=== PATIENT | male | born 1950 | race Caucasian/White ===

== ENCOUNTER → 2019-07-09 | Outpatient (CLI) | payer MEDICARE ==
--- NOTE | 2019-07-09 09:12 | Diagnostic Imaging Report ---
PROCEDURE: US Abdomen, limited. TECHNIQUE: Multiple Real-time grayscale images were obtained over the abdomen in various projections. INDICATION: Elevated liver function studies. FINDINGS: The liver measures 18 cm which is within normal limits. In the anterior right hepatic lobe, there is a benign unilocular simple cyst measuring 3.4 cm. In the lateral aspect of the left hepatic lobe inferiorly, there is a well-defined homogenously echogenic nodule measuring 2.3 cm with features most often associated with a benign cavernous hemangioma. The liver parenchyma is otherwise normal and there is no intra or extrahepatic bile duct dilatation. There are small stones within the gallbladder lumen but no gallbladder wall thickening or pericholecystic fluid. The intra and extrahepatic bile ducts are nondilated. The right kidney contains a cyst measuring 2.5 cm which is unilocular and simple as well as exophytic. The right kidney is otherwise normal measuring 11.5 cm. There is no ascites. The Evans sign is negative. The pancreas is partially visualized and unremarkable where seen. IMPRESSION: 1. Simple appearing hepatorenal cysts. 2. Homogenously hyperechoic left lobe liver nodule, most consistent with a cavernous hemangioma. 3. Cholelithiasis without findings of acute cholecystitis or biliary dilatation. 4. No ascites. Dictated by: Dictated on workstation # [id number]
== END ==
LOC: RAD 07:50
PROVIDERS: ATTEND Family Medicine
DX: K76.89 Other specified diseases of liver (principal); K80.20 Calculus of gallbladder without cholecystitis without obstruction
CPT/HCPCS: 76705

== ENCOUNTER → 2020-03-06 | Outpatient (CLI) | payer MEDICARE ==
[~2020-03-06] MED LIST: BARIUM SUSPENSION 2.1% (VANILLA SILQ) 450 ML PO ONE; HOLD METFORMIN - RECEIVED CONTRAST 20 ML VIAL IV SCH; IOHEXOL 350 MG/ML 100 ML (OMNIPAQUE 350) VIAL IV ONE
== END ==
LOC: RAD 08:33
PROVIDERS: ATTEND Internal Medicine Hematology & Oncology
DX: D58.2 Other hemoglobinopathies (principal); R94.5 Abnormal results of liver function studies; R39.11 Hesitancy of micturition; R91.1 Solitary pulmonary nodule
CPT/HCPCS: 71260; 74178

== ENCOUNTER 2020-04-01 05:52 | Outpatient (RCR) | payer MEDICARE ==
[~2020-04-01] VITALS: Ht 167.7 cm; Wt 71.8 kg
[2020-04-01] MEDS ORDERED: LISI40TA PO (12:33)
[2020-04-01] MEDS ORDERED: AMLO10TA7 PO (12:33)
[2020-04-01] MEDS ORDERED: RT-ALBUINH INH (12:33)
[2020-04-01] MEDS ORDERED: FLUT1DIS26 IH (12:33)
[2020-04-01] MEDS ORDERED: FAMO20TA3 PO (12:33)
[2020-04-02] MEDS ORDERED: SULF1TAB35 PO (11:36)
[2020-04-02] MEDS ORDERED: PHEN-640 PO (11:36)
[2020-04-02] MEDS ORDERED: HYOS0.1281 PO (11:36)
== END 2020-04-01 12:37 | disposition home or self-care (01) ==
LOC: PREOP 05:52
PROVIDERS: ATTEND Urology
DX: Z01.818 Encounter for other preprocedural examination (principal); C67.9 Malignant neoplasm of bladder, unspecified

== ENCOUNTER 2020-04-02 07:55 | Day surgery (SDC) | payer MEDICARE ==
[2020-04-02] VITALS (11 sets, daily range): BP systolic 76–155; BP diastolic 56–104
[~2020-04-02] VITALS: Ht 167 cm; Wt 71.8 kg
--- NOTE | 2020-04-02 07:22 | Progress Note-Pre Operative ---
Pre-Operative Progress Note H&P Reviewed The H&P was reviewed, patient examined and no changes noted. Date Seen by Provider: Apr 02, 2020 Time Seen by Provider: 09:13 Date H&P Reviewed: Apr 02, 2020 Time H&P Reviewed: 09:13 Pre-Operative Diagnosis: LARGE BLADDER TUMOR TEMI LOREDO MD Apr 02, 2020 07:22
--- NOTE | 2020-04-02 07:23 | Progress Note-Post Operative ---
Post-Operative Progess Note Surgeon (s)/Ethanol Operator (s) Surgeon TEMI LOREDO MD Ethanol Operator: NONE Pre-Operative Diagnosis LARGE BLADDER TUMOR Post-Operative Diagnosis SAME Procedure & Operative Findings Date of Procedure 04/02/20 Procedure Performed/Findings TURBT Anesthesia Type GENERAL Estimated Blood Loss Estimated blood loss (mL): NEGLIGIBLE Specimens/Packing Specimens Removed BLADDER TUMOR AND BASES Packing: NONE TEMI LOREDO MD Apr 02, 2020 07:23
--- NOTE | 2020-04-02 07:25 | Discharge Inst-Urology ---
Discharge Inst-Urology Reconcile Patient Problems Problems Reviewed?: Yes Final Diagnosis Bladder tumor Patient Instructions/Follow Up Plan/Assessment/Instructions Please make appointment to been seen in office in 2 weeks. Rest till then Keep bowels soft and moving Increase oral fluids for 48 hours and then as needed. Diet as tolerated. If questions or concerns contact your physician Or seek help at emergency department. TEMI LOREDO MD Apr 02, 2020 07:25
[~2020-04-02 07:55] MED LIST changes: +AMLO10TA7 PO; -BARIUM SUSPENSION 2.1% (VANILLA SILQ) 450 ML PO ONE; +FAMO20TA3 PO; +FLUT1DIS26 IH; -HOLD METFORMIN - RECEIVED CONTRAST 20 ML VIAL IV SCH; -IOHEXOL 350 MG/ML 100 ML (OMNIPAQUE 350) VIAL IV ONE; +LISI40TA PO; +RT-ALBUINH INH
--- OUTSIDE RECORDS SUMMARY | 2020-04-02 08:01 | XMS REPORT ---
Author Author Fausto Bernal Organization [facility] Address [address] [place] [address] Care Team Providers Care Executive Vice President Name Role Phone Dolores OBDULIO Unavailable PROBLEMS Type Condition ICD9-CM Code [id number] Code Onset Dates Condition S tatus SNOMED Code Problem Seasonal allergic rhinitis, unspecified trigger J3 0.2 Active 754613611 Problem Chronic obstructive pulmonary disease, unspecified COPD ty pe J44.9 Active 73676771 Problem Other hyperlipidemia E78.49 Active 04275998 Problem HTN (hypertension), benign I10 Act richie 68726616 Problem Pure hypercholesterolemia E78.00 Acti ve 955781221 Problem Essential hypertension I10 Active 74707084 ALLERGIES No Known Allergies ENCOUNTERS Encounter Location Date Diagnosis [address] [id number] [address] May, [address] [id number], [place] [address] Feb, [address] [id number] [address] January, [address] [id number] [address] January, Rash R21 [address] [id number], [place] [address] January, Pure hypercholesterolemia E7 8.00 ; Localized swelling of back R22.2 ; Chronic obstructive pulmonary disease, unspecified COPD type J44.9 and Seasonal allergic rhinitis, unspecified trigger J30.[address] [id number], [place] [address] January, [address] [id number] [place] [address] Nov, [facility] [place] [address] [id number] [place] [address] Nov, [facility] [place] [address] [id number] [place] [address] Sep, [facility] [place] [address] [id number] [place] [address] Aug, [facility] [place] [address] [id number] [place] [address] Jul, [facility] [place] [address] [id number] [place] [address] Jun, Elevated liver enzymes R74.8 [facility] [place] [address] [facility] [id number] [facility], [place] [address] Jun, Elevated alkaline phosphatase level R74.8 ; Essential hypertension I10 ; Pure hypercholesterolemia E78.00 and Encounter for immunization Z23 [facility] [address] [facility] [id number] [place], [place] [address] May, Other hyperlipidemia E78.49 and HTN (hypertension), benign I10 [facility] [place] [address] [id number] [place] [address] May, HTN (hypertension), benign I 10 [facility] [place] [address] [id number] [place] [address] Mar, [facility] [address] [facility] [id number] [place], [place] [address] Mar, [facility] [address] [facility] [id number] [place], [place] [address] Dec, [facility] [address] [facility] [id number] [place], [place] [address] Dec, HTN (hypertension), benign I10 and Pure hypercholesterolemia E78.00 [facility] [address] [facility] [id number] [place], [place] [address] Dec, Hypertension, unspecified type I10 and Other hyperlipidemia E78.49 [facility] [place] [address] [facility] [id number] [place], [place] [address] Nov, IMMUNIZATIONS No Known Immunizations SOCIAL HISTORY Never Assessed REASON FOR VISIT 6 month f/u PLAN OF CARE Activity Details Follow Up 6 Months Reason: VITAL SIGNS Height 66 in 2018-12-12 Weight 185 lbs 2018-12-12 BMI 29.86 kg/m2 2018-12-12 Blood pressure systolic 131 mmHg 2018-12-12 Blood pressure diastolic 70 mmHg 2018-12-12 MEDICATIONS Medication Instructions Dosage Frequency Start Date End Date Duration S tatus Lisinopril 40 MG Orally Once a day 1 tablet 24h Active Famotidine 20 MG Orally 2 times a day 1 tablet at bedtime 12h 30 day(s) Active Hydrochlorothiazide 25 MG Orally Once a day 1 tablet in the morning 24 h 90 days Active Atorvastatin Calcium 40 MG TAKE 1 TABLET BY MOUTH ONCE DAILY LATE IN THE DAY 90 days Active Advair Diskus 250-50 MCG/DOSE Inhalation Twice a day 1 puff 12h Active Colchicine 0.6 MG Orally Once a day 2 tablet 24h 30 day(s) Active Amlodipine Besylate 10 MG Orally Once a day 1 tablet 24h Active RESULTS No Results PROCEDURES Procedure Date Ordered Result Body Site [facility] VISIT ESTABLISHED PATIENT December 12, 2018 INSTRUCTIONS MEDICATIONS ADMINISTERED No Known Medications MEDICAL (GENERAL) HISTORY Type Description Date Medical History hypertension Medical History colonoscopy - 2018 Medical History Gout
--- OUTSIDE RECORDS SUMMARY | 2020-04-02 08:01 | XMS REPORT ---
Author Author Fausto Bernal Organization [facility] Address [address] [place] [address] Care Team Providers Care Electronic Organ Mechanic Name Role Phone DoloresRITIKAOBDULIO Unavailable PROBLEMS Type Condition ICD9-CM Code [id number] Code Onset Dates Condition S tatus SNOMED Code Problem Pure hypercholesterolemia E78.00 Acti ve 005494365 Problem Essential hypertension I10 Active 88473587 Problem Other hyperlipidemia E78.49 Active 58641928 Problem HTN (hypertension), benign I10 Act richie 81972234 ALLERGIES No Information ENCOUNTERS Encounter Location Date Diagnosis [address] [id number] [address] January, [address] [id number], [place] [address] Nov, [address] [id number] [address] Nov, [address] [id number], [place] [address] Sep, [address] 340 [id number], [place] [address] Aug, [address] [id number], [place] [address] Jul, [address] 340[address] [id number], [place] [address] Jun, Elevated liver enzymes R74.8 [facility] [address] [facility] [id number] [place] [address] Jun, Elevated alkaline phosphatase level R74.8 ; Essential hypertension I10 ; Pure hypercholesterolemia E78.00 and Encounter for immunization Z23 [facility] [place] [address] [facility] [id number] [place] [address] May, Other hyperlipidemia E78.49 and HTN (hypertension), benign I10 [address] [id number] [place] [address] May, HTN (hypertension), benign I [address] [id number] [place] [address] Mar, [facility] [place] [address] [id number] Mar, [facility] [place] [id number] [address] Dec, [facility] [place] [id number] [address] Dec, HTN (hypertension), benign I10 and Pure hypercholesterolemia E78.00 [facility] [place] [address]005[address], [place] [address] Dec, Hypertension, unspecified type I10 and Other hyperlipidemia E78.49 [facility] [place] [address]65[address] [id number] Nov, IMMUNIZATIONS No Known Immunizations SOCIAL HISTORY Never Assessed REASON FOR VISIT Lab (walk-in) PLAN OF CARE VITAL SIGNS MEDICATIONS Unknown Medications RESULTS No Results PROCEDURES Procedure Date Ordered Result Body Site LAB NOT BILLED BY [facility] December 11, 2018 ROUTINE VENIPUNCTURE 2018-12-11 N/A INSTRUCTIONS MEDICATIONS ADMINISTERED No Known Medications MEDICAL (GENERAL) HISTORY Type Description Date Medical History hypertension Medical History colonoscopy - 2018 Medical History Gout
--- OUTSIDE RECORDS SUMMARY | 2020-04-02 08:01 | XMS REPORT | Continuity of Care Document ---
Author Organization Unknown Address Unknown Phone Unavailable Allergies Active Description Code Type Severity Reaction Onset Reported/Identified Relationship to Patient Clinical Status Yes No Allergy Information Available [id number] 80015 Drug Allergy Unknown N/A 020 Medications There is no data. Problems Date Dx Coded Attending Type Code Diagnosis Diagnosed By 08/07/2019 SULEMA VERGARA, OBDULIO Brown Ot K76.89 OTHER SPECIFIED DISEASES OF LIVER 08/07/2019 OBDULIO LEONE MD, Ot K80.20 CALCULUS OF GALLBLADDER W/O CHOLECYSTITI 03/10/2020 TONNY HERNANDEZ MD, Ot D58. 2 OTHER HEMOGLOBINOPATHIES 03/10/2020 TONNY HERNANDEZ MD Ot R39. 11 HESITANCY OF MICTURITION 03/10/2020 TONNY HERNANDEZ MD Ot R91. 1 SOLITARY PULMONARY NODULE 03/10/2020 TONNY HERNANDEZ MD Ot R94. 5 ABNORMAL RESULTS OF LIVER FUNCTION STUDI 03/12/2020 TONNY HERNANDEZ MD Ot D58. 2 OTHER HEMOGLOBINOPATHIES 03/12/2020 TONNY HERNANDEZ MD Ot R39. 11 HESITANCY OF MICTURITION 03/12/2020 TONNY HERNANDEZ MD Ot R91. 1 SOLITARY PULMONARY NODULE 03/12/2020 TONNY HERNANDEZ MD Ot R94. 5 ABNORMAL RESULTS OF LIVER FUNCTION STUDI 03/28/2020 TONNY HERNANDEZ MD Ot D58. 2 OTHER HEMOGLOBINOPATHIES 03/28/2020 TONNY HERNANDEZ MD Ot R39. 11 HESITANCY OF MICTURITION 03/28/2020 TONNY HERNANDEZ MD Ot R91. 1 SOLITARY PULMONARY NODULE 03/28/2020 TONNY HERNANDEZ MD Ot R94. 5 ABNORMAL RESULTS OF LIVER FUNCTION STUDI Procedures There is no data. Results Test Result Range CMP - 12/11/18 11:34 GLUCOSE 92 mg/dL 65-99 UREA NITROGEN (BUN) 22 mg/dL 7-25 CREATININE 0.93 mg/dL 0.70-1.25 eGFR NON-AFR. [place] 83 mL/min/1.73m2 > OR = 60 eGFR 97 mL/min/1.73m2 > OR = 60 BUN/CREATININE RATIO NOT APPLICABLE (calc) 6-22 SODIUM 137 mmol/L 135-146 POTASSIUM 4.4 mmol/L 3.5-5.3 CHLORIDE 104 mmol/L 98-110 CARBON DIOXIDE 25 mmol/L 20-32 CALCIUM 9.2 mg/dL 8.6-10.3 PROTEIN, TOTAL 5.6 g/dL 6.1-8.1 ALBUMIN 3.1 g/dL 3.6-5.1 GLOBULIN 2.5 g/dL (calc) 1.9-3.7 ALBUMIN/GLOBULIN RATIO 1.2 (calc) 1.0-2. 5 BILIRUBIN, TOTAL 0.5 mg/dL 0.2-1.2 ALKALINE PHOSPHATASE 235 U/L 40-115 AST 27 U/L 10-35 ALT 19 U/L 9-46 LIPID PANEL - 06/11/19 08:12 CHOLESTEROL, TOTAL 365 mg/dL <200 HDL CHOLESTEROL 36 mg/dL >40 TRIGLYCERIDES 373 mg/dL <150 LDL-CHOLESTEROL 266 mg/dL (calc) NRG CHOL/HDLC RATIO 10.1 (calc) <5.0 NON HDL CHOLESTEROL 329 mg/dL (calc) <13 0 CMP - 06/11/19 08:12 GLUCOSE 92 mg/dL 65-99 UREA NITROGEN (BUN) 32 mg/dL 7-25 CREATININE 1.18 mg/dL 0.70-1.25 eGFR NON-AFR. [place] 63 mL/min/1.73m2 > OR = 60 eGFR 73 mL/min/1.73m2 > OR = 60 BUN/CREATININE RATIO 27 (calc) 6-22 SODIUM 141 mmol/L 135-146 POTASSIUM 4.8 mmol/L 3.5-5.3 CHLORIDE 104 mmol/L 98-110 CARBON DIOXIDE 24 mmol/L 20-32 CALCIUM 9.3 mg/dL 8.6-10.3 PROTEIN, TOTAL 5.5 g/dL 6.1-8.1 ALBUMIN 3.0 g/dL 3.6-5.1 GLOBULIN 2.5 g/dL (calc) 1.9-3.7 ALBUMIN/GLOBULIN RATIO 1.2 (calc) 1.0-2. 5 BILIRUBIN, TOTAL 0.5 mg/dL 0.2-1.2 ALKALINE PHOSPHATASE 378 U/L 40-115 AST 34 U/L 10-35 ALT 28 U/L 9-46 GGT - 07/03/19 12:22 GGT 519 U/L 3-70 LIPID PANEL - 02/07/20 11:52 CHOLESTEROL, TOTAL 258 mg/dL <200 HDL CHOLESTEROL 50 mg/dL > OR = 40 TRIGLYCERIDES 156 mg/dL <150 LDL-CHOLESTEROL 178 mg/dL (calc) NRG CHOL/HDLC RATIO 5.2 (calc) <5.0 NON HDL CHOLESTEROL 208 mg/dL (calc) <13 0 CMP - 02/07/20 11:52 GLUCOSE 92 mg/dL 65-99 UREA NITROGEN (BUN) 23 mg/dL 7-25 CREATININE 0.95 mg/dL 0.70-1.18 eGFR NON-AFR. [place] 81 mL/min/1.73m2 > OR = 60 eGFR 94 mL/min/1.73m2 > OR = 60 BUN/CREATININE RATIO NOT APPLICABLE (calc) 6-22 SODIUM 137 mmol/L 135-146 POTASSIUM 4.9 mmol/L 3.5-5.3 CHLORIDE 108 mmol/L 98-110 CARBON DIOXIDE 24 mmol/L 20-32 CALCIUM 8.9 mg/dL 8.6-10.3 PROTEIN, TOTAL 4.9 g/dL 6.1-8.1 ALBUMIN 2.6 g/dL 3.6-5.1 GLOBULIN 2.3 g/dL (calc) 1.9-3.7 ALBUMIN/GLOBULIN RATIO 1.1 (calc) 1.0-2. 5 BILIRUBIN, TOTAL 0.4 mg/dL 0.2-1.2 ALKALINE PHOSPHATASE 708 U/L 35-144 AST 52 U/L 10-35 ALT 44 U/L 9-46 CBC - 02/07/20 11:52 WHITE BLOOD CELL COUNT 8.5 Thousand/uL 3 .8-10.8 RED BLOOD CELL COUNT 6.01 Million/uL 4.2 0-5.80 HEMOGLOBIN 18.1 g/dL 13.2-17.1 HEMATOCRIT 53.9 % 38.5-50.0 MCV 89.7 fL 80.0-100.0 MCH 30.1 pg 27.0-33.0 MCHC 33.6 g/dL 32.0-36.0 RDW 15.3 % 11.0-15.0 PLATELET COUNT 429 Thousand/uL 140-400 MPV 11.6 fL 7.5-12.5 ABSOLUTE NEUTROPHILS 4896 cells/uL 1500- 7800 ABSOLUTE LYMPHOCYTES 2295 cells/uL 850-3 900 ABSOLUTE MONOCYTES 1003 cells/uL 200-950 ABSOLUTE EOSINOPHILS 145 cells/uL 15-500 ABSOLUTE BASOPHILS 162 cells/uL 0-200 NEUTROPHILS 57.6 % NRG LYMPHOCYTES 27.0 % NRG MONOCYTES 11.8 % NRG EOSINOPHILS 1.7 % NRG BASOPHILS 1.9 % NRG Encounters ACCT No. Visit Date/Time Discharge Status Pt. Type Provider Facility Loc./Unit Complaint [id number] 07/03/2019 11:40:00 07/03/2019 23:59: 59 CLS Outpatient OBDULIO LEONE [facility] [id number] 02/07/2020 10:45:00 Document Registration [id number] 07/03/2019 11:40:00 Document Registration [id number] 06/11/2019 08:00:00 Document Registration [id number] 12/11/2018 11:20:00 Document Registration [id number] 03/18/2020 12:41:00 23:59:59 CLS Outpatient TONNY HERNANDEZ MD [facility] ONC [id number] 03/06/2020 08:33:00 020 23:59:59 CLS Outpatient TONNY HERNANDEZ MD [facility] RAD ELEVATED HEMOGLOBIN,SJ G NODULE,URINARY HESITANCY [id number] 07/09/2019 07:50:00 23:59:59 CLS Outpatient OBDULIO LEONE MD [facility] RAD ELEVATED LIVER ENZYMES
[2020-04-02] MEDS ORDERED: cefTRIAXone FOR IV USE 1,000 MG in WATER (STERILE) FOR INJECTION 10 ML IV ONE (08:15)
[2020-04-02] MEDS: LACTATED RINGERS 1,000 ML IV PRN ×2 (08:41→11:36)
[2020-04-02] MEDS ORDERED: proPOfol 200 MG/20 ML (DIPRIVAN) VIAL IV ONE ×2 (10:07→11:08)
[2020-04-02] MEDS ORDERED: SEVOFLURANE (ULTANE) 15 ML INHAL SOLN ONE ×3 (10:07→11:23)
[2020-04-02] MEDS ORDERED: fentaNYL INJECTION 100 MCG/2 ML AMP ONE (10:08)
[2020-04-02] MEDS ORDERED: MIDAZOLAM 2 MG/2 ML (VERSED) VIAL ONE (10:08)
[2020-04-02] MEDS ORDERED: ONDANSETRON 4 MG/2 ML (SDV) Z0FRAN ONE (10:11)
[2020-04-02] MEDS ORDERED: LIDOCAINE PF 2% 5 ML (XYLOCAINE) VIAL ONE (11:23)
[2020-04-02] MEDS ORDERED: ONDANSETRON 4 MG/2 ML (SDV) Z0FRAN IVP PRN (11:30)
[2020-04-02] MEDS ORDERED: fentaNYL INJECTION 100 MCG/2 ML AMP IVP ONE (11:30)
[2020-04-02] MEDS ORDERED: morphine INJ 10 MG/ML 1ML (SYR OR VIAL) IVP ONE (11:30)
[2020-04-02] MEDS ORDERED: SULF1TAB35 PO (11:36)
[2020-04-02] MEDS ORDERED: HYOS0.1281 PO (11:36)
[2020-04-02] MEDS ORDERED: PHEN-640 PO (11:36)
[2020-04-02] MEDS ORDERED: PHENAZOPYRIDINE 100 MG (PYRIDIUM) TABLET ONE (12:51)
[2020-04-02] MEDS ORDERED: PHENAZOPYRIDINE 100 MG (PYRIDIUM) TABLET PO ONE (13:00)
[2020-04-02] MEDS ORDERED: HYOSCYAMINE 0.125 MG (LEVSIN) TAB PO ONE (13:00)
--- NOTE | 2020-04-02 18:15 | OPERATIVE REPORT ---
DATE OF SERVICE: 04/02/2020 PREOPERATIVE DIAGNOSIS: Large bladder tumor. POSTOPERATIVE DIAGNOSIS: Large bladder tumor. OPERATION PERFORMED: Transurethral resection of large bladder tumor. SURGEON: Temi Loredo MD ANESTHESIA: General. COMPLICATIONS: None. DESCRIPTION OF PROCEDURE: Under satisfactory general anesthesia, the patient in lithotomy position, genitalia were prepped and draped in the usual sterile fashion. The urethra was dilated with Jimena sound to accommodate a 27-German Harris resectoscope. Again, visualized the solitary large bladder tumor superficially looking and above and lateral to the right ureteral orifice. I went ahead and resected the tumor completely and then obtained deeper cuts from the bladder wall at the base of the tumor for staging. Bleeders were cauterized. Resection was complete and hemostasis was complete. Ureteric orifice was intact and was a clear efflux coming out easily from it. There was no further bladder tumor. The bladder was evacuated and resectoscope was removed. The patient tolerated the procedure and anesthesia well and was sent to recovery room in stable condition. Job ID: [id number] DocumentID: [id number] Dictated Date: 04/02/2020 11:25:52 Bench Examiner Date: 04/02/2020 18:14:44 Dictated By: TEMI LOREDO MD
== END 2020-04-02 13:20 | disposition home or self-care (01) ==
LOC: SDC 07:55
PROVIDERS: ATTEND Urology
DX: C67.9 Malignant neoplasm of bladder, unspecified (principal); I10 Essential (primary) hypertension; J44.9 Chronic obstructive pulmonary disease, unspecified; E78.5 Hyperlipidemia, unspecified; R91.1 Solitary pulmonary nodule; N52.9 Male erectile dysfunction, unspecified; N40.1 Benign prostatic hyperplasia with lower urinary tract symptoms; R31.9 Hematuria, unspecified; Z87.891 Personal history of nicotine dependence; Z79.899 Other long term (current) drug therapy; Z20.828 Contact with and (suspected) exposure to other viral communicable diseases
CPT/HCPCS: 52240; 87081; U0002; 87635

== ENCOUNTER 2020-04-18 13:21 | Outpatient (RCR) | payer MEDICARE ==
[2020-02-29 11:49] LABS: BASOPHILS # (AUTO) 0.1 10^3/uL (0.0-0.1); BASOPHILS % (AUTO) 2 % (0-10); EOSINOPHILS # (AUTO) 0.1 10^3/uL (0.0-0.3); EOSINOPHILS % (AUTO) 1 % (0-10); HEMATOCRIT 53 % (40-54); HEMOGLOBIN 17.8 G/DL (13.3-17.7); LYMPHOCYTES # (AUTO) 1.5 X 10^3 (1.0-4.0); LYMPHOCYTES % (AUTO) 21 % (12-44); MEAN CORPUSCULAR HEMOGLOBIN 30 PG (25-34); MEAN CORPUSCULAR HGB CONC 33 G/DL (32-36); MEAN CORPUSCULAR VOLUME 90 FL (80-99); MONOCYTES # (AUTO) 0.8 X 10^3 (0.0-1.0); MONOCYTES % (AUTO) 11 % (0-12); NEUTROPHILS # (AUTO) 4.7 X 10^3 (1.8-7.8); NEUTROPHILS % (AUTO) 65 % (42-75); PLATELET COUNT 377 10^3/uL (130-400); WHITE BLOOD COUNT 7.2 10^3/uL (4.3-11.0)
[2020-02-29 12:04] LABS: SMEAR SCAN COMMENT YES
[2020-02-29 12:14] LABS: CARBON DIOXIDE 22 MMOL/L (21-32); CHLORIDE 110 MMOL/L (98-107); SODIUM 141 MMOL/L (135-145)
[2020-02-29 12:15] LABS: ALANINE AMINOTRANSFERASE 41 U/L (0-55); ALBUMIN 2.5 GM/DL (3.2-4.5); ALKALINE PHOSPHATASE 590 U/L (40-136); BILIRUBIN,TOTAL 0.4 MG/DL (0.1-1.0); BUN/CREATININE RATIO 23; CALCIUM 8.6 MG/DL (8.5-10.1); GFR ESTIMATED > 60; GLUCOSE 98 MG/DL (70-105); TOTAL PROTEIN 5.6 GM/DL (6.4-8.2)
[2020-03-18 12:54] LABS: BASOPHILS # (AUTO) 0.1 10^3/uL (0.0-0.1); BASOPHILS % (AUTO) 2 % (0-10); EOSINOPHILS # (AUTO) 0.1 10^3/uL (0.0-0.3); EOSINOPHILS % (AUTO) 1 % (0-10); HEMATOCRIT 52 % (40-54); HEMOGLOBIN 17.3 G/DL (13.3-17.7); LYMPHOCYTES % (AUTO) 25 % (12-44); MEAN CORPUSCULAR HEMOGLOBIN 30 PG (25-34); MEAN CORPUSCULAR HGB CONC 34 G/DL (32-36); MEAN CORPUSCULAR VOLUME 89 FL (80-99); MEAN PLATELET VOLUME 10.6 FL (7.4-10.4); MONOCYTES % (AUTO) 13 % (0-12); NEUTROPHILS # (AUTO) 4.6 X 10^3 (1.8-7.8); NEUTROPHILS % (AUTO) 59 % (42-75); PLATELET COUNT 394 10^3/uL (130-400); WHITE BLOOD COUNT 7.8 10^3/uL (4.3-11.0)
[2020-03-18 13:11] LABS: ALANINE AMINOTRANSFERASE 50 U/L (0-55); ALBUMIN 2.3 GM/DL (3.2-4.5); ALKALINE PHOSPHATASE 624 U/L (40-136); BILIRUBIN,TOTAL 0.4 MG/DL (0.1-1.0); BUN/CREATININE RATIO 18; CALCIUM 8.6 MG/DL (8.5-10.1); CARBON DIOXIDE 22 MMOL/L (21-32); CHLORIDE 106 MMOL/L (98-107); CREATININE SERUM 0.92 MG/DL (0.60-1.30); GFR ESTIMATED > 60; GLUCOSE 97 MG/DL (70-105); POTASSIUM 4.2 MMOL/L (3.6-5.0); SODIUM 137 MMOL/L (135-145); TOTAL PROTEIN 5.4 GM/DL (6.4-8.2)
[~2020-04-18 13:21] MED LIST changes: +HYOS0.1281 PO; +PHEN-640 PO; +SULF1TAB35 PO
== END 2020-05-29 | disposition home or self-care (01) ==
LOC: ONC 13:21
PROVIDERS: ATTEND Internal Medicine Hematology & Oncology
DX: D58.2 Other hemoglobinopathies (principal); R94.5 Abnormal results of liver function studies; R91.1 Solitary pulmonary nodule; E78.5 Hyperlipidemia, unspecified; J44.9 Chronic obstructive pulmonary disease, unspecified; M25.551 Pain in right hip; R39.11 Hesitancy of micturition; Z79.899 Other long term (current) drug therapy; Z87.891 Personal history of nicotine dependence
CPT/HCPCS: 80053; 81270; 82105; 84153; 84403; 85025; G0463; 99213; 99214

== ENCOUNTER 2020-07-16 11:31 | Emergency (ER) | payer MEDICARE ==
[~2020-07-16] VITALS: Ht 167.7 cm; Wt 78.0 kg
[~2020-07-16 11:31] MED LIST changes: +AMLO-251 PO; -AMLO10TA7 PO
--- NOTE | 2020-07-16 12:26 | ED General ---
General Chief Complaint: General Problems/Pain Stated Complaint: VOMIT, DIARRHEA, GENERAL BODY ACHES, COVID POS Nursing Triage Note: PT AMBULATE TO ROOM 10 WITH C/O ABDOMINAL AND LOWER EXTREMITY SWELLING. PT REPORTS HAVING A CANCER TUMOR REMOVED FROM BLADDER IN APRIL. PT STATES THAT HE THOUGHT THAT "SINCE I WAS HERE I BETTER GET CHECKED OUT." Nursing Sepsis Screen: No Definite Risk History of Present Illness Date Seen by Provider: Jul 16, 2020 Time Seen by Provider: 11:58 Initial Comments 69-year-old male presents because he was bringing his in to be checked out. Patient reports he had a cancer tumor removed from his bladder in April, that he got chemotherapy in May. Since then he has had swelling of his abdomen and lower extremities. Patient reports that since he was here he wanted to have his kidneys checked out. He was started on a water pill recently but cannot tell me which one or what the dosages. Patient is known COVID positive is a have any complaints related to the COVID diagnosis. Patient denies any nausea vomiting diarrhea cough or other systemic complaints. Allergies and Home Medications Allergies Coded Allergies: No Known Drug Allergies (Unverified , 04/01/20) Home Medications Albuterol Sulfate 1 Puff Puff, 2 PUFF INH Q4H PRN for WHEEZING, (Reported) 1 PUFF = 90 MCG Amlodipine Besylate 10 Mg Tablet, 10 MG PO DAILY, (Reported) Famotidine 20 Mg Tablet, 20 MG PO DAILY, (Reported) Fluticasone/Salmeterol 1 Each Blst.w.dev, 1 EACH IH BID, (Reported) Hyoscyamine Sulfate 0.125 Mg Tablet, 1-2 TAB PO Q4H Prescribed by: MARIA C ARRIAGA on 04/02/20 1136 Lisinopril 40 Mg Tablet, 40 MG PO DAILY, (Reported) Phenazopyridine HCl 200 Mg Tablet, 1 TAB PO TID Prescribed by: MARIA C ARRIAGA on 04/02/20 1136 Sulfamethoxazole/Trimethoprim 1 Each Tablet, 1 EACH PO BID Prescribed by: MARIA C ARRIAGA on 04/02/20 1136 Patient Home Medication List Home Medication List Reviewed: Yes Review of Systems Review of Systems Constitutional: No chills, No fever, No malaise EENTM: no symptoms reported Respiratory: No cough, No short of breath Cardiovascular: No chest pain; edema; No palpitations Gastrointestinal: see HPI Genitourinary: see HPI Musculoskeletal: no symptoms reported Skin: no symptoms reported Psychiatric/Neurological: No Symptoms Reported Hematologic/Lymphatic: No Symptoms Reported Past Czgywkr-Mgxcjm-Khisco Hx Past Med/Social Hx: Reviewed Nursing Past Med/Soc Hx Patient Social History Alcohol Use: Rarely Uses Recreational Drug Use: No Smoking Status: Former Smoker Former Smoker, Quit: Apr 01, 2011 2nd Hand Smoke Exposure: No Recent Foreign Travel: No Contact w/Someone Who Travel: No Recent Infectious Disease Expo: No Recent Hopitalizations: No Physical Abuse: No Sexual Abuse: No Mistreated: No Fear: No Seasonal Allergies Seasonal Allergies: No Past Medical History Surgeries: No Respiratory: Yes COPD, Emphysema Currently Using CPAP: No Currently Using BIPAP: No Cardiac: Yes Hypertension Neurological: No Genitourinary: Yes (bladder tumor) Gastrointestinal: Yes Gastroesophageal Reflux Musculoskeletal: Yes Arthritis, Gout Endocrine: No HEENT: No Cancer: No Psychosocial: No Integumentary: No Blood Disorders: No Physical Exam Vital Signs Vital Signs - First Documented 07/16/20 11:53 Temp 36.7 Pulse 89 Resp 18 B/P (MAP) 139/102 (114) O2 Delivery Room Air Capillary Refill : Less Than 3 Seconds Height, Weight, BMI Height: '" Weight: lbs. oz. kg; 27.00 BMI Method: General Appearance: No Apparent Distress, WD/WN HEENT: PERRL/EOMI Neck: Non Tender, Supple Respiratory: Lungs Clear, Normal Breath Sounds Cardiovascular: Regular Rate, Rhythm, Other (2+ edema bilateral lower extremities) Gastrointestinal: Other (protuberant, soft, nontender) Back: Normal Inspection, No CVA Tenderness Extremity: Normal Capillary Refill, Swelling (2+ pedal edema) Neurologic/Psychiatric: Alert, Oriented x3, No Motor/Sensory Deficits, Normal Mood/Affect, immigration services officer II-XII Norm as Tested Progress/Results/Core Measures Suspected Sepsis Recent Fever Within 48 Hours: No Infection Criteria Present: None New/Unexplained Altered Menta: No Sepsis Screen: No Definite Risk SIRS Temperature: Pulse: 89 Respiratory Rate: 18 Laboratory Tests 07/16/20 13:02: White Blood Count 6.8 Blood Pressure 139 /102 Mean: 114 Laboratory Tests 07/16/20 13:02: Creatinine 0.98, Platelet Count 337, Total Bilirubin 0.4 Results/Orders Lab Results Laboratory Tests Test 07/16/20 13:02 Range/Units White Blood Count 6.8 4.3-11.0 10^3/uL Red Blood Count 5.44 4.30-5.52 10^6/uL Hemoglobin 16.5 13.3-17.7 g/dL Hematocrit 50 40-54 % Mean Corpuscular Volume 91 80-99 fL Mean Corpuscular Hemoglobin 30 25-34 pg Mean Corpuscular Hemoglobin Concent 33 32-36 g/dL Red Cell Distribution Width 16.9 H 10.0-14.5 % Platelet Count 337 130-400 10^3/uL Mean Platelet Volume 11.7 9.0-12.2 fL Immature Granulocyte % (Auto) 0 % Neutrophils (%) (Auto) 60 42-75 % Lymphocytes (%) (Auto) 20 12-44 % Monocytes (%) (Auto) 18 H 0-12 % Eosinophils (%) (Auto) 0 0-10 % Basophils (%) (Auto) 2 0-10 % Neutrophils # (Auto) 4.1 1.8-7.8 10^3/uL Lymphocytes # (Auto) 1.3 1.0-4.0 10^3/uL Monocytes # (Auto) 1.2 H 0.0-1.0 10^3/uL Eosinophils # (Auto) 0.0 0.0-0.3 10^3/uL Basophils # (Auto) 0.1 0.0-0.1 10^3/uL Immature Granulocyte # (Auto) 0.0 0.0-0.1 10^3/uL Sodium Level 138 135-145 MMOL/L Potassium Level 4.0 3.6-5.0 MMOL/L Chloride Level 107 98-107 MMOL/L Carbon Dioxide Level 23 21-32 MMOL/L Anion Gap 8 5-14 MMOL/L Blood Urea Nitrogen 27 H 7-18 MG/DL Creatinine 0.98 0.60-1.30 MG/DL Estimat Glomerular Filtration Rate > 60 BUN/Creatinine Ratio 28 Glucose Level 83 70-105 MG/DL Calcium Level 7.8 L 8.5-10.1 MG/DL Corrected Calcium 9.6 8.5-10.1 MG/DL Total Bilirubin 0.4 0.1-1.0 MG/DL Aspartate Amino Transf (AST/SGOT) 56 H 5-34 U/L Alanine Aminotransferase (ALT/SGPT) 31 0-55 U/L Alkaline Phosphatase 673 H 40-136 U/L Total Protein 4.5 L 6.4-8.2 GM/DL Albumin 1.8 L 3.2-4.5 GM/DL My Orders Orders - EPI SERRANO DO Cbc With Automated Diff (07/16/20 12:15) Comprehensive Metabolic Panel (07/16/20 12:15) Acute Abd Series (07/16/20 12:15) Vital Signs/I&O 07/16/20 11:53 Temp 36.7 Pulse 89 Resp 18 B/P (MAP) 139/102 (114) O2 Delivery Room Air Capillary Refill : Less Than 3 Seconds Blood Pressure Mean: 114 Progress Note : Time: 13:30 Progress Note Patient's vital signs exam are stable. No acute findings that are concerning finding on his kidney function test as he was worried about. Patient with chronic abdominal swelling that I would have him follow with his primary care pr ovider for further evaluation. Patient is currently on a water pill which I recommended he increase it to a day for the next 3-4 days to help with his pedal edema. Patient is stable will be discharged home Departure Impression Primary Impression: 2019 novel coronavirus disease (COVID-19) Additional Impression: Edema leg Disposition: 01 HOME, SELF-CARE Condition: Stable Departure-Patient Inst. Referrals: JN OLEA MD (PCP/Family) Primary Care Physician Patient Instructions: Dependent Edema (DC), Coronavirus Disease 2019 (COVID-19) Overview Add. Discharge Instructions: Please increase your water pill to a day for 3-4 days Follow-up with your primary care provider Tuesday or Tuesday of next week All discharge instructions reviewed with patient and/or family. Voiced understanding. EPI SERRANO DO Jul 16, 2020 12:26
--- NOTE | 2020-07-16 12:58 | Diagnostic Imaging Report ---
INDICATION: Abdominal pain and swelling FINDINGS: No focal consolidation, effusion or pneumothorax. No free air beneath the diaphragms. The bowel gas pattern unremarkable. No air-fluid level or pneumatosis. IMPRESSION: No acute appearing abnormality. Dictated by: Dictated on workstation # [id number]
[2020-07-16 13:09] LABS: BASOPHILS # (AUTO) 0.1 10^3/uL (0.0-0.1); BASOPHILS % (AUTO) 2 % (0-10); EOSINOPHILS % (AUTO) 0 % (0-10); HEMATOCRIT 50 % (40-54); HEMOGLOBIN 16.5 g/dL (13.3-17.7); LYMPHOCYTES # (AUTO) 1.3 10^3/uL (1.0-4.0); LYMPHOCYTES % (AUTO) 20 % (12-44); MEAN CORPUSCULAR HEMOGLOBIN 30 pg (25-34); MEAN CORPUSCULAR HGB CONC 33 g/dL (32-36); MEAN CORPUSCULAR VOLUME 91 fL (80-99); MEAN PLATELET VOLUME 11.7 fL (9.0-12.2); MONOCYTES # (AUTO) 1.2 10^3/uL (0.0-1.0); MONOCYTES % (AUTO) 18 % (0-12); NEUTROPHILS # (AUTO) 4.1 10^3/uL (1.8-7.8); NEUTROPHILS % (AUTO) 60 % (42-75); PLATELET COUNT 337 10^3/uL (130-400); WHITE BLOOD COUNT 6.8 10^3/uL (4.3-11.0)
[2020-07-16 13:18] LABS: ALBUMIN 1.8 GM/DL (3.2-4.5); CHLORIDE 107 MMOL/L (98-107); SODIUM 138 MMOL/L (135-145)
[2020-07-16 13:19] LABS: CALCIUM 7.8 MG/DL (8.5-10.1)
[2020-07-16 13:20] LABS: GLUCOSE 83 MG/DL (70-105); TOTAL PROTEIN 4.5 GM/DL (6.4-8.2)
[2020-07-16 13:21] LABS: CARBON DIOXIDE 23 MMOL/L (21-32)
[2020-07-16 13:22] LABS: BILIRUBIN,TOTAL 0.4 MG/DL (0.1-1.0)
[2020-07-16 13:24] LABS: ALKALINE PHOSPHATASE 673 U/L (40-136); CREATININE SERUM 0.98 MG/DL (0.60-1.30); GFR ESTIMATED > 60
[2020-07-16 13:25] LABS: BUN/CREATININE RATIO 28
[2020-07-16 13:27] LABS: ALANINE AMINOTRANSFERASE 31 U/L (0-55)
[2020-07-16 13:34] LABS: SMEAR SCAN COMMENT YES
[2020-07-16 13:53] VITALS: BP 151/81
== END 2020-07-16 13:53 | disposition home or self-care (01) ==
LOC: EDUNIT# 11:31 → ER 11:35
DX: U07.1 COVID-19 (principal); R60.0 Localized edema; I10 Essential (primary) hypertension; K21.9 Gastro-esophageal reflux disease without esophagitis; Z87.891 Personal history of nicotine dependence
CPT/HCPCS: 36415; 74022; 80053; 85025

== ENCOUNTER 2020-07-26 12:12 | Inpatient (IN) | payer MEDICARE ==
[~2020-07-26] VITALS: Ht 167 cm; Wt 78.0 kg
[2020-07-26 12:54] LABS: BASOPHILS % (AUTO) 1 % (0-10); EOSINOPHILS % (AUTO) 0 % (0-10); HEMATOCRIT 50 % (40-54); HEMOGLOBIN 16.7 g/dL (13.3-17.7); LYMPHOCYTES # (AUTO) 1.2 10^3/uL (1.0-4.0); LYMPHOCYTES % (AUTO) 19 % (12-44); MEAN CORPUSCULAR HEMOGLOBIN 30 pg (25-34); MEAN CORPUSCULAR HGB CONC 33 g/dL (32-36); MEAN CORPUSCULAR VOLUME 89 fL (80-99); MEAN PLATELET VOLUME 12.1 fL (9.0-12.2); MONOCYTES # (AUTO) 0.6 10^3/uL (0.0-1.0); MONOCYTES % (AUTO) 10 % (0-12); NEUTROPHILS # (AUTO) 4.4 10^3/uL (1.8-7.8); NEUTROPHILS % (AUTO) 70 % (42-75); PLATELET COUNT 245 10^3/uL (130-400); WHITE BLOOD COUNT 6.3 10^3/uL (4.3-11.0)
--- NOTE | 2020-07-26 13:30 | Diagnostic Imaging Report ---
INDICATION: Sepsis. Frontal view chest is compared to exam from the 4th. The lungs are clear. The heart and vascularity are normal. There are no pleural effusions. IMPRESSION: Negative chest. Dictated by: Dictated on workstation # [id number]
[2020-07-26 13:32] LABS: ALBUMIN 1.5 GM/DL (3.2-4.5); CHLORIDE 103 MMOL/L (98-107); POTASSIUM 3.8 MMOL/L (3.6-5.0); SODIUM 136 MMOL/L (135-145)
[2020-07-26 13:34] LABS: GLUCOSE 78 MG/DL (70-105); PROTHROMBIN TIME PATIENT 13.2 SEC (12.2-14.7); TOTAL PROTEIN 4.1 GM/DL (6.4-8.2)
[2020-07-26 13:36] LABS: BILIRUBIN,TOTAL 0.7 MG/DL (0.1-1.0); CARBON DIOXIDE 23 MMOL/L (21-32)
[2020-07-26 13:38] LABS: ALKALINE PHOSPHATASE 970 U/L (40-136); GFR ESTIMATED > 60
[2020-07-26 13:39] LABS: BUN/CREATININE RATIO 30
[2020-07-26 13:41] LABS: CLARITY,URINE CLEAR; COLOR,URINE DARK YELLOW; GLUCOSE, URINE (UA) NEGATIVE (NEGATIVE); KETONES,URINE NEGATIVE (NEGATIVE); LEUKOCYTE ESTERASE ,URINE NEGATIVE (NEGATIVE); NITRITE,URINE NEGATIVE (NEGATIVE); PROTEIN,URINE 2+ (NEGATIVE)
[2020-07-26 13:41] LABS: ALANINE AMINOTRANSFERASE 41 U/L (0-55)
[2020-07-26 14:03] LABS: BACTERIA,URINE TRACE /HPF
[2020-07-26 14:18] LABS: BILIRUBIN,URINE 2+ (NEGATIVE)
[2020-07-26] MEDS ORDERED: LACTATED RINGERS 1,000 ML IV ONE ×2 (14:37→18:05)
--- NOTE | 2020-07-26 14:54 | ED General ---
General Chief Complaint: Respiratory Problems Stated Complaint: COVID POSITIVE Nursing Triage Note: PT PRESENTS TO E [facility] FROM HOME WITH COMNPLAINTS OF INCREASED SOA WITH EXERTION. PT REPORTS HE TESTED POSTIVE ON 07/13/2020 FROM COVID. PT REPORTS HIS IS INPT CURRENTLY FOR COVID. PT ALSO REPORTS MAGGIEJAYME Nursing Sepsis Screen: No Definite Risk Source of Information: Patient, Old Records Exam Limitations: No Limitations History of Present Illness Date Seen by Provider: Jul 26, 2020 Time Seen by Provider: 12:21 Initial Comments This 69-year-old gentleman presents to the emergency room with shortness of breath, weakness, fatigue, poor oral intake, and hypoxia. He was diagnosed with Covid 19 almost 2 weeks ago. His is presently admitted for COVID-19. He notes oxygen saturations in the upper 80s at home. He has been using a family members oxygen concentrator. EMS noted oxygen saturation of 87% on room air while he was transferring to their cot. He also has history of bladder cancer which has been treated with surgery and chemotherapy. Allergies and Home Medications Allergies Coded Allergies: No Known Drug Allergies (Unverified , 04/01/20) Home Medications Albuterol Sulfate 1 Puff Puff, 2 PUFF INH Q4H PRN for WHEEZING, (Reported) 1 PUFF = 90 MCG Amlodipine Besylate 10 Mg Tablet, 10 MG PO DAILY, (Reported) Famotidine 20 Mg Tablet, 20 MG PO DAILY, (Reported) Fluticasone/Salmeterol 1 Each Blst.w.dev, 1 EACH IH BID, (Reported) Hyoscyamine Sulfate 0.125 Mg Tablet, 1-2 TAB PO Q4H Prescribed by: MARIA C ARRIAGA on 04/02/20 1136 Lisinopril 40 Mg Tablet, 40 MG PO DAILY, (Reported) Phenazopyridine HCl 200 Mg Tablet, 1 TAB PO TID Prescribed by: MARIA C ARRIAGA on 04/02/20 1136 Sulfamethoxazole/Trimethoprim 1 Each Tablet, 1 EACH PO BID Prescribed by: MARIA C ARRIAGA on 04/02/20 1136 Patient Home Medication List Home Medication List Reviewed: Yes Review of Systems Review of Systems Constitutional: no symptoms reported EENTM: no symptoms reported Respiratory: see HPI Cardiovascular: no symptoms reported Gastrointestinal: see HPI, diarrhea Genitourinary: no symptoms reported Musculoskeletal: no symptoms reported Skin: no symptoms reported Psychiatric/Neurological: No Symptoms Reported Hematologic/Lymphatic: No Symptoms Reported Past Zaprmvk-Tdxyae-Fxqsgq Hx Past Med/Social Hx: Reviewed Nursing Past Med/Soc Hx Patient Social History Alcohol Use: Rarely Uses Recreational Drug Use: No Smoking Status: Former Smoker Former Smoker, Quit: Apr 01, 2011 2nd Hand Smoke Exposure: No Recent Foreign Travel: No Contact w/Someone Who Travel: No Recent Infectious Disease Expo: No Recent Hopitalizations: No Seasonal Allergies Seasonal Allergies: No Past Medical History Surgeries: Yes Bladder Surgery Respiratory: Yes COPD, Emphysema Currently Using CPAP: No Currently Using BIPAP: No Cardiac: Yes Hypertension Neurological: No Genitourinary: Yes (bladder tumor) Gastrointestinal: Yes Gastroesophageal Reflux Musculoskeletal: Yes Arthritis, Gout Endocrine: No HEENT: No Cancer: Yes Bladder Did You Recieve Any Treatments: Yes What Type of Treatment Did You: Chemotherapy, Surgical Intervention Psychosocial: No Integumentary: No Blood Disorders: No Physical Exam Vital Signs Vital Signs - First Documented Capillary Refill : Less Than 3 Seconds Height, Weight, BMI Height: '" Weight: lbs. oz. kg; 26.00 BMI Method: General Appearance: No Apparent Distress, WD/WN HEENT: PERRL/EOMI, Normal ENT Inspection, Other (Mucous membranes dry) Neck: Normal Inspection Respiratory: Lungs Clear, Normal Breath Sounds, No Accessory Muscle Use, No Respiratory Distress Cardiovascular: Regular Rate, Rhythm, No Edema, No Murmur Gastrointestinal: Normal Bowel Sounds, Non Tender, Soft Extremity: Normal Inspection, Pedal Edema Neurologic/Psychiatric: Alert, Oriented x3, No Motor/Sensory Deficits, Normal Mood/Affect, lay ups assembler II-XII Norm as Tested Skin: Normal Color, Warm/Dry Focused Exam Lactate Level 07/26/20 13:14: Lactic Acid Level 1.09 Lactic Acid Level Progress/Results/Core Measures Suspected Sepsis Recent Fever Within 48 Hours: No Infection Criteria Present: Documented Infection New/Unexplained Altered Menta: No Sepsis Screen: No Definite Risk SIRS Temperature: Pulse: 90 Respiratory Rate: 22 Laboratory Tests 07/26/20 12:30: White Blood Count 6.3 Blood Pressure 101 /77 Mean: 85 07/26/20 13:14: Lactic Acid Level 1.09 Laboratory Tests 07/26/20 12:30: Platelet Count 245 07/26/20 13:14: Creatinine 0.90, INR Comment 1.0, Total Bilirubin 0.7 Results/Orders Lab Results Laboratory Tests Test 07/26/20 12:30 07/26/20 13:14 07/26/20 13:34 Range/Units White Blood Count 6.3 4.3-11.0 10^3/uL Red Blood Count 5.59 H 4.30-5.52 10^6/uL Hemoglobin 16.7 13.3-17.7 g/dL Hematocrit 50 40-54 % Mean Corpuscular Volume 89 80-99 fL Mean Corpuscular Hemoglobin 30 25-34 pg Mean Corpuscular Hemoglobin Concent 33 32-36 g/dL Red Cell Distribution Width 17.4 H 10.0-14.5 % Platelet Count 245 130-400 10^3/uL Mean Platelet Volume 12.1 9.0-12.2 fL Immature Granulocyte % (Auto) 1 % Neutrophils (%) (Auto) 70 42-75 % Lymphocytes (%) (Auto) 19 12-44 % Monocytes (%) (Auto) 10 0-12 % Eosinophils (%) (Auto) 0 0-10 % Basophils (%) (Auto) 1 0-10 % Neutrophils # (Auto) 4.4 1.8-7.8 10^3/uL Lymphocytes # (Auto) 1.2 1.0-4.0 10^3/uL Monocytes # (Auto) 0.6 0.0-1.0 10^3/uL Eosinophils # (Auto) 0.0 0.0-0.3 10^3/uL Basophils # (Auto) 0.0 0.0-0.1 10^3/uL Immature Granulocyte # (Auto) 0.0 0.0-0.1 10^3/uL Prothrombin Time 13.2 12.2-14.7 SEC INR Comment 1.0 0.8-1.4 Activated Partial Thromboplast Time 30 24-35 SEC D-Dimer 4.80 H 0.00-0.49 UG/ML Sodium Level 136 135-145 MMOL/L Potassium Level 3.8 3.6-5.0 MMOL/L Chloride Level 103 98-107 MMOL/L Carbon Dioxide Level 23 21-32 MMOL/L Anion Gap 10 5-14 MMOL/L Blood Urea Nitrogen 27 H 7-18 MG/DL Creatinine 0.90 0.60-1.30 MG/DL Estimat Glomerular Filtration Rate > 60 BUN/Creatinine Ratio 30 Glucose Level 78 70-105 MG/DL Lactic Acid Level 1.09 0.50-2.00 MMOL/L Calcium Level 8.0 L 8.5-10.1 MG/DL Corrected Calcium 10.0 8.5-10.1 MG/DL Total Bilirubin 0.7 0.1-1.0 MG/DL Aspartate Amino Transf (AST/SGOT) 89 H 5-34 U/L Alanine Aminotransferase (ALT/SGPT) 41 0-55 U/L Alkaline Phosphatase 970 H 40-136 U/L Lactate Dehydrogenase 279 H 125-220 U/L C-Reactive Protein High Sensitivity 1.30 H 0.00-0.50 MG/DL Total Protein 4.1 L 6.4-8.2 GM/DL Albumin 1.5 L 3.2-4.5 GM/DL Procalcitonin 0.19 H <0.10 NG/ML Urine Color DARK YELLOW Urine Clarity CLEAR Urine pH 6.0 5-9 Urine Specific [place] >=1.030 1.016-1.022 Urine Protein 2+ H NEGATIVE Urine Glucose (UA) NEGATIVE NEGATIVE Urine Ketones NEGATIVE NEGATIVE Urine Nitrite NEGATIVE NEGATIVE Urine Bilirubin 2+ H NEGATIVE Urine Urobilinogen 0.2 < = 1.0 MG/DL Urine Leukocyte Esterase NEGATIVE NEGATIVE Urine RBC (Auto) TRACE-I NEGATIVE Urine RBC NONE /HPF Urine WBC NONE /HPF Urine Crystals NONE /LPF Urine Bacteria TRACE /HPF Urine Casts NONE /LPF Urine Mucus NEGATIVE /LPF Urine Culture Indicated NO My Orders Orders - RACHEL PEÑA MD Procalcitonin (Pct) (07/26/20 12:21) Hs C Reactive Protein (07/26/20 12:21) LDH (07/26/20 12:21) Cbc With Automated Diff (07/26/20 12:21) Comprehensive Metabolic Panel (07/26/20 12:21) Blood Culture (07/26/20 12:21) Sputum Culture (07/26/20 12:21) Urine Culture (07/26/20 12:21) Protime With Inr (07/26/20 12:21) Partial Thromboplastin Time (07/26/20 12:21) Chest 1 View, Ap/Pa Only (07/26/20 12:21) Ed Iv/Invasive Line Start (07/26/20 12:21) Ed Iv/Invasive Line Start (07/26/20 12:21) Vital Signs Adult Sepsis Patie Q15M (07/26/20 12:21) O2 (07/26/20 12:21) Remove Rings In Anticipation O (07/26/20 12:21) Lactic Acid Analyzer (07/26/20 12:21) Urinalysis (07/26/20 12:35) Dexamethasone Injection (Decadron Inje (07/26/20 14:45) Lactated Ringers (Lr 1000 Ml Iv Solution (07/26/20 14:37) Fibrin Degradation Products (07/26/20 13:14) Ct Angio Chest W (07/26/20 15:44) Iohexol Injection (Omnipaque 350 Mg/Ml 1 (07/26/20 16:00) Received Contrast (Hold Metformin- Contr (07/26/20 16:00) Ns (Ivpb) (Sodium Chloride 0.9% Ivpb Bag (07/26/20 16:00) Medications Given in ED Current Medications Medications Dose Ordered Sig/Ruby Route Start Time Stop Time Status Last Admin Dose Admin Dexamethasone Sodium Phosphate 4 mg ONCE ONCE IV 07/26/20 14:45 07/26/20 14:46 DC 07/26/20 16:39 4 MG Lactated Ringer's 1,000 ml @ 0 mls/hr Q0M ONCE IV 07/26/20 14:37 07/26/20 14:38 DC 07/26/20 16:39 0 MLS/HR Vital Signs/I&O 07/26/20 07/26/20 12:15 12:15 Temp 36.3 Pulse 90 Resp 22 B/P (MAP) 101/77 (85) Pulse Ox 97 97 O2 Delivery Nasal Cannula Nasal Cannula O2 Flow Rate 3.00 3.00 Capillary Refill : Less Than 3 Seconds Blood Pressure Mean: 85 Progress Note : Progress Note Patient was seen and examined. Labs were reviewed. Oxygen saturation was as low as 91% on room air while at rest. It dropped to 89% when he got up to use the restroom. He was treated with oxygen therapy and dexamethasone. D-dimer was elevated. CT angiogram showed multiple incidental findings but no evidence of pulmonary emboli. Patient is having a hard time getting by at home even with borrowing a family members oxygen. He is weak and having difficulty maintaining food and hydration. He requests admission which is certainly reasonable given his comorbidities, age, and hypoxia. Diagnostic Imaging Diagonstic Imaging: CT Plain Films/CT/US/NM/MRI: chest Comments CT angiogram chest reviewed by me and report reviewed. See report below: NAME: GALO WOLF [facility] REC#: [id number] PT STATUS: ADM IN : 1950 PHYSICIAN: RACHEL PEÑA MD ADMIT DATE: 07/26/20 Signed Date of Exam:07/26/20 CT ANGIO CHEST W PROCEDURE: CT angiography of the chest with contrast. TECHNIQUE: Multiple contiguous axial images were obtained through the chest after uneventful bolus administration of intravenous contrast. 3D reconstructed CTA MIP acquisitions were also performed. Auto Exposure Controls were utilized during the CT exam to meet ALARA standards for radiation dose reduction. INDICATION: Shortness of breath and possible pulmonary embolism. COMPARISON: Correlation is made with prior CT from 03/06/2020. FINDINGS: Evaluation of the pulmonary arterial system is without evidence of thromboembolism. No definite filling defect is seen within central, lobar or segmental branches. The thoracic aorta is calcified but non-aneurysmal. No dissection is identified. There is trace pericardial fluid. There is trace bilateral pleural effusions. Parenchymal evaluation does show centrilobular emphysematous changes throughout both lungs. Right hemidiaphragm is elevated. There are some interstitial changes in both bases. There is also some infiltrate or atelectasis in the left base. Upper abdomen does show development of some perihepatic and perisplenic ascites. This was not present on prior CT. There appears to be some stranding in the mesentery and omentum. Hepatic low density is noted consistent with a cyst. A fat-containing lesion in the left latissimus dorsi muscle is again noted. IMPRESSION: 1. No evidence of pulmonary embolism or thoracic aortic dissection. 2. Pericardial and small bilateral pleural effusions. 3. Centrilobular emphysematous changes. There is some minimal infiltrate or atelectasis at both bases. 4. Development of upper abdominal ascites. There is also some stranding in the omentum and mesentery. Peritoneal carcinomatosis cannot be entirely excluded. Dedicated CT abdomen and pelvis study would be recommended for further evaluation. Dictated by: Dictated on workstation # [id number] Dict: 07/26/20 1639 Trans: 07/26/20 1649 [id number] Interpreted by: VENANCIO THOMAS MD Electronically signed by: VENANCIO THOMAS MD 07/26/20 1649 Diagonstic Imaging: Xray Plain Films/CT/US/NM/MRI: chest Comments NAME: GALO WOLF [facility] REC#: [id number] PT STATUS: REG ER : 1950 PHYSICIAN: RACHEL PEÑA MD ADMIT DATE: 07/26/20/ER Signed Date of Exam:07/26/20 CHEST 1 VIEW, AP/PA ONLY INDICATION: Sepsis. Frontal view chest is compared to exam from the 4th. The lungs are clear. The heart and vascularity are normal. There are no pleural effusions. IMPRESSION: Negative chest. Dictated by: Dictated on workstation # [id number] Dict: 07/26/20 1317 Trans: 07/26/20 1332 [facility] [id number] Interpreted by: JOHN HALE MD Electronically signed by: JOHN HALE MD 07/26/20 1332 Reviewed: Reviewed by Me Departure Communication (Admissions) Time/Spoke to Admitting Phy: 14:45 Dr. Romero Time/Spoke to Consulting Phy: 14:48 Dr. Azar Impression Primary Impression: 2019 novel coronavirus disease (COVID-19) Additional Impressions: Hypoxia Decreased oral intake Weakness Bladder cancer Qualified Codes: C67.9 - Malignant neoplasm of bladder, unspecified Diarrhea Qualified Codes: R19.7 - Diarrhea, unspecified Disposition: 09 ADMITTED INPATIENT Condition: Stable Admissions Decision to Admit Reason: Admit from ER (General) Decision to Admit/Date: Jul 26, 2020 Time/Decision to Admit Time: 14:40 Departure-Patient Inst. Referrals: JN OLEA MD (PCP/Family) Primary Care Physician RACHEL PEÑA MD Jul 26, 2020 14:54
[2020-07-26 15:09] LABS: FIBRIN DEGRADATION PRODUCTS 4.8 UG/ML (0.00-0.49)
[2020-07-26] MEDS ORDERED: HOLD METFORMIN - RECEIVED CONTRAST 20 ML VIAL IV SCH (16:00)
[2020-07-26] MEDS ORDERED: IOHEXOL 350 MG/ML 100 ML (OMNIPAQUE 350) VIAL IV ONE (16:00)
[2020-07-26] MEDS ORDERED: NS 100 ML (IVPB) BAG IV ONE (16:00)
--- NOTE | 2020-07-26 16:00 | NUR ---
WATER TO PT AT THIS TIME. PT DRINKS FROM STRAW WITHOUT DIFFICULTY. PT REPORTS NO NEW NEEDS AT THIS TIME. PT INFORMED OF PROGRESS TO ADMISSION.
--- NOTE | 2020-07-26 16:50 | Diagnostic Imaging Report ---
PROCEDURE: CT angiography of the chest with contrast. TECHNIQUE: Multiple contiguous axial images were obtained through the chest after uneventful bolus administration of intravenous contrast. 3D reconstructed CTA MIP acquisitions were also performed. Auto Exposure Controls were utilized during the CT exam to meet ALARA standards for radiation dose reduction. INDICATION: Shortness of breath and possible pulmonary embolism. COMPARISON: Correlation is made with prior CT from 03/06/2020. FINDINGS: Evaluation of the pulmonary arterial system is without evidence of thromboembolism. No definite filling defect is seen within central, lobar or segmental branches. The thoracic aorta is calcified but non-aneurysmal. No dissection is identified. There is trace pericardial fluid. There is trace bilateral pleural effusions. Parenchymal evaluation does show centrilobular emphysematous changes throughout both lungs. Right hemidiaphragm is elevated. There are some interstitial changes in both bases. There is also some infiltrate or atelectasis in the left base. Upper abdomen does show development of some perihepatic and perisplenic ascites. This was not present on prior CT. There appears to be some stranding in the mesentery and omentum. Hepatic low density is noted consistent with a cyst. A fat-containing lesion in the left latissimus dorsi muscle is again noted. IMPRESSION: 1. No evidence of pulmonary embolism or thoracic aortic dissection. 2. Pericardial and small bilateral pleural effusions. 3. Centrilobular emphysematous changes. There is some minimal infiltrate or atelectasis at both bases. 4. Development of upper abdominal ascites. There is also some stranding in the omentum and mesentery. Peritoneal carcinomatosis cannot be entirely excluded. Dedicated CT abdomen and pelvis study would be recommended for further evaluation. Dictated by: Dictated on workstation # [id number]
--- NOTE | 2020-07-26 17:00 | NUR ---
PT ABLE TO TRANSFER SELF FROM ED COT TO WC WITHUT DIFFICULTY.
--- NOTE | 2020-07-26 17:10 | NUR ---
GALO WOLF admitted to room 430-1, with an admitting diagnosis of Covid 19, hypoxia, hypovolemia, and weakness, on 07/26/20 from [facility] in [place] via wheelchair, accompanied by staff.GALO WOLF introduced to surroundings, call light, bed controls, phone, TV, temperature control, lights, meal times, smoking policy, visitor policy, side rail policy, bathrooms and showers. Patient Rights given to patient in the handbook. GALO WOLF verbalizes understanding that [facility] is not responsible for the loss or damage to any personal effects or valuables that are kept in the patients possession during their hospitalization.
[2020-07-26 17:25] VITALS: BP_SYST 101; BP_SYST 119; BP_DIAS 67; BP_DIAS 77
[2020-07-26] MEDS ORDERED: ENOXAPARIN 40 MG/0.4 ML (LOVENOX) SYR ONE (18:05)
[2020-07-26] MEDS: ENOXAPARIN 40 MG/0.4 ML (LOVENOX) SYR SQ SCH (18:12)
[2020-07-26] MEDS: LACTATED RINGERS 1,000 ML IV SCH (18:12)
[2020-07-26 20:43] VITALS: BP 105/64
[2020-07-26] MEDS ORDERED: ONDANSETRON 4 MG/2 ML (SDV) Z0FRAN IV PRN (20:45)
[2020-07-26] MEDS ORDERED: ACETAMINOPHEN 500 MG TAB (TYLENOL) PO PRN (20:45)
[2020-07-26 21:30] VITALS: BP 105/64
[2020-07-26] MEDS ORDERED: RT-ALBUTEROL INHALER HFA (VENTOLIN HFA) 18 GM IH PRN (21:45)
[2020-07-26 23:54] VITALS: BP 110/65
[2020-07-27] MEDS: LACTATED RINGERS 1,000 ML IV SCH ×3 (03:04→18:42)
[2020-07-27 03:44] VITALS: BP 117/67
[2020-07-27] MEDS ORDERED: FLU QUAD HIGH DOSE 240 MCG/0.7 ML 2020-21 (FLUZONE) IM ONE (07:15)
[2020-07-27] MEDS: ADVAIR HFA 115/21 MCG INHALER 8 GM IH SCH ×3 (07:20→20:11)
[2020-07-27] MEDS: RT-ALBUTEROL INHALER HFA (VENTOLIN HFA) 18 GM IH SCH ×4 (07:20→19:59)
[2020-07-27 08:00] VITALS: BP 115/76
[2020-07-27] MEDS ORDERED: RT-ALBUTEROL SULF 2.5 MG/3 ML PRE-MIX VIAL INH PRN (08:45)
[2020-07-27] MEDS ORDERED: HYOSCYAMINE 0.125 MG (LEVSIN) TAB PO PRN (08:45)
[2020-07-27] MEDS: amLODIPine 10 MG (NORVASC) TAB PO SCH (08:57)
[2020-07-27] MEDS: FAMOTIDINE 20 MG (PEPCID) TABLET PO SCH (08:57)
[2020-07-27] MEDS: lisINopril 40 MG (PRINIVIL) TABLET PO SCH ×2 (08:57→09:03)
--- NOTE | 2020-07-27 09:58 | History & Physical-Hospitalist ---
History of Present Illness HPI/Chief Complaint This is a 69-year-old white male who is known to be Covid positive. He was recently diagnosed on 07/13/2020 of this fall with symptoms beginning July 12. The patient had been recovering slowly with requirements of oxygen from an oxygen concentrator that he had borrowed from a friend. He has been unable to eat very well and is continued to have shortness of breath. In addition he notes that he is having increased abdominal girth and swelling of his legs. 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 The patient did have excision of a large bladder tumor in March of this year and has been undergoing mitomycin (sp?) treatments. The patient had noted some swelling for the last month or 2. CT in March showed no evidence of invasion beyond the bladder and the pathology report showed no evidence of invasion of the bladder tumor into the lamina propria. Source: patient, old records Exam Limitations: no limitations Date Seen 07/27/20 Time Seen by a Provider: 09:30 Attending Physician Yanira Romero MD PCP Kj Krueger MD Referring Physician Date of Admission Jul 26, 2020 at 14:51 Home Medications & Allergies Home Medications Reviewed patient Home Medication Reconciliation performed by pharmacy medication reconciliations systems protection technician and/or nursing. Patients Allergies have been reviewed. Allergies Allergies Coded Allergies No Known Drug Allergies (Unverified04/01/20) Past Jbufrsg-Kegnpn-Cxyuvb Hx Past Med/Social Hx: Reviewed Nursing Past Med/Soc Hx Patient Social History Marrital Status: Employed/Student: retired Alcohol Use: Rarely Uses Recreational Drug Use: No Smoking Status: Former Smoker Former Smoker, Quit: Apr 01, 2011 2nd Hand Smoke Exposure: No Recent Foreign Travel: No Contact w/other who traveled: No Recent Hopitalizations: No Recent Infectious Disease Expo: No Immunizations Up To Date Date of Pneumonia Vaccine: Jun 12, 2019 Seasonal Allergies Seasonal Allergies: No Past Medical History Surgeries: Bladder Surgery Currently Using CPAP: No Currently Using BIPAP: No Cardiac: Hypertension Gastrointestinal: Gastroesophageal Reflux Musculoskeletal: Arthritis, Gout Cancer: Bladder Did You Recieve Any Treatments: Yes What Type of Treatment Did You: Chemotherapy, Surgical Intervention History of Blood Disorders: No Review of Systems Constitutional: see HPI EENTM: no symptoms reported Respiratory: dyspnea on exertion Gastrointestinal: diarrhea, loss of appetite Genitourinary: decreased output, hesitancy, incontinence Skin: no symptoms reported Psychiatric/Neurological: No Symptoms Reported Physical Exam Physical Exam Vital Signs Vital Signs - First Documented 07/26/20 21:30 FiO2 32 Capillary Refill : Less Than 3 Seconds Height, Weight, BMI Height: '" Weight: lbs. oz. kg; 26.82 BMI Method: General Appearance: No Apparent Distress, WD/WN HEENT: TMs Normal, Normal ENT Inspection, Pharynx Normal Neck: Normal Inspection, Non Tender, Supple Respiratory: Lungs Clear, Normal Breath Sounds, No Accessory Muscle Use, No Respiratory Distress, Decreased Breath Sounds Cardiovascular: Regular Rate, Rhythm, No Gallop, No Murmur Gastrointestinal: Distended, Other (Fluid wave) Rectal: Deferred Extremity: Pedal Edema Neurologic/Psychiatric: Alert, Oriented x3, No Motor/Sensory Deficits, Normal Mood/Affect, pitch flaker II-XII Norm as Tested Skin: Normal Color, Warm/Dry Results Results/Procedures Labs Laboratory Tests 07/26/20 12:30 07/26/20 13:14 07/27/20 08:20 Patient resulted labs reviewed. Imaging: Reviewed Imaging Report Assessment/Plan Admission Diagnosis Shortness of breath Covid positive-07/14/2020- will d/c isolation- discussed with Rubén- TWAN Ascites possible carcinomatosis probable secondary to bladder cancer Elevated liver function tests Plan to consult Dr. Gloria, consider paracentesis for further evaluation, bone scan for elevated alk phos - consult DR. Thomason Admission Status: Inpatient Order (span 2 midnights) Reason for Inpatient Admission: Covid positive requiring further work-up for possible carcinomatosis Clinical Quality Measures DVT/VTE Risk/Contraindication: Risk Factor Score Per Nursin RFS Level Per Nursing on Admit: 4+=Very High YANIRA ROMERO MD Jul 27, 2020 09:58
[2020-07-27 10:03] LABS: ALBUMIN 1.4 GM/DL (3.2-4.5); CHLORIDE 106 MMOL/L (98-107); POTASSIUM 5.3 MMOL/L (3.6-5.0); SODIUM 134 MMOL/L (135-145)
[2020-07-27 10:04] LABS: BASOPHILS % (AUTO) 0 % (0-10); EOSINOPHILS % (AUTO) 1 % (0-10); HEMATOCRIT 48 % (40-54); HEMOGLOBIN 16.5 g/dL (13.3-17.7); LYMPHOCYTES % (AUTO) 14 % (12-44); MEAN CORPUSCULAR HEMOGLOBIN 30 pg (25-34); MEAN CORPUSCULAR HGB CONC 34 g/dL (32-36); MEAN CORPUSCULAR VOLUME 87 fL (80-99); MEAN PLATELET VOLUME 12.7 fL (9.0-12.2); MONOCYTES # (AUTO) 0.6 10^3/uL (0.0-1.0); MONOCYTES % (AUTO) 9 % (0-12); NEUTROPHILS # (AUTO) 5.3 10^3/uL (1.8-7.8); NEUTROPHILS % (AUTO) 76 % (42-75); PLATELET COUNT 239 10^3/uL (130-400); WHITE BLOOD COUNT 6.9 10^3/uL (4.3-11.0)
[2020-07-27 10:05] LABS: CALCIUM 7.6 MG/DL (8.5-10.1)
[2020-07-27 10:06] LABS: GLUCOSE 99 MG/DL (70-105); TOTAL PROTEIN 4.6 GM/DL (6.4-8.2)
[2020-07-27 10:07] LABS: BILIRUBIN,TOTAL 0.6 MG/DL (0.1-1.0); CARBON DIOXIDE 15 MMOL/L (21-32)
[2020-07-27 10:09] LABS: ALKALINE PHOSPHATASE 920 U/L (40-136); CREATININE SERUM 0.84 MG/DL (0.60-1.30); GFR ESTIMATED > 60
[2020-07-27 10:10] LABS: BUN/CREATININE RATIO 37
[2020-07-27 10:12] LABS: ALANINE AMINOTRANSFERASE 43 U/L (0-55)
--- NOTE | 2020-07-27 11:00 | NUR ---
Spoke with Dr. Romero she stated that the patient could be put on standard precautions because he had tested positive on 07/13 therefore he no longer needs precautionary measures. Patient moved to 424. Orders placed at this time.
--- NOTE | 2020-07-27 11:02 | Consultation - Surgery ---
KIRAN HOWE MED STUDENT 07/27/20 1102: History of Present Illness History of Present Illness Patient Consulted On(santino/time) 07/27/20 10:54 Date Seen by Provider: Jul 27, 2020 Time Seen by Provider: 10:45 History of Present Illness Fausto Dowling is a YO male with hx of bladder cancer being treated with BCG. Surgery consulted for paracentesis for 2 weeks of abdominal distension. Allergies and Home Medications Allergies Coded Allergies: No Known Drug Allergies (Unverified , 04/01/20) Home Medications Albuterol Sulfate 1 Puff Puff, 2 PUFF INH Q4H PRN for WHEEZING, (Reported) 1 PUFF = 90 MCG Amlodipine Besylate 10 Mg Tablet, 10 MG PO DAILY, (Reported) Famotidine 20 Mg Tablet, 20 MG PO DAILY, (Reported) Fluticasone/Salmeterol 1 Each Blst.w.dev, 1 EACH IH BID, (Reported) Hyoscyamine Sulfate 0.125 Mg Tablet, 1-2 TAB PO Q4H Prescribed by: MARIA C ARRIAGA on 04/02/20 1136 Lisinopril 40 Mg Tablet, 40 MG PO DAILY, (Reported) Phenazopyridine HCl 200 Mg Tablet, 1 TAB PO TID Prescribed by: MARIA C ARRIAGA on 04/02/20 1136 Sulfamethoxazole/Trimethoprim 1 Each Tablet, 1 EACH PO BID Prescribed by: MARIA C ARRIAGA on 04/02/20 1136 Past Spzqwvi-Lltklx-Ifwwmy Hx Patient Social History Alcohol Use: Rarely Uses Recreational Drug Use: No Smoking Status: Former Smoker Former Smoker, Quit: Apr 01, 2011 2nd Hand Smoke Exposure: No Recent Foreign Travel: No Contact w/Someone Who Travel: No Recent Infectious Disease Expo: No Recent Hopitalizations: No Immunizations Up To Date Date of Pneumonia Vaccine: Jun 12, 2019 Seasonal Allergies Seasonal Allergies: No Surgeries History of Surgeries: Yes Surgeries: Bladder Surgery Respiratory History of Respiratory Disorde: Yes Respiratory Disorders: COPD, Emphysema Cardiovascular History of Cardiac Disorders: Yes Cardiac Disorders: Hypertension Neurological History of Neurological Disord: No Genitourinary History of Genitourinary Disor: Yes (bladder tumor) Gastrointestinal History of Gastrointestinal Di: Yes Gastrointestinal Disorders: Gastroesophageal Reflux Musculoskeletal History of Musculoskeletal Dis: Yes Musculoskeletal Disorders: Arthritis, Gout Endocrine History of Endocrine Disorders: No HEENT History of HEENT Disorders: No Cancer History of Cancer: Yes Cancer: Bladder Psychosocial History of Psychiatric Problem: No Integumentary History of Skin or Integumenta: No Blood Transfusions History of Blood Disorders: No Review of Systems-General Constitutional: No chills, No fever EENTM: No blurred vision, No double vision Respiratory: No cough; short of breath Cardiovascular: No chest pain, No palpitations Gastrointestinal: No dysphagia, No hematemesis Genitourinary: No frequency, No hematuria Musculoskeletal: No back pain, No joint pain Skin: No change in color, No change in hair/nails Psychiatric/Neurological: Denies Headache, Denies Numbness All Other Systems Reviewed Negative Unless Noted: Yes Physical Exam-General Problems Physical Exam Vital Signs Vital Signs - First Documented 07/26/20 21:30 FiO2 32 Capillary Refill : Less Than 3 Seconds General Appearance: WD/WN, no apparent distress Eyes: Bilateral Eye Normal Inspection, Bilateral Eye EOMI HEENT: PERRL/EOMI, pharynx normal Neck: supple, normal inspection Respiratory: chest non-tender, no respiratory distress, no accessory muscle use Cardiovascular: regular rate, rhythm, no edema Gastrointestinal: soft, other (distended) Rectal: deferred Extremities: normal inspection, normal capillary refill Neurologic/Psychiatric: no motor/sensory deficits, alert, normal mood/affect, oriented x 3 Skin: normal color, warm/dry Data Review Labs Laboratory Tests 07/26/20 12:30: White Blood Count 6.3, Red Blood Count 5.59H, Hemoglobin 16.7, Hematocrit 50, Mean Corpuscular Volume 89, Mean Corpuscular Hemoglobin 30, Mean Corpuscular Hemoglobin Concent 33, Red Cell Distribution Width 17.4H, Platelet Count 245, Mean Platelet Volume 12.1, Immature Granulocyte % (Auto) 1, Neutrophils (%) (Auto) 70, Lymphocytes (%) (Auto) 19, Monocytes (%) (Auto) 10, Eosinophils (%) (Auto) 0, Basophils (%) (Auto) 1, Neutrophils # (Auto) 4.4, Lymphocytes # (Auto) 1.2, Monocytes # (Auto) 0.6, Eosinophils # (Auto) 0.0, Basophils # (Auto) 0.0, Immature Granulocyte # (Auto) 0.0 07/26/20 13:14: Prothrombin Time 13.2, INR Comment 1.0, Activated Partial Thromboplast Time 30, D-Dimer 4.80H, Sodium Level 136, Potassium Level 3.8, Chloride Level 103, Carbon Dioxide Level 23, Anion Gap 10, Blood Urea Nitrogen 27H, Creatinine 0.90, Estimat Glomerular Filtration Rate > 60, BUN/Creatinine Ratio 30, Glucose Level 78, Lactic Acid Level 1.09, Calcium Level 8.0L, Corrected Calcium 10.0, Total Bilirubin 0.7, Aspartate Amino Transf (AST/SGOT) 89H, Alanine Aminotransferase (ALT/SGPT) 41, Alkaline Phosphatase 970H, Lactate Dehydrogenase 279H, C-Reactive Protein High Sensitivity 1.30H, Total Protein 4.1L, Albumin 1.5L, Procalcitonin 0.19H 07/26/20 13:34: Urine Color DARK YELLOW, Urine Clarity CLEAR, Urine pH 6.0, Urine Specific [place] >=1.030, Urine Protein 2+H, Urine Glucose (UA) NEGATIVE, Urine Ketones NEGATIVE, Urine Nitrite NEGATIVE, Urine Bilirubin 2+H, Urine Urobilinogen 0.2, Urine Leukocyte Esterase NEGATIVE, Urine RBC (Auto) TRACE-I, Urine RBC NONE, Urine WBC NONE, Urine Crystals NONE, Urine Bacteria TRACE, Urine Casts NONE, Urine Mucus NEGATIVE, Urine Culture Indicated NO 07/27/20 08:20: White Blood Count 6.9, Red Blood Count 5.50, Hemoglobin 16.5, Hematocrit 48, Mean Corpuscular Volume 87, Mean Corpuscular Hemoglobin 30, Mean Corpuscular Hemoglobin Concent 34, Red Cell Distribution Width 17.2H, Platelet Count 239, Mean Platelet Volume 12.7H, Immature Granulocyte % (Auto) 1, Neutrophils (%) (A uto) 76H, Lymphocytes (%) (Auto) 14, Monocytes (%) (Auto) 9, Eosinophils (%) (Auto) 1, Basophils (%) (Auto) 0, Neutrophils # (Auto) 5.3, Lymphocytes # (Auto) 1.0, Monocytes # (Auto) 0.6, Eosinophils # (Auto) 0.0, Basophils # (Auto) 0.0, Immature Granulocyte # (Auto) 0.0, Sodium Level 134L, Potassium Level 5.3H, Chloride Level 106, Carbon Dioxide Level 15L, Anion Gap 13, Blood Urea Nitrogen 31H, Creatinine 0.84, Estimat Glomerular Filtration Rate > 60, BUN/Creatinine Ratio 37, Glucose Level 99, Calcium Level 7.6L, Corrected Calcium 9.7, Total Bilirubin 0.6, Aspartate Amino Transf (AST/SGOT) 90H, Alanine Aminotransferase (ALT/SGPT) 43, Alkaline Phosphatase 920H, Total Protein 4.6L, Albumin 1.4L Assessment/Plan Assessment/Plan Assessment/Plan bladder cancer ascites ultrasound with possible paracentesis Clinical Quality Measures DVT/VTE Risk/Contraindication: Risk Factor Score Per Nursin RFS Level Per Nursing on Admit: 4+=Very High FELIPA THOMPSON DO 07/27/201950: History of Present Illness History of Present Illness History of Present Illness Consult requested by Dr. Romero for paracentesis for abdominal ascites Patient is a 69-year-old male who over the last couple weeks has increased abdominal distention. Sometimes cause a little bit of slight difficulty breathing. Patient also with swelling into the bilateral lower extremities. Patient recently Covid positive but is out of isolation now. Patient had CT scan of the chest which demonstrated abdominal ascites and questionable carcinomatosis. Patient's never had EGD or colonoscopy he states. Denies any bowel issues except having some diarrhea more recently. Patient also with recent diagnosis of bladder cancer treated with BCG. Allergies and Home Medications Allergies Coded Allergies: No Known Drug Allergies (Unverified , 04/01/20) Home Medications Albuterol Sulfate 1 Puff Puff, 2 PUFF INH Q4H PRN for WHEEZING, (Reported) 1 PUFF = 90 MCG Amlodipine Besylate 10 Mg Tablet, 10 MG PO DAILY, (Reported) Famotidine 20 Mg Tablet, 20 MG PO DAILY, (Reported) Fluticasone/Salmeterol 1 Each Blst.w.dev, 1 EACH IH BID, (Reported) Hyoscyamine Sulfate 0.125 Mg Tablet, 1-2 TAB PO Q4H Prescribed by: MARIA C ARRIAGA on 04/02/20 1136 Lisinopril 40 Mg Tablet, 40 MG PO DAILY, (Reported) Phenazopyridine HCl 200 Mg Tablet, 1 TAB PO TID Prescribed by: MARIA C ARRIAGA on 04/02/20 1136 Sulfamethoxazole/Trimethoprim 1 Each Tablet, 1 EACH PO BID Prescribed by: MARIA C ARRIAGA on 04/02/20 1136 Patient Home Medication List Home Medication List Reviewed: Yes Past Jppsttr-Guzzuh-Dlamch Hx Reviewed Nursing Assessment Reviewed/Agree w Nursing PMH: Yes Family Medical History Significant Family History: No Pertinent Family Hx Review of Systems-General Constitutional: No chills, No fever EENTM: No blurred vision, No double vision Respiratory: No cough; short of breath Cardiovascular: No chest pain, No palpitations Gastrointestinal: diarrhea; No dysphagia, No hematemesis, No nausea, No vomiting Genitourinary: No frequency, No hematuria Musculoskeletal: No back pain, No joint pain Skin: No change in color, No change in hair/nails Psychiatric/Neurological: Denies Headache, Denies Numbness All Other Systems Reviewed Negative Unless Noted: Yes (Negative excepted noted.) Physical Exam-General Problems Physical Exam General Appearance: WD/WN, no apparent distress HEENT: PERRL/EOMI, normal ENT inspection Neck: supple, normal inspection Respiratory: chest non-tender, no respiratory distress, no accessory muscle use Cardiovascular: regular rate, rhythm, no JVD Gastrointestinal: soft, distended, other (distended with fluid wave no significant tenderness on palpation) Rectal: deferred Back: no CVA tenderness, no vertebral tenderness Extremities: No calf tenderness; swelling 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 Patient understands risk and benefits and wishes to proceed. Supervisory-Addendum Brief Verification & Attestation Participated in pt care: history, MDM, physical Personally performed: exam, history, MDM, supervision of care Care discussed with: Medical Student Procedures: n/a Results interpretation: Verified all documentation Verification and Attestation of Medical Student E/M Service A medical student performed and documented this service in my presence. I reviewed and verified all information documented by the medical student and made modifications to such information, when appropriate. I personally performed the physical exam and medical decision making. Felipa Thompson, Jul 27, 2020,19:56 KIRAN HOWE MED STUDENT Jul 27, 2020 11:02 FELIPA THOMPSON DO Jul 27, 2020 19:51
[2020-07-27] MEDS ORDERED: LIDOCAINE 1% INJ 20 ML 20 ML VIAL ONE (11:49)
[2020-07-27 12:00] VITALS: BP 121/90
[2020-07-27] MEDS: CHOLESTYRAMINE 4 GM (QUESTRAN LITE, PREVALITE) PKT PO PRN (13:35)
--- NOTE | 2020-07-27 13:50 | NUR ---
Paracentesis performed at bedside by Dr. Prieto at this time. Patient tolerated procedure well.
[2020-07-27 14:07] LABS: GLUCOSE,BODY FLUID 101 MG/DL; TOTAL PROTEIN,BODY FLUID < 0.8 G/DL
[2020-07-27] MEDS ORDERED: ALBUMIN 25% 25 GM/100 ML 100 ML IV ONE (15:30)
[2020-07-27 15:34] VITALS: BP 108/74
[2020-07-27] MEDS ORDERED: IOHEXOL 350 MG/ML 100 ML (OMNIPAQUE 350) VIAL IV ONE (16:45)
[2020-07-27] MEDS ORDERED: NS 100 ML (IVPB) BAG IV ONE (16:45)
[2020-07-27] MEDS ORDERED: HOLD METFORMIN - RECEIVED CONTRAST 20 ML VIAL IV SCH (16:45)
[2020-07-27 16:50] LABS: BODY FLUID SOURCE PERITON
[2020-07-27 16:51] LABS: BODY FLUID APPEARENCE CLEAR; BODY FLUID COLOR PALE YELLOW; BODY FLUID RBC COUNT 30 /uL; BODY FLUID WBC TOTAL COUNT 29 /uL
[2020-07-27 17:10] LABS: BF OTHER CELLS 30 %; LYMPHOCYTES,BODY FLUID 19 %
--- NOTE | 2020-07-27 18:25 | NUR ---
Paracentesis tubing removed at this time. Patient had a total of 6400mL of peritoneal fluid removed.
[2020-07-27] MEDS: ENOXAPARIN 40 MG/0.4 ML (LOVENOX) SYR SQ SCH (18:38)
--- NOTE | 2020-07-27 18:59 | Diagnostic Imaging Report ---
PROCEDURE: CT abdomen and pelvis with contrast. TECHNIQUE: Multiple contiguous axial images were obtained through the abdomen and pelvis after administration of intravenous contrast. Auto Exposure Controls were utilized during the CT exam to meet ALARA standards for radiation dose reduction. All CT scans use one or more of the following dose optimizing techniques: automated exposure control, MA and/or KvP adjustment based on patient size and exam type or iterative reconstruction. INDICATION: Ascites, possible carcinoma. History of bladder cancer. CORRELATION STUDY: 03/06/2020. FINDINGS: Advanced emphysematous changes about the lung bases. Small pleural effusions. There is some consolidation in the medial left lower lobe. There is presence of a small amount of free air particularly in the upper abdomen anteriorly. There is presence of an apparent percutaneous catheter in the right mid abdomen. Catheter courses just below the right hepatic lobe. There is presence of a currently small volume abdominal and pelvic ascites. There is a 3 cm cystic mass in right lobe of the liver, unchanged. There are asymmetric areas of vascular enhancement scattered within the liver. Largest at the inferior right hepatic lobe may reflect cavernous hemangioma. There is also noted asymmetric vascular enhancement of the right lobe of the liver which happens to be in close proximity to the catheter. No contrast extravasation. Gallbladder is present and contains some high density. May be some sludge or debris versus stones. The catheter tubing is also noted to be below the gallbladder. Spleen, pancreas and adrenal glands are unchanged. Multiple low-density masses of the kidneys favoring probable cysts. No hydronephrosis. Extensive colonic diverticulosis is noted. Inflammatory changes of the gastrointestinal tract would be difficult to exclude given the ascites. Urinary bladder contains high density contrast. Prostate gland unremarkable. Moderate aortoiliac wall calcification. IMPRESSION: 1. There is presence of free air in the upper abdomen. This appears changed from examination one day earlier. There is presence of a percutaneous catheter which may be attributed to this. Possibility of visceral perforation, however, is not excluded. 2. Small volume abdominal and pelvic ascites. 3. Extensive colonic diverticulosis. Definitive inflammation is not suggested, however, could easily go undetected given the generalized ascites. 4. Asymmetric areas of nodular vascular enhancement. These findings correspond to previous noted cavernous hemangioma. Other lesions are somewhat indeterminate. Early vascular metastasis is considered less likely but not excluded. Follow-up imaging recommended. 5. High density material in the gallbladder, likely sludge and debris. 6. Basilar pneumonia. Report was called and faxed to patient's nurse at 6:52 p.m., by yolanda. Dictated by: Dictated on workstation # [id number]
[2020-07-27 19:49] VITALS: BP 108/78
[2020-07-27] MEDS ORDERED: ADVAIR HFA 115/21 MCG INHALER 8 GM IH SCH (20:00)
[2020-07-27 23:54] VITALS: BP 91/54
[2020-07-28] VITALS (7 sets, daily range): BP systolic 98–130; BP diastolic 66–86
[2020-07-28 06:25] LABS: BASOPHILS % (AUTO) 0 % (0-10); EOSINOPHILS % (AUTO) 0 % (0-10); HEMATOCRIT 46 % (40-54); HEMOGLOBIN 15.2 g/dL (13.3-17.7); LYMPHOCYTES # (AUTO) 1.2 10^3/uL (1.0-4.0); LYMPHOCYTES % (AUTO) 15 % (12-44); MEAN CORPUSCULAR HEMOGLOBIN 30 pg (25-34); MEAN CORPUSCULAR HGB CONC 33 g/dL (32-36); MEAN CORPUSCULAR VOLUME 91 fL (80-99); MEAN PLATELET VOLUME 12.6 fL (9.0-12.2); MONOCYTES # (AUTO) 0.8 10^3/uL (0.0-1.0); MONOCYTES % (AUTO) 10 % (0-12); NEUTROPHILS % (AUTO) 74 % (42-75); PLATELET COUNT 261 10^3/uL (130-400); WHITE BLOOD COUNT 8.1 10^3/uL (4.3-11.0)
[2020-07-28 06:37] LABS: ALBUMIN 1.7 GM/DL (3.2-4.5); CHLORIDE 106 MMOL/L (98-107); POTASSIUM 4.2 MMOL/L (3.6-5.0); SODIUM 135 MMOL/L (135-145)
[2020-07-28 06:38] LABS: CALCIUM 7.5 MG/DL (8.5-10.1)
[2020-07-28 06:39] LABS: GLUCOSE 86 MG/DL (70-105); TOTAL PROTEIN 4.1 GM/DL (6.4-8.2)
[2020-07-28 06:40] LABS: CARBON DIOXIDE 18 MMOL/L (21-32)
[2020-07-28 06:41] LABS: BILIRUBIN,TOTAL 0.7 MG/DL (0.1-1.0)
[2020-07-28 06:43] LABS: ALKALINE PHOSPHATASE 783 U/L (40-136); CREATININE SERUM 1.09 MG/DL (0.60-1.30); GFR ESTIMATED > 60
[2020-07-28 06:44] LABS: BUN/CREATININE RATIO 39
[2020-07-28 06:46] LABS: ALANINE AMINOTRANSFERASE 39 U/L (0-55)
[2020-07-28] MEDS: LACTATED RINGERS 1,000 ML IV SCH (08:13)
--- NOTE | 2020-07-28 08:23 | OPERATIVE REPORT ---
DATE OF SERVICE: 07/27/2020 PREOPERATIVE DIAGNOSIS: Symptomatic abdominal ascites. POSTOPERATIVE DIAGNOSIS: Symptomatic abdominal ascites. PROCEDURE: Ultrasound-guided paracentesis. SURGEON: Felipa Prieto DO ANESTHESIA: A 1% lidocaine 4 mL. COMPLICATIONS: None. INDICATIONS: The patient is a 69-year-old male with abdominal ascites causing him some shortness of breath, also concerned for carcinomatosis of the abdomen. The patient understands risks and benefits of having paracentesis performed and he wishes to proceed. Consent was signed in the chart. DESCRIPTION OF PROCEDURE: The patient was in the supine position. Ultrasound was used to isolate the largest pocket. The area was prepped and draped in sterile fashion. Local anesthetic was infiltrated. An #11 blade scalpel was used to make a small skin incision and [id number] needle and catheter were advanced until straw-colored fluid was withdrawn. The catheter was then advanced and the needle was removed. A total of 6 liters of fluid was withdrawn and then the catheter was removed and sterile bandage was applied. The patient tolerated procedure well without any complications. He was taken to recovery room in stable condition. Job ID: [id number] DocumentID: [id number] Dictated Date: 07/27/2020 20:15:23 Pipeliner Date: 07/28/2020 01:58:43 Dictated By: FELIPA PRIETO DO [facility]ITALHumphrey
[2020-07-28] MEDS: FAMOTIDINE 20 MG (PEPCID) TABLET PO SCH (08:48)
[2020-07-28] MEDS: lisINopril 40 MG (PRINIVIL) TABLET PO SCH (09:14)
[2020-07-28] MEDS: amLODIPine 10 MG (NORVASC) TAB PO SCH (09:14)
--- NOTE | 2020-07-28 09:41 | Progress Note - Surgery ---
KIRAN HOWE MED STUDENT 07/28/20 0941: Subjective Date Seen by a Provider: Jul 28, 2020 Time Seen by a Provider: 07:30 Subjective/Events-last exam Paracentesis done yesterday, 6.4 L of fluid draineed and peritoneal catheter removed last night. Pt feels that his distension is much improved today, but says it is not yet back to his baseline. Also notes improvement with his breathing. Focused Exam Lactate Level 07/26/20 13:14: Lactic Acid Level 1.09 Objective Exam Vital Signs Date Time Temp Pulse Resp B/P (MAP) Pulse Ox O2 Delivery O2 Flow Rate FiO2 07/28/20 08:00 36.2 83 18 103/72 (82) 92 Nasal Cannula 3.00 07/28/20 04:05 36.4 78 20 100/67 (78) 93 Nasal Cannula 3.00 07/28/20 00:44 36.1 73 20 98/66 (77) 93 Nasal Cannula 3.00 07/27/20 20:11 94 Nasal Cannula 1.50 07/27/20 20:10 Nasal Cannula 1.50 07/27/20 19:59 91 Nasal Cannula 1.50 07/27/20 19:49 36.3 82 18 108/78 (88) 93 Nasal Cannula 2.00 07/27/20 15:34 36.4 76 20 108/74 (85) 95 Nasal Cannula 2.00 07/27/20 14:48 Nasal Cannula 2.00 07/27/20 12:00 36.1 80 20 121/90 (100) 99 Nasal Cannula 3.00 07/27/20 11:03 Nasal Cannula 3.00 I & O 07/28/20 07:00 Intake Total 870 ml Balance 870 ml Capillary Refill : Less Than 3 Seconds General Appearance: No Apparent Distress, WD/WN HEENT: PERRL/EOMI, Normal ENT Inspection Neck: Normal Inspection, Supple Respiratory: Normal Breath Sounds, No Accessory Muscle Use, No Respiratory Distress Cardiovascular: Regular Rate, Rhythm, No Murmur Gastrointestinal: soft, distended (improved from yesterday), other (catheter removed with bandage over site, no tenderness) Extremity: Normal Inspection, Pedal Edema Neurologic/Psychiatric: Alert, Oriented x3, No Motor/Sensory Deficits, Normal Mood/Affect Skin: Normal Color, Warm/Dry Results Lab Laboratory Tests 07/27/20 12:45: Body Fluid Source PERITON, Body Fluid Color PALE YELLOW, Body Fluid Appearance CLEAR, Body Fluid WBC 29, Body Fluid RBC 30, Body Fluid Polynuclear WBCs 12, Body Fluid Mononuclear WBCs 39, Body Fluid Lymphocytes 19, Body Fluid Other Cells 30, Body Fluid Glucose 101, Body Fluid Total Protein < 0.8 07/28/20 05:33: White Blood Count 8.1, Red Blood Count 5.06, Hemoglobin 15.2, Hematocrit 46, Mean Corpuscular Volume 91, Mean Corpuscular Hemoglobin 30, Mean Corpuscular Hemoglobin Concent 33, Red Cell Distribution Width 17.7H, Platelet Count 261, Mean Platelet Volume 12.6H, Immature Granulocyte % (Auto) 1, Neutrophils (%) (Auto) 74, Lymphocytes (%) (Auto) 15, Monocytes (%) (Auto) 10, Eosinophils (%) (Auto) 0, Basophils (%) (Auto) 0, Neutrophils # (Auto) 6.0, Lymphocytes # (Auto) 1.2, Monocytes # (Auto) 0.8, Eosinophils # (Auto) 0.0, Basophils # (Auto) 0.0, Immature Granulocyte # (Auto) 0.1, Sodium Level 135, Potassium Level 4.2, Chloride Level 106, Carbon Dioxide Level 18L, Anion Gap 11, Blood Urea Nitrogen 43H, Creatinine 1.09, Estimat Glomerular Filtration Rate > 60, BUN/Creatinine Ratio 39, Glucose Level 86, Calcium Level 7.5L, Corrected Calcium 9.3, Total Bilirubin 0.7, Aspartate Amino Transf (AST/SGOT) 73H, Alanine Aminotransferase (ALT/SGPT) 39, Alkaline Phosphatase 783H, Total Protein 4.1L, Albumin 1.7L Microbiology 07/26/20 Urine Culture - Final, Complete 3 or more isolates 07/26/20 Blood Culture - Preliminary, Resulted No growth Assessment/Plan Assessment/Plan Assessment/Plan Bladder cancer Abdominal ascites causing shortness of breath Questionable carcinomatosis abdominal distension improved will sign off on pt Clinical Quality Measures DVT/VTE Risk/Contraindication: Risk Factor Score Per Nursin RFS Level Per Nursing on Admit: 4+=Very High FELIPA PRIETO DO 07/29/20 7964: Subjective Subjective/Events-last exam Patient states he is feeling better. He got a lot of fluid off yesterday and that the distention is significantly improved. His breathing has improved as well. He has no other complaints at this time. He denies any nausea vomiting fever sweats chills shortness of breath or chest pain. Objective Exam General Appearance: No Apparent Distress, WD/WN HEENT: PERRL/EOMI, Normal ENT Inspection Neck: Normal Inspection, Supple Respiratory: Chest Non Tender, No Accessory Muscle Use, No Respiratory Distress Cardiovascular: Regular Rate, Rhythm, No Murmur Gastrointestinal: soft, distended (Minimal), other (catheter removed with bandage over site, no tenderness) Extremity: Normal Inspection Neurologic/Psychiatric: Alert, Oriented x3, No Motor/Sensory Deficits, Normal Mood/Affect Skin: Normal Color, Warm/Dry Lymphatic: No Adenopathy Assessment/Plan Assessment/Plan Assessment/Plan Bladder cancer Abdominal ascites causing shortness of breath status post paracentesis Questionable carcinomatosis abdominal distension improved Patient has had fluid sent off for cytology will sign off on pt please call if needed Supervisory-Addendum Brief Verification & Attestation Participated in pt care: history, MDM, physical Personally performed: exam, history, MDM, supervision of care Care discussed with: Medical Student Procedures: n/a Results interpretation: Verified all documentation Verification and Attestation of Medical Student E/M Service A medical student performed and documented this service in my presence. I reviewed and verified all information documented by the medical student and made modifications to such information, when appropriate. I personally performed the physical exam and medical decision making. Felipa Prieto, Jul 28, 2020,15:57 KIRAN HOWE MED STUDENT Jul 28, 2020 09:41 FELIPA PRIETO DO Jul 29, 2020 15:57
[2020-07-28] MEDS ORDERED: CALC-781 PO (09:55)
[2020-07-28] MEDS ORDERED: CHOL10007 PO (09:55)
[2020-07-28] MEDS ORDERED: ASCO500T71 PO (09:55)
[2020-07-28] MEDS ORDERED: ASPI-1238 PO (09:55)
[2020-07-28] MEDS ORDERED: ZINC50TA58 PO (09:55)
[2020-07-28] MEDS ORDERED: FURO20TA4 PO (09:55)
--- NOTE | 2020-07-28 10:03 | NUR ---
SPOKE WITH THE PT, WENT THRU THE EXT MED HISTORY AND CALLED [facility] TO COMPLETE THE MED REC PT WAS ABLE TO NAME ALL HIS MEDICATIONS WELL WHEN/HOW HE TAKES EACH 07-16-2020 ADVAIR 250/50 #10/11- FILLED THRU [facility] PT HAS FILLED ATORVASTATIN IN JANUARY 2020 #90/90DS HOWEVER PT SAID HE HIS QUIT TAKING MEDICATIONS WERE CONTINUED BEFORE A MED REC WAS DONE OVER THE WEEKEND- THE FOLLOWING DIRECTIONS WERE UPDATED AND THE PHARMACIST WAS NOTIFIED: AMLODIPINE 10MG: THE DIRECTIONS THAT WERE CONTINUED WAS 1 TAB DAILY HOWEVER PT SAYS HE TAKES IT HS FAMOTIDINE 20MG- THE DIRECTIONS ON THE MED REC THAT WERE CONTINUED WERE 1 TAB DAILY HOWEVER PT TAKES 1 TAB BID. OTC MEDS: PEPCID ANTACID CHEWS PT IS TAKING THE FOLLOWING OTC MEDICATIONS DUE TO COVID DIAGNOSIS, BUT DID NOT TAKE THEM PRIOR: VIT D VIT C ZINC ASPIRIN 81MG
--- NOTE | 2020-07-28 10:16 | Progress Note - Urology ---
Progress Note-Urology Progress Notes/Assess & Plan Progress/Assessment & Plan ABDOMINAL PARACENTESIS DONE BY DR THOMPSON WITH 6 LITERS OF FLUID DRAINED. CT REVIEWED Final Diagnosis H/O CA BLADDER TEMI LOREDO MD Jul 28, 2020 10:16
--- NOTE | 2020-07-28 10:29 | CONSULTATION REPORT ---
DATE OF SERVICE: 07/27/2020 ATTENDING PHYSICIAN: Dr. Romero. SUMMARY: After reviewing the patient's record at the office in the hospital, this is a 69-year-old white man, who was initially referred to me back in the summer by Dr. Thomason because of a large mass in the bladder by CT. Rest of the CAT scan was negative. She was working him up for other reasons. He underwent a transurethral resection of the bladder tumor on 04/02/2020, came back superficial, no invasion. He was given six weekly instillations of mitomycin. At that time, he was kind complaining of bloating and gaining weight and his PCP was working on that. He was due for a followup cystoscopy on 07/30, but he has been admitted by Dr. Romero with ascites and positive COVID test. His is also having COVID and she is in the hospital. The patient denies any voiding symptoms. He does admit to abdominal distention. His alkaline phosphatase is elevated, which has been from before and he was seeing his PCP and Dr. Thomason for that. I reviewed the history and physical of Dr. Romero. IMPRESSION: 1. History of CA of the bladder superficial. 2. History of lung nodule. 3. Ascites. 4. Elevation of the alkaline phosphatase and the liver enzymes. RECOMMENDATIONS: 1. Bone scan. 2. CT scan of the abdomen and pelvis dedicated and we will manage accordingly. The plan was fully explained to the patient as well as Dr. Romero who concurs. 3. Abdominal paracentesis by the general surgeon. Job ID: [id number] DocumentID: [id number] Dictated Date: 07/28/2020 09:34:38 [employer]ist Date: 07/28/2020 10:29:35 Dictated By: TEMI LOREDO MD [facility]
--- NOTE | 2020-07-28 11:02 | Progress Note - Hospitalist ---
LON OCONNOR MED STUDENT 07/28/20 1102: Subjective HPI/CC On Admission Date Seen by Provider: Jul 28, 2020 Time Seen by Provider: 08:15 This is a 69-year-old white male who is known to be Covid positive. He was recently diagnosed on 07/13/2020 of this fall with symptoms beginning July 12. The patient had been recovering slowly with requirements of oxygen from an oxygen concentrator that he had borrowed from a friend. He has been unable to eat very well and is continued to have shortness of breath. In addition he notes that he is having increased abdominal girth and swelling of his legs. CT chest does not reflect any evidence of pneumonia consistent with Covid however it does show ascites with hepatic steatosis and changes consistent with carcinomatosis of the abdomen. The patient did have excision of a large bladder tumor in March of this year and has been undergoing mitomycin (sp?) treatments. The patient had noted some swelling for the last month or 2. CT in March showed no evidence of invasion beyond the bladder and the pathology report showed no evidence of invasion of the bladder tumor into the lamina propria. Subjective/Events-last exam Mr. Dowling reports he's less short of breath today. He reports that the paracentesis has helped improve his breathing immensely. Currently he denies chest pain, SOB, fever, chills, nausea, or vomiting. He does report some mild d iarrhea and abdominal swelling. He reports tolerating po intake well. He also reports feeling fatigued and more weak than usual. He denies having any pain. Review of Systems General: No Chills, No Night Sweats; Fatigue, Malaise, Appetite (decreased) HEENT: No Head Aches, No Visual Changes Pulmonary: No Dyspnea, No Cough Cardiovascular: No: Chest Pain, Palpitations, Lt Headedness Gastrointestinal: Diarrhea; No: Nausea, Vomiting, Abdominal Pain Genitourinary: No Dysuria, No Frequency Musculoskeletal: No: neck pain, back pain Neurological: No: Weakness, Numbness, Confusion Focused Exam Lactate Level 07/26/20 13:14: Lactic Acid Level 1.09 Objective Exam Vital Signs Vital Signs Date Time Temp Pulse Resp B/P (MAP) Pulse Ox O2 Delivery O2 Flow Rate FiO2 07/28/20 08:00 36.2 83 18 103/72 (82) 92 Nasal Cannula 3.00 07/26/20 21:30 32 Capillary Refill : Less Than 3 Seconds General Appearance: No Apparent Distress, Chronically ill HEENT: PERRL/EOMI, Pharynx Normal Neck: Full Range of Motion, Non Tender Respiratory: Chest Non Tender, Lungs Clear, No Accessory Muscle Use, No Respiratory Distress; No Crackles; Decreased Breath Sounds; No Rhonci, No Wheezing Cardiovascular: Regular Rate, Rhythm, Normal Peripheral Pulses Gastrointestinal: Normal Bowel Sounds, Non Tender, Distended (Mildly distended); No Guarding, No Rebound, No Tenderness Rectal: Deferred Back: Normal Inspection, No Vertebral Tenderness Extremity: Normal Capillary Refill, Normal Inspection, No Calf Tenderness, Pedal Edema (trace edema BLE) Neurologic/Psychiatric: Alert, Oriented x3, No Motor/Sensory Deficits, Normal Mood/Affect Skin: Normal Color, Warm/Dry, Ecchymosis (dorsal surface left hand) Lymphatic: No Adenopathy Results/Procedures Lab Laboratory Tests 07/28/20 05:33 Patient resulted labs reviewed. Imaging: Reviewed Imaging Report Assessment/Plan Assessment and Plan Assess & Plan/Chief Complaint COVID 19 Hypoxia Ascites- possible peritoneal carcinomatosis secondary to probable bladder cancer Markedly elevated alkaline phosphatase Elevated LFT's Bilateral pleural effusions Decreased oral intake Weakness H/O bladder tumor excision- March 2020 S/P mitomycin treatment COPD 1. Continue oxygen therapy 2. Gen surg following-paracentesis already performed 3. Urology following 4. Continue decadron 5. Lovenox DVT prophylaxis 6. Followup with peritoneal fluid assays when available 7. Consider oncology consult 8. Consider bone scan 9. Given his history of a bladder tumor excision, and now his presentation of ascites, SOB, diarrhea, anorexia, bilateral leg swelling, nausea, and a markedly elevated alk phos, full workup should be done to rule out peritoneal carcinomatosis. Clinical Quality Measures DVT/VTE Risk/Contraindication: Risk Factor Score Per Nursin RFS Level Per Nursing on Admit: 4+=Very High KAYLEE PERKINS DO 07/29/20 0444: Subjective Subjective/Events-last exam Having some loose stools On [address] Prieto took off 6 L of fluid during paracentesis CT scan and angiogram show no evidence of pulmonary embolism Bladder tumor was excised in March Holding BP medication due to mild hypotension due to paracentesis Review of Systems General: Fatigue, Malaise Gastrointestinal: Abdominal Pain Objective Exam General Appearance: No Apparent Distress, WD/WN, Chronically ill Respiratory: Lungs Clear Cardiovascular: Regular Rate, Rhythm Gastrointestinal: Distended (Mildly distended), Other (fluid wave) Neurologic/Psychiatric: Alert, Oriented x3, No Motor/Sensory Deficits, Normal Mood/Affect Assessment/Plan Assessment and Plan Assess & Plan/Chief Complaint Complex case monitor closely Await pathology from ascites Supervisory-Addendum Brief Verification & Attestation Participated in pt care: history, MDM, physical Personally performed: exam, history, MDM, supervision of care Care discussed with: Medical Student Procedures: n/a Results interpretation: Verified all documentation Verification and Attestation of Medical Student E/M Service A medical student performed and documented this service in my presence. I reviewed and verified all information documented by the medical student and made modifications to such information, when appropriate. I personally performed the physical exam and medical decision making. Kaylee Perkins, Jul 29, 2020,04:44 LON OCONNOR MED STUDENT Jul 28, 2020 11:02 KAYLEE PERKINS DO Jul 29, 2020 04:44
--- NOTE | 2020-07-28 14:25 | Diagnostic Imaging Report ---
INDICATION: Elevated alkaline phosphatase levels. Patient does have history of bladder cancer. TECHNIQUE: Patient was administered 27.1 mCi technetium 99m MDP intravenously and whole body imaging was performed after a three-hour delay. COMPARISON: No prior bone scans are available for comparison. FINDINGS: There is uptake of activity by the axial and appendicular skeleton. There is uptake by the kidneys with excretion into the urinary bladder. Hazy activity over the abdomen is noted which may be from ascites. No focus of uptake within the osseous structures is seen to suggest osseous metastatic disease. IMPRESSION: No scintigraphic evidence of osseous metastatic disease. Dictated by: Dictated on workstation # [id number]
[2020-07-28] MEDS: RT-ALBUTEROL INHALER HFA (VENTOLIN HFA) 18 GM IH SCH ×3 (14:29→18:19)
[2020-07-28] MEDS: ADVAIR HFA 115/21 MCG INHALER 8 GM IH SCH ×2 (14:30→18:19)
[2020-07-28] MEDS: ENOXAPARIN 40 MG/0.4 ML (LOVENOX) SYR SQ SCH (17:12)
[2020-07-28] MEDS: CHOLESTYRAMINE 4 GM (QUESTRAN LITE, PREVALITE) PKT PO PRN (21:09)
[2020-07-29] MEDS: LACTATED RINGERS 1,000 ML IV SCH ×3 (00:39→18:53)
[2020-07-29 04:04] VITALS: BP 130/83
[2020-07-29 06:02] LABS: BASOPHILS % (AUTO) 0 % (0-10); EOSINOPHILS % (AUTO) 0 % (0-10); HEMATOCRIT 48 % (40-54); HEMOGLOBIN 15.9 g/dL (13.3-17.7); LYMPHOCYTES # (AUTO) 1.3 10^3/uL (1.0-4.0); LYMPHOCYTES % (AUTO) 13 % (12-44); MEAN CORPUSCULAR HEMOGLOBIN 30 pg (25-34); MEAN CORPUSCULAR HGB CONC 33 g/dL (32-36); MEAN CORPUSCULAR VOLUME 90 fL (80-99); MEAN PLATELET VOLUME 11.7 fL (9.0-12.2); MONOCYTES % (AUTO) 10 % (0-12); NEUTROPHILS # (AUTO) 7.4 10^3/uL (1.8-7.8); NEUTROPHILS % (AUTO) 77 % (42-75); PLATELET COUNT 295 10^3/uL (130-400); WHITE BLOOD COUNT 9.7 10^3/uL (4.3-11.0)
[2020-07-29 06:18] LABS: ALBUMIN 1.8 GM/DL (3.2-4.5)
[2020-07-29 06:19] LABS: POTASSIUM 4.1 MMOL/L (3.6-5.0)
[2020-07-29 06:20] LABS: CALCIUM 7.2 MG/DL (8.5-10.1)
[2020-07-29 06:21] LABS: TOTAL PROTEIN 4.3 GM/DL (6.4-8.2)
[2020-07-29 06:23] LABS: BILIRUBIN,TOTAL 0.7 MG/DL (0.1-1.0)
[2020-07-29 06:25] LABS: CREATININE SERUM 1.49 MG/DL (0.60-1.30)
[2020-07-29] MEDS: RT-ALBUTEROL INHALER HFA (VENTOLIN HFA) 18 GM IH SCH ×4 (07:08→22:59)
[2020-07-29] MEDS: ADVAIR HFA 115/21 MCG INHALER 8 GM IH SCH ×2 (07:11→22:59)
--- NOTE | 2020-07-29 07:11 | Progress Note - Urology ---
Progress Note-Urology Progress Notes/Assess & Plan Progress/Assessment & Plan BONE SCAN NEGATIVE Final Diagnosis H/O CA BLADDER TEMI LOREDO MD Jul 29, 2020 07:11
[2020-07-29 08:00] VITALS: BP 105/71
[2020-07-29] MEDS: lisINopril 40 MG (PRINIVIL) TABLET PO SCH (08:55)
[2020-07-29] MEDS: amLODIPine 10 MG (NORVASC) TAB PO SCH (08:55)
[2020-07-29] MEDS: FAMOTIDINE 20 MG (PEPCID) TABLET PO SCH (08:55)
[2020-07-29] MEDS: LOPERAMIDE 2 MG (IMODIUM) TABLET PO PRN ×2 (10:32→10:37)
--- NOTE | 2020-07-29 10:36 | Progress Note - Hospitalist ---
LON OCONNOR MED STUDENT 07/29/20 1036: Subjective HPI/CC On Admission Date Seen by Provider: Jul 29, 2020 Time Seen by Provider: 08:30 This is a 69-year-old white male who is known to be Covid positive. He was recently diagnosed on 07/13/2020 of this fall with symptoms beginning July 12. The patient had been recovering slowly with requirements of oxygen from an oxygen concentrator that he had borrowed from a friend. He has been unable to eat very well and is continued to have shortness of breath. In addition he notes that he is having increased abdominal girth and swelling of his legs. CT chest does not reflect any evidence of pneumonia consistent with Covid however it does show ascites with hepatic steatosis and changes consistent with carcinomatosis of the abdomen. The patient did have excision of a large bladder tumor in March of this year and has been undergoing mitomycin (sp?) treatments. The patient had noted some swelling for the last month or 2. CT in March showed no evidence of invasion beyond the bladder and the pathology report showed no evidence of invasion of the bladder tumor into the lamina propria. Subjective/Events-last exam Patient reports he's still having a lot of diarrhea this morning. Pt. reports he's had 8 bouts of watery diarrhea this morning already. He reports having a decreased appetite as well. He denies SOB, cough, fevers, chills, headache, and pain. He also reports that he has some leakage from his paracentesis tap site, reports the nurse has been redressing the puncture site. Review of Systems General: No Chills, No Night Sweats HEENT: No Head Aches, No Visual Changes Pulmonary: No Dyspnea, No Cough Cardiovascular: No: Chest Pain, Palpitations Gastrointestinal: Diarrhea; No: Nausea, Vomiting, Abdominal Pain, Hematochezia Genitourinary: No Dysuria, No Frequency Musculoskeletal: No: neck pain, back pain Neurological: No: Weakness, Numbness Focused Exam Lactate Level 07/26/20 13:14: Lactic Acid Level 1.09 Objective Exam Vital Signs Vital Signs Date Time Temp Pulse Resp B/P (MAP) Pulse Ox O2 Delivery O2 Flow Rate FiO2 07/29/20 10:37 94 Nasal Cannula 1.00 07/29/20 08:00 35.4 81 18 105/71 (82) 11/14/20 21:30 32 Capillary Refill : Less Than 3 Seconds General Appearance: No Apparent Distress, WD/WN HEENT: PERRL/EOMI, Pharynx Normal Neck: Normal Inspection, Non Tender Respiratory: Chest Non Tender, Lungs Clear, No Accessory Muscle Use, No Respiratory Distress, Decreased Breath Sounds Cardiovascular: Regular Rate, Rhythm, Normal Peripheral Pulses Gastrointestinal: Normal Bowel Sounds, Non Tender; No Guarding, No Rebound, No Tenderness Rectal: Deferred Back: Normal Inspection, No Vertebral Tenderness Extremity: Normal Capillary Refill, Non Tender, No Calf Tenderness Neurologic/Psychiatric: Alert, Oriented x3, No Motor/Sensory Deficits, Normal Mood/Affect Skin: Normal Color, Warm/Dry, Ecchymosis (dorsal surface left hand) Lymphatic: No Adenopathy Results/Procedures Lab Laboratory Tests 07/29/20 05:30 07/29/20 05:55 Patient resulted labs reviewed. Imaging: Reviewed Imaging Report Assessment/Plan Assessment and Plan Assess & Plan/Chief Complaint COVID 19 Hypoxia Ascites- possible peritoneal carcinomatosis secondary to probable bladder cancer Markedly elevated alkaline phosphatase Elevated LFT's Bilateral pleural effusions Decreased oral intake Weakness H/O bladder tumor excision- March 2020 S/P mitomycin treatment COPD 1. Continue oxygen therapy- wean as tolerated 2. Gen surg following-paracentesis already performed 3. Urology following 4. Continue decadron 5. Lovenox DVT prophylaxis 6. Followup with peritoneal fluid assays when available 7. Bone scan negative 8. Imodium added for diarrhea today 9. Given his history of a bladder tumor excision, and now his presentation of ascites, SOB, diarrhea, anorexia, bilateral leg swelling, nausea, and a markedly elevated alk phos, full workup should be done to rule out peritoneal c arcinomatosis. Clinical Quality Measures DVT/VTE Risk/Contraindication: Risk Factor Score Per Nursin RFS Level Per Nursing on Admit: 4+=Very High KAYLEE PERKINS DO 07/30/20 0547: Subjective Subjective/Events-last exam Creatinine is 1.49 likely from volume depletion of six liters of ascites removed yesterday Bone scan looked okay Alk-Phos is 815 today Awaiting pathology from paracentesis Conferred with Dr. Prieto Review of Systems General: Fatigue Gastrointestinal: Abdominal Pain, Diarrhea Objective Exam General Appearance: No Apparent Distress, WD/WN, Anxious, Chronically ill Respiratory: Chest Non Tender, Lungs Clear, Normal Breath Sounds, No Accessory Muscle Use, No Respiratory Distress Cardiovascular: Regular Rate, Rhythm, No Edema, No Gallop, No JVD, No Murmur, Normal Peripheral Pulses Neurologic/Psychiatric: Alert, Oriented x3, No Motor/Sensory Deficits, Normal Mood/Affect Diagnosis/Problems Diagnosis/Problems (1) Ascites (2) Diarrhea Status: Acute Qualifiers: Qualified Codes: R19.7 - Diarrhea, unspecified (3) Decreased oral intake Status: Acute (4) Hypovolemia (5) Weakness Status: Acute (6) Bladder cancer Status: Acute Qualifiers: Qualified Codes: C67.9 - Malignant neoplasm of bladder, unspecified Supervisory-Addendum Brief Verification & Attestation Participated in pt care: history, MDM, physical Personally performed: exam, history, MDM, supervision of care Care discussed with: Medical Student Procedures: n/a Results interpretation: Verified all documentation Verification and Attestation of Medical Student E/M Service A medical student performed and documented this service in my presence. I reviewed and verified all information documented by the medical student and made modifications to such information, when appropriate. I personally performed the physical exam and medical decision making. Kaylee Perkins, Jul 30, 2020,05:45 LON OCONNOR MED STUDENT Jul 29, 2020 10:36 KAYLEE PERKINS DO Jul 30, 2020 05:47
[2020-07-29] MEDS ORDERED: PANTOPRAZOLE 40 MG (PROTONIX) TAB PO NR (10:45)
[2020-07-29] MEDS ORDERED: CALCIUM CARBONATE 500 MG (TUMS) TAB.CHEW PO PRN (10:45)
[2020-07-29 12:20] VITALS: BP 113/78
--- NOTE | 2020-07-29 15:40 | NUR ---
Pt feels better this afternoon . He expresses concern for his who remains on ICU with Bi- Pap support, Pt sates he's awaiting test results but thinks he could manage at home alone if he discharges prior then his . He may need oxygen support at home. will follow .
[2020-07-29 16:49] VITALS: BP 105/77
[2020-07-29] MEDS: ENOXAPARIN 40 MG/0.4 ML (LOVENOX) SYR SQ SCH (16:55)
[2020-07-29 20:00] VITALS: BP 116/74
[2020-07-30 00:19] VITALS: BP 110/74
[2020-07-30 04:11] VITALS: BP 120/73
[2020-07-30 06:36] LABS: BASOPHILS % (AUTO) 0 % (0-10); EOSINOPHILS % (AUTO) 0 % (0-10); HEMATOCRIT 46 % (40-54); HEMOGLOBIN 15.5 g/dL (13.3-17.7); LYMPHOCYTES # (AUTO) 0.8 10^3/uL (1.0-4.0); LYMPHOCYTES % (AUTO) 6 % (12-44); MEAN CORPUSCULAR HEMOGLOBIN 30 pg (25-34); MEAN CORPUSCULAR HGB CONC 34 g/dL (32-36); MEAN CORPUSCULAR VOLUME 89 fL (80-99); MEAN PLATELET VOLUME 11.7 fL (9.0-12.2); MONOCYTES # (AUTO) 0.5 10^3/uL (0.0-1.0); MONOCYTES % (AUTO) 4 % (0-12); NEUTROPHILS # (AUTO) 11.9 10^3/uL (1.8-7.8); NEUTROPHILS % (AUTO) 89 % (42-75); PLATELET COUNT 314 10^3/uL (130-400); WHITE BLOOD COUNT 13.3 10^3/uL (4.3-11.0)
[2020-07-30 06:46] LABS: ALBUMIN 1.8 GM/DL (3.2-4.5)
[2020-07-30 06:47] LABS: POTASSIUM 4.1 MMOL/L (3.6-5.0)
[2020-07-30 06:48] LABS: CALCIUM 7.1 MG/DL (8.5-10.1)
[2020-07-30 06:49] LABS: TOTAL PROTEIN 4.2 GM/DL (6.4-8.2)
[2020-07-30 06:51] LABS: BILIRUBIN,TOTAL 0.9 MG/DL (0.1-1.0)
[2020-07-30 06:53] LABS: CREATININE SERUM 1.75 MG/DL (0.60-1.30)
[2020-07-30 07:21] VITALS: BP 98/64
[2020-07-30] MEDS: RT-ALBUTEROL INHALER HFA (VENTOLIN HFA) 18 GM IH SCH ×4 (08:19→21:16)
[2020-07-30] MEDS: ADVAIR HFA 115/21 MCG INHALER 8 GM IH SCH ×2 (08:20→21:16)
[2020-07-30] MEDS: LACTATED RINGERS 1,000 ML IV SCH ×2 (08:21→20:55)
[2020-07-30] MEDS: lisINopril 40 MG (PRINIVIL) TABLET PO SCH (08:21)
[2020-07-30] MEDS: FAMOTIDINE 20 MG (PEPCID) TABLET PO SCH (08:21)
[2020-07-30] MEDS: amLODIPine 10 MG (NORVASC) TAB PO SCH (08:21)
[2020-07-30] MEDS: PANTOPRAZOLE 40 MG (PROTONIX) TAB PO SCH (08:21)
--- NOTE | 2020-07-30 12:04 | Progress Note - Hospitalist ---
LON OCONNOR MED STUDENT 07/30/20 1204: Subjective HPI/CC On Admission Date Seen by Provider: Jul 30, 2020 Time Seen by Provider: 09:15 This is a 69-year-old white male who is known to be Covid positive. He was recently diagnosed on 07/13/2020 of this fall with symptoms beginning July 12. The patient had been recovering slowly with requirements of oxygen from an oxygen concentrator that he had borrowed from a friend. He has been unable to eat very well and is continued to have shortness of breath. In addition he notes that he is having increased abdominal girth and swelling of his legs. CT chest does not reflect any evidence of pneumonia consistent with Covid however it does show ascites with hepatic steatosis and changes consistent with carcinomatosis of the abdomen. The patient did have excision of a large bladder tumor in March of this year and has been undergoing mitomycin (sp?) treatments. The patient had noted some swelling for the last month or 2. CT in March showed no evidence of invasion beyond the bladder and the pathology report showed no evidence of invasion of the bladder tumor into the lamina propria. Subjective/Events-last exam Patient reports that the diarrhea has decreased significantly. He reports still having a poor appetite and decreased intake. He denies SOB, chest pain, fevers, chills, nausea, and vomiting. He reports that his abdomen is unchanged from yesterday. He denies having any pain currently, but reports having "gas pains" over night. He also appears anxious this morning and reports that his who's currently a patient in the ICU was just intubated this morning. Review of Systems General: No Chills, No Night Sweats HEENT: No Head Aches, No Visual Changes Pulmonary: No Dyspnea, No Cough Cardiovascular: No: Chest Pain, Palpitations Gastrointestinal: No: Nausea, Vomiting, Abdominal Pain Genitourinary: No Dysuria, No Frequency Musculoskeletal: No: neck pain, back pain Neurological: No: Weakness, Numbness Objective Exam Vital Signs Vital Signs Date Time Temp Pulse Resp B/P (MAP) Pulse Ox O2 Delivery O2 Flow Rate FiO2 07/30/20 08:26 Nasal Cannula 1.50 07/30/20 07:21 36.8 76 20 98/64 (75) 94 07/26/20 21:30 32 Capillary Refill : Less Than 3 Seconds General Appearance: No Apparent Distress, WD/WN HEENT: PERRL/EOMI, Pharynx Normal Neck: Full Range of Motion, Non Tender Respiratory: Chest Non Tender, Lungs Clear, No Accessory Muscle Use, No Respiratory Distress, Decreased Breath Sounds Cardiovascular: Regular Rate, Rhythm, Normal Peripheral Pulses Gastrointestinal: Normal Bowel Sounds, Non Tender, Soft, Distended; No Guarding, No Rebound Rectal: Deferred Back: Normal Inspection, No Vertebral Tenderness; No Muscle Spasm Extremity: Normal Capillary Refill, Normal Range of Motion, Non Tender, No Calf Tenderness, Pedal Edema (1+ pedal edema Bilat) Neurologic/Psychiatric: Alert, Oriented x3, No Motor/Sensory Deficits, Normal Mood/Affect Skin: Normal Color, Warm/Dry, Ecchymosis (dorsal left hand) Lymphatic: No Adenopathy Results/Procedures Lab Laboratory Tests 07/30/20 06:21 Patient resulted labs reviewed. Imaging: Reviewed Imaging Report Assessment/Plan Assessment and Plan Assess & Plan/Chief Complaint COVID 19 Hypoxia- Ascites- possible peritoneal carcinomatosis secondary to probable bladder cancer Markedly elevated alkaline phosphatase Elevated LFT's Bilateral pleural effusions Decreased oral intake Weakness H/O bladder tumor excision- March 2020 S/P mitomycin treatment COPD Creatine trending up 1. Continue oxygen therapy- wean as tolerated 2. Gen surg following-paracentesis already performed 3. Continue decadron 4. Lovenox DVT prophylaxis 5. Peritoneal fluid analysis negative for malignant cells 6. Consult Oncology to guide further management 7. Given his history of a bladder tumor excision, and now his presentation of ascites, SOB, diarrhea, anorexia, bilateral leg swelling, nausea, and a markedly elevated alk phos, full workup should be done to rule out peritoneal carcinomatosis. 8. Continue LR at 75 ml/hr Clinical Quality Measures DVT/VTE Risk/Contraindication: Risk Factor Score Per Nursin RFS Level Per Nursing on Admit: 4+=Very High KAYLEE PERKINS DO 07/31/20 0553: Subjective Subjective/Events-last exam Pt having less diarrhea since Imodium taken BP 98/64 Creatinine 1.[address] Garg IV fluid maintained LR at 75 Review of Systems General: Fatigue Objective Exam General Appearance: No Apparent Distress, WD/WN, Chronically ill Respiratory: Chest Non Tender, Lungs Clear, No Accessory Muscle Use, No Respir atory Distress, Decreased Breath Sounds Cardiovascular: Regular Rate, Rhythm Assessment/Plan Assessment and Plan Assess & Plan/Chief Complaint Oncology consult IVF Monitor creat Supervisory-Addendum Brief Verification & Attestation Participated in pt care: history, MDM, physical Personally performed: exam, history, MDM, supervision of care Care discussed with: Medical Student Procedures: n/a Results interpretation: Verified all documentation Verification and Attestation of Medical Student E/M Service A medical student performed and documented this service in my presence. I reviewed and verified all information documented by the medical student and made modifications to such information, when appropriate. I personally performed the physical exam and medical decision making. Kaylee Perkins, Jul 31, 2020,05:52 LON OCONNOR MED STUDENT Jul 30, 2020 12:04 KAYLEE PERKINS DO Jul 31, 2020 05:53
[2020-07-30 16:24] VITALS: BP 114/78
[2020-07-30] MEDS: ENOXAPARIN 40 MG/0.4 ML (LOVENOX) SYR SQ SCH (18:14)
[2020-07-31 00:20] VITALS: BP 125/81
[2020-07-31 06:03] LABS: BASOPHILS % (AUTO) 0 % (0-10); EOSINOPHILS % (AUTO) 0 % (0-10); HEMATOCRIT 39 % (40-54); HEMOGLOBIN 13.6 g/dL (13.3-17.7); LYMPHOCYTES # (AUTO) 1.2 10^3/uL (1.0-4.0); LYMPHOCYTES % (AUTO) 8 % (12-44); MEAN CORPUSCULAR HEMOGLOBIN 30 pg (25-34); MEAN CORPUSCULAR HGB CONC 35 g/dL (32-36); MEAN CORPUSCULAR VOLUME 88 fL (80-99); MEAN PLATELET VOLUME 12.7 fL (9.0-12.2); MONOCYTES % (AUTO) 7 % (0-12); NEUTROPHILS # (AUTO) 12.2 10^3/uL (1.8-7.8); NEUTROPHILS % (AUTO) 84 % (42-75); PLATELET COUNT 283 10^3/uL (130-400); WHITE BLOOD COUNT 14.6 10^3/uL (4.3-11.0)
[2020-07-31 06:27] LABS: ALBUMIN 1.5 GM/DL (3.2-4.5); BILIRUBIN,TOTAL 0.8 MG/DL (0.1-1.0); CALCIUM 7.1 MG/DL (8.5-10.1); CREATININE SERUM 1.71 MG/DL (0.60-1.30); POTASSIUM 4.4 MMOL/L (3.6-5.0); TOTAL PROTEIN 3.8 GM/DL (6.4-8.2)
[2020-07-31 08:00] VITALS: BP 111/63
[2020-07-31] MEDS: amLODIPine 10 MG (NORVASC) TAB PO SCH (08:03)
[2020-07-31] MEDS: PANTOPRAZOLE 40 MG (PROTONIX) TAB PO SCH (08:03)
[2020-07-31] MEDS: FAMOTIDINE 20 MG (PEPCID) TABLET PO SCH (08:03)
[2020-07-31] MEDS: lisINopril 40 MG (PRINIVIL) TABLET PO SCH (08:03)
[2020-07-31 08:04] LABS: ANISOCYTOSIS SLIGHT; BAND NEUTROPHILS 6 %; BASOPHILS % (MANUAL) 0 %; EOSINOPHILS % (MANUAL) 0 %; HOWELL-JOLLY BODIES SLIGHT; LYMPHOCYTES % (MANUAL) 3 %; MONOCYTES % (MANUAL) 6 %; NEUTROPHILS % (MANUAL) 85 %; POIKILOCYTOSIS SLIGHT; TARGET CELLS SLIGHT
[2020-07-31] MEDS: RT-ALBUTEROL INHALER HFA (VENTOLIN HFA) 18 GM IH SCH ×2 (08:15→22:23)
[2020-07-31 08:18] VITALS: BP 125/81
[2020-07-31] MEDS: LACTATED RINGERS 1,000 ML IV SCH (10:26)
--- NOTE | 2020-07-31 11:40 | Progress Note - Hospitalist ---
LON OCONNOR MED STUDENT 07/31/20 1140: Subjective HPI/CC On Admission Date Seen by Provider: Jul 31, 2020 Time Seen by Provider: 09:00 This is a 69-year-old white male who is known to be Covid positive. He was recently diagnosed on 07/13/2020 of this fall with symptoms beginning July 12. The patient had been recovering slowly with requirements of oxygen from an oxygen concentrator that he had borrowed from a friend. He has been unable to eat very well and is continued to have shortness of breath. In addition he notes that he is having increased abdominal girth and swelling of his legs. CT chest does not reflect any evidence of pneumonia consistent with Covid however it does show ascites with hepatic steatosis and changes consistent with carcinomatosis of the abdomen. The patient did have excision of a large bladder tumor in March of this year and has been undergoing mitomycin (sp?) treatments. The patient had noted some swelling for the last month or 2. CT in March showed no evidence of invasion beyond the bladder and the pathology report showed no evidence of invasion of the bladder tumor into the lamina propria. Subjective/Events-last exam Mr. Dowling reports increased bilateral lower leg swelling today. Reports his abdomen appears unchanged from yesterday. He reports improving oral intake and improved appetite today. States his breathing is the same as yesterday as well. He denies chest pain, fever, chills, nausea, vomiting, and diarrhea. He wants to know what the plan is moving forward regarding his care. Review of Systems General: No Chills, No Night Sweats; Malaise HEENT: No Head Aches, No Visual Changes Pulmonary: No Dyspnea, No Cough Cardiovascular: Edema (BLE +3 pitting edema); No: Chest Pain, Palpitations, Orthopnea Gastrointestinal: No: Nausea, Vomiting, Abdominal Pain, Diarrhea, Constipation Genitourinary: No Dysuria, No Frequency Musculoskeletal: No: neck pain, back pain Neurological: No: Weakness, Numbness Objective Exam Vital Signs Vital Signs Date Time Temp Pulse Resp B/P (MAP) Pulse Ox O2 Delivery O2 Flow Rate FiO2 07/31/20 08:18 36.2 77 98 28 07/31/20 08:00 16 111/63 (79) Nasal Cannula 2.00 Capillary Refill : Less Than 3 Seconds General Appearance: No Apparent Distress, WD/WN HEENT: PERRL/EOMI, Pharynx Normal Neck: Full Range of Motion, Non Tender Respiratory: Chest Non Tender, Lungs Clear, No Accessory Muscle Use, No Respiratory Distress, Decreased Breath Sounds Cardiovascular: Regular Rate, Rhythm, Normal Peripheral Pulses, Other (BLE pitting edema) Gastrointestinal: Normal Bowel Sounds, Non Tender, Soft, Distended; No Guarding , No Rebound, No Tenderness Rectal: Deferred Back: Normal Inspection, No Vertebral Tenderness Extremity: Normal Capillary Refill, Non Tender, No Calf Tenderness, Pedal Edema (+3/4 pitting edema bilaterally) Neurologic/Psychiatric: Alert, Oriented x3, No Motor/Sensory Deficits, Normal Mood/Affect Skin: Normal Color, Warm/Dry Lymphatic: No Adenopathy Results/Procedures Lab Laboratory Tests 07/31/20 05:43 07/31/20 05:53 Patient resulted labs reviewed. Imaging: Reviewed Imaging Report Assessment/Plan Assessment and Plan Assess & Plan/Chief Complaint COVID 19 Hypoxia- Ascites- possible peritoneal carcinomatosis secondary to probable bladder cancer Markedly elevated alkaline phosphatase Elevated LFT's Bilateral pleural effusions Decreased oral intake Weakness H/O bladder tumor excision- March 2020 S/P mitomycin treatment COPD Creatine stable, down slightly today 1. Continue oxygen therapy- wean as tolerated 2. Gen surg following-paracentesis already performed 3. Continue decadron 4. Lovenox DVT prophylaxis 6. Consult Oncology to guide further management 7. Given his history of a bladder tumor excision, and now his presentation of ascites, SOB, diarrhea, anorexia, bilateral leg swelling, nausea, and a markedly elevated alk phos, full workup should be done to rule out peritoneal carcinomatosis. 8. Continue LR at 75 ml/hr Clinical Quality Measures DVT/VTE Risk/Contraindication: Risk Factor Score Per Nursin RFS Level Per Nursing on Admit: 4+=Very High KAYLEE PERKINS DO 08/01/20 0459: Subjective Subjective/Events-last exam Spoke with Dr. Queen and she will see him in consultation He saw Dr. Queen for bladder cancer this summer Creatinine stable at 1.7 Lactated ringer IV fluid maintained at 75cc an hour Bone scan was negative Review of Systems General: Fatigue Objective Exam General Appearance: No Apparent Distress, WD/WN, Chronically ill Respiratory: Lungs Clear Cardiovascular: Regular Rate, Rhythm Assessment/Plan Assessment and Plan Assess & Plan/Chief Complaint Oncology consultation Check labs in am Prognosis guarded Supervisory-Addendum Brief Verification & Attestation Participated in pt care: history, MDM, physical Personally performed: exam, history, MDM, supervision of care Care discussed with: Medical Student Procedures: n/a Results interpretation: Verified all documentation Verification and Attestation of Medical Student E/M Service A medical student performed and documented this service in my presence. I reviewed and verified all information documented by the medical student and made modifications to such information, when appropriate. I personally performed the physical exam and medical decision making. Kaylee Perkins, Aug 01, 2020,04:58 LON OCONNOR MED STUDENT Jul 31, 2020 11:40 KAYLEE PERKINS DO Aug 01, 2020 04:59
--- NOTE | 2020-07-31 15:26 | Oncology Consultation ---
Visit Information Visit Information Date of Admission Jul 26, 2020 at 14:51 Attending Physician Fernanda Romero MD Admitting Physician Kj Krueger MD Chief Complaint Ascites , bladder cancer and Covid 19 Interval History Called to evaluate the ascites in the setting of the low grade bladder cancer. Mr. Dowling is a 69 year old white man know to me at the cancer center, he was initially referred to me from community care clinic for evaluation of persistent elevation of the serum Alk phos, Hb and Hct in the setting of COPD and h/o of lung nodule for over a year. He was noticed of lung nodule about 7-8 years ago in [facility] and was suggested to have the biopsy but he did not make a big deal of it. 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 He decided to quit smoking and everything should be fine. He had about 45 pkyr smoking before he quit about 8 years ago. He also has right hip pain lately and mild issue at night [place]. He has hyperlipidemia and was put on Atrovastatin medication which was doubled the dose a few month ago. Pt's daughter had trouble with the same statin drug and her doctor had to take her off the medication. So patient reduced the Atrovastatin by himself to his previous dose. I did a CT scan evaluation February 2020 and noticed diffuse fatty liver and a tumor in the bladder. 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 No muscle wall invasion. Tumor size 2.5cm. Low risk category according to NCCN guideline. He recovered from the procedure and had 7 doses of weekly Mitomycine to the bladder at Dr. Gloria's office. He noticed that his belly was getting bigger and told the Dr. Gloria's nurse but did not have any work up. He finished his 7 treatment and then had Corvid 19 over 2 weeks ago. Because of the difficulty of breathing from the ascities, he had pericentasis and had about 6-7 liters of ascites 3 days ago. Pathology showed reactive inflammatory cells, NO malignancy. CT scans of the chest and abdomen during this admission showed no nodular lesions but can not rule out peritoneal disease. I consulted the patient on: 07/31/20 15:21 Time Seen by Provider: 15:22 Review of Systems Constitutional: weakness Respiratory: see HPI Gastrointestinal: see HPI Health Status Allergies Coded Allergies: No Known Drug Allergies (Unverified , 04/01/20) Home Medications Amlodipine Besylate (Amlodipine Besylate) 10 Mg Tablet, 10 MG PO HS, (Reported) Ascorbic Acid (Vitamin C) 500 Mg Tab.chew, 1,000 MG PO DAILY, (Reported) Aspirin (Aspirin EC) 81 Mg Tablet.dr, 81 MG PO DAILY, (Reported) Calcium Carb/Magnesium Hydrox (Antacid Chewable Tablet) 1 Each Tab.chew, 1-2 EACH PO PRN PRN for HEARTBURN, (Reported) Cholecalciferol (Vitamin D3) (Vitamin D3) 25 Mcg Capsule, 25 MCG PO DAILY, (Reported) Famotidine ([employer] Associate (FAMOTIDINE)) 20 Mg Tablet, 20 MG PO BID, (Reported) Fluticasone/Salmeterol (Advair 250-50 Diskus) 1 Each Blst.w.dev, 1 EACH IH BID, (Reported) Furosemide (Furosemide) 20 Mg Tablet, 20 MG PO DAILY, (Reported) Lisinopril (Lisinopril) 40 Mg Tablet, 40 MG PO DAILY, (Reported) Zinc (Zinc) 50 Mg Tablet, 50 MG PO DAILY, (Reported) BUJ-Osqikt-Ezacwl Hx Patient Social History Marrital Status: Employed/Student: retired Alcohol Use: Rarely Uses Recreational Drug Use: No Smoking Status: Former Smoker 2nd Hand Smoke Exposure: No Recent Foreign Travel: No Contact w/other who traveled: No Recent Infectious Disease Expo: No Recent Hopitalizations: No Immunizations Up To Date Date of Pneumonia Vaccine: Jun 12, 2019 Family Medical History Significant Family History: No Pertinent Family Hx Physical Exam Vital Signs Vital Signs - First Documented 07/26/20 21:30 FiO2 32 Capillary Refill : Less Than 3 Seconds Height, Weight, BMI Height: '" Weight: lbs. oz. kg; 26.82 BMI Method: General Appearance: No Apparent Distress, Obese HEENT: PERRL/EOMI Neck: Non Tender, Supple Respiratory: No Accessory Muscle Use, No Respiratory Distress Cardiovascular: Regular Rate, Rhythm Gastrointestinal: Soft, Distended, Other (very distended with ascites and obese) Extremity: Non Tender, No Calf Tenderness, Pedal Edema Neurologic/Psychiatric: Alert, Oriented x3 Data Review Labs Laboratory Tests 07/31/20 05:43 07/31/20 05:53 Laboratory Tests 07/29/20 05:30: Red Cell Distribution Width 17.8H, Neutrophils (%) (Auto) 77H 07/29/20 05:55: Carbon Dioxide Level 18L, Blood Urea Nitrogen 50H, Creatinine 1.49H, Calcium Level 7.2L, Aspartate Amino Transf (AST/SGOT) 85H, Alkaline Phosphatase 815H, Total Protein 4.3L, Albumin 1.8L 07/30/20 06:21: Red Cell Distribution Width 17.2H, Neutrophils (%) (Auto) 89H, Carbon Dioxide Level 18L, Blood Urea Nitrogen 55H, Creatinine 1.75H, Calcium Level 7.1L, Aspartate Amino Transf (AST/SGOT) 83H, Alkaline Phosphatase 754H, Total Protein 4.2L, Albumin 1.8L, White Blood Count 13.3H, Lymphocytes (%) (Auto) 6L, Neutrophils # (Auto) 11.9H, Lymphocytes # (Auto) 0.8L, Sodium Level 134L 07/31/20 05:43: Red Cell Distribution Width 17.2H, Neutrophils (%) (Auto) 84H, White Blood Count 14.6H, Lymphocytes (%) (Auto) 8L, Neutrophils # (Auto) 12.2H, Hematocrit 39L, Mean Platelet Volume 12.7H 07/31/20 05:53: Sodium Level 134L, Chloride Level 109H, Carbon Dioxide Level 17L, Blood Urea Nitrogen 59H, Creatinine 1.71H, Calcium Level 7.1L, Aspartate Amino Transf (AST/SGOT) 60H, Alkaline Phosphatase 633H, Total Protein 3.8L, Albumin 1.5L Laboratory Tests 07/31/20 05:43 07/31/20 05:53 Radiology Lab outside: 02/07/2020 Alk phos 708, AST 52, ALT 44, Bili 0.4, Cr 0.9, Protein 4.9, Albumin 2.6, WBC 8.5, Hb 18.1, Hct 53.9, Plt 429. Date of Exam:03/06/20 CT CHEST W/ABDOMEN-PELVIS W WO PROCEDURE: CT chest with contrast, CT abdomen and pelvis with and without contrast. INDICATION: `intraperitoneal air or fluid. The liver measures 18 cm in craniocaudal dimension and has diffuse hypoattenuation indicative of hepatic steatosis. In the inferior aspect of the right hepatic lobe (segment 6) there is a 2.0 x 2.1 cm peripherally enhancing cavernous type hemangioma. A benign cyst is also present in the central aspect of the liver measuring 3.2 x 2.5 cm and this requires no dedicated follow up imaging. No suspicious hepatic masses. The spleen measures 7.5 cm in maximal dimension. No focal splenic lesion. The pancreas and adrenals are normal. The kidneys enhance symmetrically without solid mass lesion or obstruction. Multiple bilateral renal cysts are simple in nature with the largest measuring 4.2 x 3.7 cm in the mid left kidney. These require no dedicated follow-up imaging. Urinary bladder is partially filled and there is a lobulated partially endophytic mass right ladonna-aspect of the urinary bladder at the UVJ measuring 2.2 x 1.1 cm and must be considered bladder neoplasm until proven otherwise. No features of extension of tumor beyond the urinary bladder. Colonic diverticulosis without diverticulitis. No bowel obstruction. The stomach is decompressed, limiting assessment. Appendix is normal. No abdominal or pelvic lymphadenopathy. Atherosclerotic aorta is normal in caliber. No concerning focal osseous lesions. IMPRESSION: 1. Polylobulated mass along the right ladonna-aspect of the urinary bladder is near the ureterovesicular junction and must be considered a primary bladder cancer until proven otherwise. Urology consultation is recommended. 2. No features of tumor extension beyond the urinary bladder and there is no obstruction of the right ureter at this time. 3. No features of metastatic disease in the chest, abdomen or pelvis. 4. Diffuse hepatic steatosis. 5. Incidental note of fatty tumor in the left latissimus dorsi. Given size of up to 10 cm, this may represent an atypical lipomatous tumor. Correlation with physical exam is suggested. Pathology 04/02/2020: Urinary bladder, Low grade papillary urothelial carcinoma, focal high grade papillary Date of Exam:07/27/20 CT ABDOMEN/PELVIS W PROCEDURE: CT abdomen and pelvis with contrast. INDICATION: Ascites, possible carcinoma. History of bladder cancer. CORRELATION STUDY: 03/06/2020. FINDINGS: Advanced emphysematous changes about the lung bases. Small pleural effusions. There is some consolidation in the medial left lower lobe. There is presence of a small amount of free air particularly in the upper abdomen anteriorly. There is presence of an apparent percutaneous catheter in the right mid abdomen. Catheter courses just below the right hepatic lobe. There is presence of a currently small volume abdominal and pelvic ascites. There is a 3 cm cystic mass in right lobe of the liver, unchanged. There are asymmetric areas of vascular enhancement scattered within the liver. Largest at the inferior right hepatic lobe may reflect cavernous hemangioma. There is also noted asymmetric vascular enhancement of the right lobe of the liver which happens to be in close proximity to the catheter. No contrast extravasation. Gallbladder is present and contains some high density. May be some sludge or debris versus stones. The catheter tubing is also noted to be below the gallbladder. Spleen, pancreas and adrenal glands are unchanged. Multiple low-density masses of the kidneys favoring probable cysts. No hydronephrosis. Extensive colonic diverticulosis is noted. Inflammatory changes of the gastrointestinal tract would be difficult to exclude given the ascites. Urinary bladder contains high density contrast. Prostate gland unremarkable. Moderate aortoiliac wall calcification. IMPRESSION: 1. There is presence of free air in the upper abdomen. This appears changed from examination one day earlier. There is presence of a percutaneous catheter which may be attributed to this. Possibility of visceral perforation, however, is not excluded. 2. Small volume abdominal and pelvic ascites. 3. Extensive colonic diverticulosis. Definitive inflammation is not suggested, however, could easily go undetected given the generalized ascites. 4. Asymmetric areas of nodular vascular enhancement. These findings correspond to previous noted cavernous hemangioma. Other lesions are somewhat indeterminate. Early vascular metastasis is considered less likely but not excluded. Follow-up imaging recommended. 5. High density material in the gallbladder, likely sludge and debris. 6. Basilar pneumonia. Impression & Plan Impression & Plan 1. 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 No muscle wall invasion. Tumor size 2.5cm. Low risk category according to NCCN guideline. s/p TURB and 7 doses of mitomycine treatment to the bladder. Ascites developed during the mitomycine bladder treatment. 2. Chronic elevated Alk Phos and AST, CT showed fatty liver/diffuse hepatic steatosis 02/2020 as well as 07/27/2020. 3. h/o lung nodule at [place] 8 years ago but lost follow up. Stable. 4. COPD and 45 PKYR smoking 5. Hyperlipidemia on Atrovastatin. His daughter had trouble with it and had to be taken off. Pt reduced the dose to half but LFT has not improved. 6. Right hip pain and trouble urinating at night, most likely related to #1. 7. Large fatty tumor in the right upper back, benign tumor. 8. Acute renal insufficiency noticed this admission. Rec: 1. I think the large ascites is most likely due to chronic diffuse fatty liver and liver decompensation after the mitomycine treatment. The question is that if we can completely rule out the peritoneal carcinomatosis as per radiologist suggested in the report. I would recommend a explore lap to see if any seeding in the peritoneal. I have called Dr Prieto for the procedure. If the ascites is persistent, we may consider a percutaneous peritoneal catheter drainage for a while until his liver recover from the decompensation of mitomycine and Covid 19. 2. The elevated AST and Alk phos in his lab is most likely due to diffuse hepatic steatosis. However, it would be beneficial for a event marketing coordinator consultation in the future. 3. I will f/u with report of the explore lap report and pathology. TONNY HERNANDEZ MD Jul 31, 2020 15:26
[2020-07-31 16:56] VITALS: BP 119/72
--- NOTE | 2020-07-31 17:12 | NUR ---
Pts had an event in [facility] (she is a pt in ICU) I contacted pt sat with him as he shared fears and concerns and some life review, had prayer with py, will follow and offer support.
[2020-07-31] MEDS: ENOXAPARIN 40 MG/0.4 ML (LOVENOX) SYR SQ SCH (18:03)
[2020-07-31] MEDS: ADVAIR HFA 115/21 MCG INHALER 8 GM IH SCH (22:25)
[2020-08-01 00:23] VITALS: BP 109/71
[2020-08-01] MEDS: LACTATED RINGERS 1,000 ML IV SCH (01:21)
[2020-08-01 05:58] LABS: HEMOGLOBIN 14.2 g/dL (13.3-17.7); MEAN PLATELET VOLUME 12.6 fL (9.0-12.2); WHITE BLOOD COUNT 12.8 10^3/uL (4.3-11.0)
[2020-08-01 06:07] LABS: ALBUMIN 1.7 GM/DL (3.2-4.5); POTASSIUM 4.3 MMOL/L (3.6-5.0)
[2020-08-01 06:09] LABS: CALCIUM 7.2 MG/DL (8.5-10.1)
[2020-08-01 06:10] LABS: TOTAL PROTEIN 4.3 GM/DL (6.4-8.2)
[2020-08-01 06:12] LABS: BILIRUBIN,TOTAL 0.9 MG/DL (0.1-1.0)
[2020-08-01 06:13] LABS: CREATININE SERUM 1.43 MG/DL (0.60-1.30)
[2020-08-01] MEDS: ADVAIR HFA 115/21 MCG INHALER 8 GM IH SCH (07:55)
[2020-08-01] MEDS: RT-ALBUTEROL INHALER HFA (VENTOLIN HFA) 18 GM IH SCH (07:56)
[2020-08-01 08:10] VITALS: BP 130/91
--- NOTE | 2020-08-01 10:39 | NUR ---
Swing Bed Note: Evaluation order for swing bed received. Qualifies for swing bed for need of Physical and Occupational Therapies (Debility r/t s/p COVID 19) with continued oxygen monitoring and weaning. Patient will admit to swing bed status today 08/01/20.
--- NOTE | 2020-08-01 11:04 | Progress Note ---
LON OCONNOR MED STUDENT 08/01/20 1104: Progress Note Hospital Course: Fausto Dowling is a 69 year old white male who was admitted with increasing SOB, poor appetite, increased abdominal girth, and increasing leg swelling. He was diagnosed with COVID 19 on July 13. His symptoms began July 12. The patient had a bladder tumor resection in March of 2020 and seven instillations of mitomycin. Since that point in time his abdominal girth has been worsening per the patient. General surgery was consulted and Dr. Prieto performed a paracentesis this hospital stay, drained approximately 6-7 L at that time. Peritoneal fluid analysis was negative for malignant cells and so oncology was consulted for further management. Oncology relays his ascites is at least in part due to chronic diffuse liver disease and likely liver decompensation after the mitomycin treatment. Oncology consulted general surgery, this time to ascertain the possibility of having a lap exp surgery to look for signs of peritoneal seeding and possible peritoneal carcinomatosis. The patient has been consistently on 1-2 L oxygen via NC for the duration of his stay and vital signs have remained stable. Given the patients debility related weakness and likely high risk surgical candidate, he is being transferred to swing bed status for further care for the time being. KAYLEE PERKINS DO 08/02/20 0617: Supervisory-Addendum Brief Verification & Attestation Participated in pt care: history, MDM, physical Personally performed: exam, history, MDM, supervision of care Care discussed with: Medical Student Procedures: n/a Results interpretation: Verified all documentation Verification and Attestation of Medical Student E/M Service A medical student performed and documented this service in my presence. I reviewed and verified all information documented by the medical student and made modifications to such information, when appropriate. I personally performed the physical exam and medical decision making. Kaylee Perkins, Aug 02, 2020,06:17 LON OCONNOR MED STUDENT Aug 01, 2020 11:04 KAYLEE PERKINS DO Aug 02, 2020 06:17
--- NOTE | 2020-08-01 11:45 | Discharge Summary ---
Discharge Summary Hospital Course Was the Problem List Reviewed?: Yes Problems/Dx: (1) Ascites (2) Diarrhea Status: Acute Qualifiers: Qualified Codes: R19.7 - Diarrhea, unspecified (3) Decreased oral intake Status: Acute (4) Hypovolemia (5) Weakness Status: Acute (6) Bladder cancer Status: Acute Qualifiers: Qualified Codes: C67.9 - Malignant neoplasm of bladder, unspecified Hospital Course Date of Admission: Jul 26, 2020 at 14:51 Admission Diagnosis : Family Physician/Provider: Kj Krueegr MD Date of Discharge: 08/01/20 Discharge Diagnosis: COVID-19 recent dx, Ascites, elevated AP, bladder tumor Hospital Course: Hospital Course per Roldan De Los Santos: Fausto Dowling is a 69 year old white male who was admitted with increasing SOB, poor appetite, increased abdominal girth, and increasing leg swelling. He was diagnosed with COVID 19 on July 13. His symptoms began July 12. The patient had a bladder tumor resection in March of 2020 and seven instillations of mitomycin. Since that point in time his abdominal girth has been worsening per the patient. General surgery was consulted and Dr. Prieto performed a paracentesis this hospital stay, drained approximately 6-7 L at that time. Peritoneal fluid analysis was negative for malignant cells and so oncology was consulted for further management. Oncology relays his ascites is at least in part due to chronic diffuse liver disease and likely liver decompensation after the mitomycin treatment. Oncology consulted general surgery, this time to ascertain the possibility of having a lap exp surgery to look for signs of peritoneal seeding and possible peritoneal carcinomatosis. The patient has been consistently on 1-2 L oxygen via NC for the duration of his stay and vital signs have remained stable. Given the patients debility related weakness and likely high risk surgical candidate, he is being transferred to swing bed status for further care for the time being. Labs and Pending Lab Test: Laboratory Tests 08/01/20 05:30: White Blood Count 12.8H, Red Blood Count 4.73, Hemoglobin 14.2, Hematocrit 42, Mean Corpuscular Volume 88, Mean Corpuscular Hemoglobin 30, Mean Corpuscular Hemoglobin Concent 34, Red Cell Distribution Width 16.8H, Platelet Count 324, Mean Platelet Volume 12.6H, Sodium Level 138, Potassium Level 4.3, Chloride Level 111H, Carbon Dioxide Level 18L, Anion Gap 9, Blood Urea Nitrogen 53H, Creatinine 1.43H, Estimat Glomerular Filtration Rate 49, BUN/Creatinine Ratio 37, Glucose Level 75, Calcium Level 7.2L, Corrected Calcium 9.0, Total Bilirubin 0.9, Aspartate Amino Transf (AST/SGOT) 56H, Alanine Aminotransferase (ALT/SGPT) 42, Alkaline Phosphatase 675H, Total Protein 4.3L, Albumin 1.7L Microbiology 07/27/20 Gram Stain - Final, Complete 07/27/20 Body Fluid Culture - Final, Complete No growth 07/26/20 Urine Culture - Final, Complete 3 or more isolates 07/26/20 Blood Culture - Final, Complete No growth Home Meds Active Reported Antacid Chewable Tablet (Calcium Carb/Magnesium Hydrox) 1 Each Tab.chew 1-2 Each PO PRN PRN Aspirin EC (Aspirin) 81 Mg Tablet.dr 81 Mg PO DAILY Zinc 50 Mg Tablet 50 Mg PO DAILY Vitamin C (Ascorbic Acid) 500 Mg Tab.chew 1,000 Mg PO DAILY Vitamin D3 (Cholecalciferol (Vitamin D3)) 25 Mcg Capsule 25 Mcg PO DAILY Furosemide 20 Mg Tablet 20 Mg PO DAILY Lisinopril 40 Mg Tablet 40 Mg PO DAILY Amlodipine Besylate 10 Mg Tablet 10 Mg PO HS Acid Manager Office (FAMOTIDINE) (Famotidine) 20 Mg Tablet 20 Mg PO BID Advair 250-50 Diskus (Fluticasone/Salmeterol) 1 Each Blst.w.dev 1 Each IH BID Assessment/Pt Instructions Swing bed Discharge Planning: <30 minutes discharge planning Discharge Physical Examination Vital Signs Vital Signs Date Time Temp Pulse Resp B/P (MAP) Pulse Ox O2 Delivery O2 Flow Rate FiO2 08/01/20 08:10 36.3 86 20 130/91 (104) 93 Nasal Cannula 2.00 07/31/20 08:18 28 General Appearance: No Apparent Distress, WD/WN, Chronically ill Respiratory: Lungs Clear Cardiovascular: Regular Rate, Rhythm Allergies: Coded Allergies: No Known Drug Allergies (Unverified , 04/01/20) Discharge Summary Date of Admission Jul 26, 2020 at 14:51 Date of Discharge Discharge Date: Aug 01, 2020 Admission Diagnosis Shortness of breath Covid positive-07/14/2020- will d/c isolation- discussed with Rubén- TWAN Ascites possible carcinomatosis probable secondary to bladder cancer Elevated liver function tests Plan to consult Dr. Gloria, consider paracentesis for further evaluation, bone scan for elevated alk phos - consult DR. Thomason Discharge Diagnosis Oncology consultation Check labs in am Prognosis guarded (1) Ascites (2) Diarrhea Status: Acute Qualifiers: Qualified Codes: R19.7 - Diarrhea, unspecified (3) Decreased oral intake Status: Acute (4) Hypovolemia (5) Weakness Status: Acute (6) Bladder cancer Status: Acute Qualifiers: Qualified Codes: C67.9 - Malignant neoplasm of bladder, unspecified Clinical Quality Measures DVT/VTE Risk/Contraindication: Risk Factor Score Per Nursin RFS Level Per Nursing on Admit: 4+=Very High HENRY PERKINS DO Aug 01, 2020 11:44
[2020-08-04] MEDS ORDERED: PANT40TA52 PO (09:50)
== END 2020-08-01 11:58 | disposition swing bed (61) | DRG 442 ==
LOC: EDUNIT# 12:12 → ER 12:13 → 4TH 14:51
PROVIDERS: ADMIT Internal Medicine; ATTEND Internal Medicine
PROC: 0W9G3ZX Drainage of Peritoneal Cavity, Percutaneous Approach, Diagnostic (ICD-10-PCS; principal; 2020-07-27)
DX: K71.10 Toxic liver disease with hepatic necrosis, without coma (principal); R18.0 Malignant ascites; K76.0 Fatty (change of) liver, not elsewhere classified; I10 Essential (primary) hypertension; J43.9 Emphysema, unspecified; K21.9 Gastro-esophageal reflux disease without esophagitis; M19.91 Primary osteoarthritis, unspecified site; T45.1X5A Adverse effect of antineoplastic and immunosuppressive drugs, initial encounter; M10.9 Gout, unspecified; R09.02 Hypoxemia; Z86.19 Personal history of other infectious and parasitic diseases; Z92.21 Personal history of antineoplastic chemotherapy; Z85.51 Personal history of malignant neoplasm of bladder; Z87.891 Personal history of nicotine dependence
CPT/HCPCS: 36415; 71045; 71275; 74177; 78306; 80053; 81000; 82945; 83605; 83615; 84145; 84157; 85007; 85025; 85027; 85379; 85610; 85730; 86141; 87040; 87070; 87088; 87205; 88112; 88305; 89051; 94640; 94664; 94760; 96374

== ENCOUNTER 2020-08-01 10:47 | Inpatient (IN) | payer MEDICARE ==
[~2020-08-01] VITALS: Ht 167 cm; Wt 78.0 kg
[~2020-08-01 10:47] MED LIST changes: +ASCO500T71 PO; +ASPI-1238 PO; +CALC-781 PO; +CHOL10007 PO; +FURO20TA4 PO; +ZINC50TA58 PO
[2020-08-01] MEDS ORDERED: LOPERAMIDE 2 MG (IMODIUM) TABLET PO PRN (12:15)
[2020-08-01] MEDS ORDERED: ENOXAPARIN 40 MG/0.4 ML (LOVENOX) SYR SQ SCH (12:15)
[2020-08-01] MEDS ORDERED: CALCIUM CARBONATE 500 MG (TUMS) TAB.CHEW PO PRN (12:15)
[2020-08-01] MEDS ORDERED: ONDANSETRON 4 MG/2 ML (SDV) Z0FRAN IV PRN (12:15)
[2020-08-01] MEDS ORDERED: ACETAMINOPHEN 500 MG TAB (TYLENOL) PO PRN (12:15)
[2020-08-01] MEDS ORDERED: CHOLESTYRAMINE 4 GM (QUESTRAN LITE, PREVALITE) PKT PO PRN (12:15)
[2020-08-01] MEDS ORDERED: HYOSCYAMINE 0.125 MG (LEVSIN) TAB PO PRN (12:15)
[2020-08-01] MEDS ORDERED: RT-ALBUTEROL INHALER HFA (VENTOLIN HFA) 18 GM IH PRN (12:45)
--- NOTE | 2020-08-01 12:59 | NUR ---
Admission Drug Regimen Review Completed: Date: 08/01/20 Time: 1300 Physician Notified: HENRY PERKINS DO Date: 08/01/20 Time: 1300 Issue Identified; Action Plan to Resolve and Any Action Taken: PRN Albuterol nebulizer and Advair inhaler both did not carry over to the swing bed account from the acute account. Contacted Dr. Perkins and she wants both to be continued. Entered back into the system. No further interventions noted to be needed at this time.
--- NOTE | 2020-08-01 13:24 | Progress Note - Surgery ---
Subjective Date Seen by a Provider: Aug 01, 2020 Time Seen by a Provider: 11:49 Subjective/Events-last exam Patient sitting in bed. Abdomen feeling okay. No shortness of breath. NPO currently. Denies n/v fever sweats chills shortness of breath or chest pain. Objective Exam Capillary Refill : General Appearance: WD/WN HEENT: PERRL/EOMI, Normal ENT Inspection Neck: Normal Inspection, Non Tender Respiratory: Chest Non Tender, No Accessory Muscle Use, No Respiratory Distress Cardiovascular: Regular Rate, Rhythm, No JVD Gastrointestinal: non tender, soft, distended (fluid wave) Extremity: Normal Range of Motion, Non Tender Neurologic/Psychiatric: Alert, Oriented x3, No Motor/Sensory Deficits, Normal Mood/Affect, fisher crab II-XII Norm as Tested Skin: Normal Color, Warm/Dry Lymphatic: No Adenopathy Assessment/Plan Assessment/Plan Assessment/Plan bladder cancer abdominal ascites possible carcinomatosis Recent Covid-[address] Thomason who would like diagnostic laparoscopy done to further evaluate ct findings patient with ascites could place pleur-x catheter at same time Discussed with Dr. Gaviria who would like him to get a litte stronger before proceeding with surgery. Start diet back Will sign off, please call when patient ready or if needed. Clinical Quality Measures DVT/VTE Risk/Contraindication: Risk Factor Score Per Nursin FELIPA THOMPSON DO Aug 01, 2020 13:24
--- NOTE | 2020-08-01 13:31 | NUR ---
GALO WOLF admitted to swing bed status to room 412-1, with an admitting diagnosis of SWB , on 08/01/20 from acute inpatient status. Therapy to evaluate patient for activity needs. GALO WOLF and/or family introduced to surroundings, call light, bed controls, phone, TV, temperature control, lights, meal times, smoking policy, visitor policy, side rail policy, bathrooms, and showers. Patient rights given to patient in the handbook.. GALO WOLF and/or family member verbalized understanding that [facility] is not responsible for the loss or damage to any personal effects or valuables that are kept in the patients possession during their hospitalization. GALO WOLF and/or family verbalizes understanding of the Interdisciplinary Patient Education. Patient and/or family were informed about the Rapid Response Team and its purpose. Call light with in reach and patient demonstrates understanding of how to use. GALO WOLF reports no further needs at this time.
--- NOTE | 2020-08-01 13:57 | Physical Therapy Evaluation ---
PT Evaluation-General Medical Diagnosis Admission Date Aug 01, 2020 at 12:08 Medical Diagnosis: Covid 19 Onset Date: Aug 01, 2020 Therapy Diagnosis Therapy Diagnosis: debility Referral Physician: Khadra Medical History Pertinent Medical History: COPD, HTN Additional Medical History bladder cancer Current History SWB status secondary to c/o covid 19 Reviewed History: Yes Social History Home: Single Level Current Living Status: Spouse Entry Into Home: Stairs With Railing PT Steps Into Home: 2 Prior Prior Level of Function SCALE: Activities may be completed with or without assistive devices. 8-Sxctoxxmwv-mqqwfwg completes the activity by him/herself with no assistance from a helper. 5-Set-up or Clean-up Assistance-helper sets up or cleans up; patient completes activity. [place] assists only prior to or following the activity. 4-Supervision or Touching Assistance-helper provides verbal cues and/or touching/steadying and/or contact guard assistance as patient completes activity. Assistance may be provided throughout the activity or intermittently. 3-Partial/Moderate Assistance-helper does LESS THAN HALF the effort. [place] lifts, holds or supports trunk or limbs, but provides less than half the effort. 2-Substantial/Maximal Assistance-helper does MORE THAN HALF the effort. [place] lifts or holds trunk or limbs and provides more than half the effort. 2-Wstazgznx-eyioug does ALL the effort. Patient does none of the effort to complete the activity. Or, the assistance of 2 or more helpers is required for the patient to complete the activity. If activity was not attempted, code reason: 7-Patient Refused. 9-Not Applicable-not attempted and the patient did not perform the activity before the current illness, exacerbation or injury. 10-Not Attempted due to Environmental Limitations-(lack of equipment, weather restraints, etc.). 88-Not Attempted due to Medical Conditions or Safety Concerns. Bed Mobility: 6 Transfers (B,C,W/C): 6 Gait: 6 Stairs: 6 Indoor Mobility (Ambulation): Independent Stairs: Independent Prior Devices Use: None PT Evaluation-Current Subjective Patient is up independently in room. Agrees to PT. Objective Patient Orientation: Normal For Age Attachments: Oxygen (2L NC ) ROM/Strength ROM Lower Extremities bilateral LE WFL Strength Lower Extremities 4+/5 grossly bilateral LE Integumentary/Posture Integumentary refer to nursing notes Bowel Incontinence: No Bladder Incontinence: No Posture WFL Neuromuscular (Tone, Coordination, Reflexes) grossly intact Sensory Vision: Wears Glasses Hearing: Hearing Aid/Aides Transfers Roll Left & Right (QC): 6 Sit to Lying (QC): 6 Lying to Sitting/Side of Bed(Q: 6 Sit to Stand (QC): 6 Chair/Ygj-jo-Crdig Xfer(QC): 6 Toilet Transfer (QC): 6 Car Transfer (QC): 6 Gait Does the Patient Walk?: Yes Mode of Locomotion: Walk Anticipated Mode of Locomotion: Walk Walk 10 feet (QC): 6 Walk 50 ft with 2 Turns(QC): 6 Walk 150 ft (QC): 6 Walking 10ft/uneven surface-QC: 6 Distance: 500' Gait Assistive Device: None Comments/Gait Description steady, safe and functional with no deviation Wheelchair Training Wheel 50 ft with 2 turns (QC): 9 Wheel 150 ft (QC): 9 Stairs #of Steps: 14 1 Step (curb) (QC): 6 4 Steps (QC): 6 12 Steps (QC): 6 Balance Sitting Static: Normal Sitting Dynamic: Normal Standing Static: Normal Standing Dynamic: Normal Picking up an Object (QC): 6 Assessment/Needs 69 y.o. male, will be seen x 3 sessions to ensure functional mobility remains at independent PLOF safely to home. Rehab Potential: Fair PT Portfolio Analyst Goals Snf Goals PT Snf Goals Time Frame: Aug 04, 2020 Roll Left & Right (QC): 6 Sit to Lying (QC): 6 Lying-Sitting on Side/Bed(QC): 6 Sit to Stand (QC): 6 Chair/Vyy-su-Mvfcl Xfer(QC): 6 Toilet Transfer (QC): 6 Car Transfer (QC): 6 Does the Patient Walk: Yes Walk 10 feet (QC): 6 Walk 50ft with 2 Turns (QC): 6 Walk 150 ft (QC): 6 Walking 10ft on Uneven Surface: 6 1 Step (curb) (QC): 6 4 Steps (QC): 6 12 Steps (QC): 6 Picking up an Object (QC): 6 Does the Pt use WC or Scooter?: No Wheel 50 feet with 2 turns (QC: 9 Type: N/A Wheel 150 feet: 9 Type: N/A PT Plan Treatment/Plan Treatment Plan: Continue Plan of Care Treatment Plan: Education, Functional Activity [place], Functional Strength, Gait, Safety, Therapeutic Exercise, Transfers Treatment Duration: Aug 04, 2020 Frequency: 3 times per week Estimated Hrs Per Day: .5 hour per day Patient and/or Family Agrees t: Yes Time/GCodes Time In: 1230 Time Out: 1255 Total Billed Treatment Time: 25 Total Billed Treatment 1 visit EVModC 10 min FA 15 min JUAN GELLER PT Aug 01, 2020 13:57
--- NOTE | 2020-08-01 14:17 | NUR ---
RD ASSESSMENT PMHx: HTN; GERD; gout; CA(bladder); PT INTERACTION: Pt was awake and pleasant during nutrition assessment for LOS. Pt states current appetite is "getting better." Note pt currently NPO, per chart review. Note prior to NPO status, avg PO intake 70% x3d, per chart review. Pt states following a regular diet at home, and has no issues with chewing/swallowing food. Pt states some recent issues with diarrhea, and chronic issues with nausea at times. Note last BM was 08/01, and pt not currently on bowel regimen per chart review. Pt states recent wt gain due to fluid buildup. Note recent 13# wt gain x5mon, per chart review. ABNORMAL NUTRITION-RELATED LAB VALUES LOW: Ca 7.2; Pro 4.3; alb 1.7; HIGH: Cl 111; BUN 53; cr 1.43; AST 56; alkphos 675; Est. kcal needs: 2121-0358 kcal | 20-25 kcal/kg Est. Pro needs: 78-94 g Pro | 1.2-1.4 g Pro/kg PES STATEMENT: Inadequate oral intake (NI-2.1) related to loss of appetite, NPO status, nausea, and diarrhea, as evidenced by pt interview, chart review, and avg PO intake 70% x3d (prior to NPO status). INTERVENTION: Note pt currently NPO, per chart review. Would recommend diet advancement when medically able and as tolerated. Pt may benefit from nutrition supplementation if PO intake declines. Will continue to follow and reassess as pt needs, intake, and status change. Cruz Lee, MS RD LD
--- NOTE | 2020-08-01 14:25 | Occupational Therapy Eval ---
OT Evaluation-General/PLF Medical Diagnosis Admission Date Aug 01, 2020 at 12:08 Medical Diagnosis: Covid 19 Onset Date: Aug 01, 2020 Therapy Diagnosis Therapy Diagnosis: Decreased ADL status Referral Physician: Khadra Referral Reason: Activity Tolerance, Self Care, Evaluation/Treatment, Strengthening/ROM Medical History Pertinent Medical History: COPD, HTN Additional Medical History bladder ca, arthritis, gout, GERD, COPD Current History Pt dx with COVID 07/13 (exp sx 07/12). Demonstrated swelling in BLE prior. H/o bladder ca with chemo (states swelling began post-chemo) Reviewed History: Yes Social History Home: Single Level Current Living Status: Spouse Entry Into Home: Stairs With Railing Steps Into Home: 2 ADL-Prior Level of Function SCALE: Activities may be completed with or without assistive devices. 8-Hsghunuujv-urikmgu completes the activity by him/herself with no assistance from a helper. 5-Set-up or Clean-up Assistance-helper sets up or cleans up; patient completes activity. [place] assists only prior to or following the activity. 4-Supervision or Touching Assistance-helper provides verbal cues and/or touching/steadying and/or contact guard assistance as patient completes activity. Assistance may be provided throughout the activity or intermittently. 3-Partial/Moderate Assistance-helper does LESS THAN HALF the effort. [place] lifts, holds or supports trunk or limbs, but provides less than half the effort. 2-Substantial/Maximal Assistance-helper does MORE THAN HALF the effort. [place] lifts or holds trunk or limbs and provides more than half the effort. 5-Kakoremjs-hlsxhw does ALL the effort. Patient does none of the effort to complete the activity. Or, the assistance of 2 or more helpers is required for the patient to complete the activity. If activity was not attempted, code reason: 7-Patient Refused. 9-Not Applicable-not attempted and the patient did not perform the activity before the current illness, exacerbation or injury. 10-Not Attempted due to Environmental Limitations-(lack of equipment, weather restraints, etc.). 88-Not Attempted due to Medical Conditions or Safety Concerns. ADL PLOF Comments IND without use of AD/AE Self Care: Independent Functional Cognition: Independent DME/Equipment: Bath Chair, Grab Bars, Shower DME/Equipment Comments none Occupation: retired examiner of [employer] [address] Self: Yes OT Current Status Subjective Pt in bathroom upon entry. Pt up ad narinder. Pt alert/ oriented. Agrees to tx, sta marge has completed all ADLs with IND on this date. Mental Status/Objective Patient Orientation: Person, Place, Situation, Normal For Age Attachments: Oxygen (2L) Current Glasses/Contacts: Yes Hearing Aids: Yes Dentures/Partials: No Hand Dominance: Right (utilizes L to write) Upper Extremity ROM WFL BUE Upper Extremity Coordination WFL BUE Upper Extremity Sensation WFL BUE Upper Extremity Strength WFL BUE (4/5) Edema: pitting bilaterally (dorsum of feet proximally to knees) ADL-Treatment Eating (QC): 6 Oral Hygiene (QC): 6 Shower/Bathe Self (QC): 5 (s/u for IV covering.) Upper Body Dressing (QC): 6 Lower Body Dressing (QC): 6 (states got from closest and donned in room.) On/Off Footwear (QC): 6 Toileting Hygiene (QC): 6 (Was up at bathroom at entry, completed all with IND with no AD) Other Treatments Pt up in room. Post-toileting/ hand hygiene, pt sits in recliner, slight SOB. Manages 02 cord well. Did not utilize 02 at home, though has COPD emergency inhaler. Is introduced to OT/ role/ SWB status and therapy role. Pt agrees. Pt provides hx: is currently intubated with COVID, able to see her. Pt states BLE swelling began prior to COVID dx, relates to bladder ca per pt. Pt is educated on elevation and calf pumps to increase fluid mobility. Pt nods in understanding. Pt completes UE stance/ balance/ strengthening task for 5 min in stance. Slight SOB. Returns to chair. Pt doffs/ dons socks with IND, breaths throughout forward trunk flexion. No SOB in sit. Pt educated on similar exercises to complete in chair/ in room. Pt left with all needs met, call light in reach, pt's visitor present. Education OT Patient Education: Correct positioning, Exercise program, Home exercise program, Progress toward Goal/Update tx plan, Purpose of tx/functional activities Teaching Recipient: Patient Teaching Methods: Demonstration, Discussion Response to Teaching: Verbalize Understanding, Return Demonstration OT Boot And Saddle Repair Person Goals Boot And Saddle Repair Person Goals Time Frame: Aug 08, 2020 Eating (QC): 6 Oral Hygiene (QC): 6 Toileting Hygiene (QC): 6 Shower/Bathe Self (QC): 6 Upper Body Dressing (QC): 6 Lower Body Dressing (QC): 6 On/Off Footwear (QC): 6 Additional Goals: 1-Demonstrate ADL Tasks, 2-Verbalize Understanding, 3- ImproveStrength/[place] 1=Demonstrate adherence to instructed precautions during ADL tasks. 2=Patient will verbalize/demonstrate understanding of assistive devices/modifications for ADL. 3=Patient will improve strength/tolerance for activity to enable patient to perform ADL's. OT Education/Plan Problem List/Assessment Assessment: Decreased Activ Tolerance, Edema, Impaired I ADL's Discharge Recommendations Plan/Recommendations: Continue POC Therapy Discharge Recommendati: Intermittent Supervision, Home & Family Treatment Plan/Plan of Care Treatment,Training & Education: Yes Patient would benefit from OT for education, treatment and training to promote independence in ADL's, mobility, safety and/or upper extremity function for ADL's. Plan of Care: ADL Retraining, Functional Mobility, UE Funct Exercise/Act Treatment Duration: Aug 08, 2020 Frequency: 3 times per week Estimated Hrs Per Day: .25 hour per day Agreement: Yes Rehab Potential: Fair Time/GCodes Start Time: 13:50 Stop Time: 14:15 Total Time Billed (hr/min): 25 Billed Treatment Time 1, EVM (10), EX (15)= 25 Pt to be seen 3x to ensure continued strength/ ADL status/ breathing techniques/ fx activity tolerance, etc. ANDRY MERINO OTR Aug 01, 2020 14:25
--- NOTE | 2020-08-01 14:26 | NUR ---
patient off floor to see in ICU at this time with Dr Vann
[2020-08-01 17:35] VITALS: BP 114/80
[2020-08-01] MEDS: ENOXAPARIN 40 MG/0.4 ML (LOVENOX) SYR SQ SCH (18:23)
[2020-08-01] MEDS: RT-ALBUTEROL INHALER HFA (VENTOLIN HFA) 18 GM IH SCH (18:30)
[2020-08-01] MEDS: ADVAIR HFA 115/21 MCG INHALER 8 GM IH SCH (18:30)
--- NOTE | 2020-08-01 18:44 | NUR ---
Support provided after the pt returned from visiting his in the hospital. He shared about his conversation with the doctor to make his a DNR. Web Marketing Specialist facilitated sharing of feelings, which included expressed gratitude for life blessings, love for his family, and appreciation for getting to celebrate 50 years of marriage earlier this year. Pt describes strong, supportive relationships with his son and daughter. Pt states he grew up [employer], and that after 8 years of marriage, he and his were in the [employer] because his wanted to participate in [employer]. The pt participates in open communion, and continues to practice wong rotted in both [employer] and [employer] traditions. He requested prayer and expressed gratitude for the compassion of the staff.
[2020-08-02 05:43] VITALS: BP 107/74
--- NOTE | 2020-08-02 06:50 | Progress Note - Hospitalist ---
Subjective HPI/CC On Admission Date Seen by Provider: Aug 02, 2020 Time Seen by Provider: 11:00 Subjective/Events-last exam Wrapping legs with wide UBALDO wraps today again Ambulated with PT and did pretty well Still maintained on O2 from COVID-19 PNA Patient appears more comfy Creatinine back to normal now HLIVF yesterday and IV went bad so will leave out Decadron x 7 doses so will DC today Review of Systems General: Fatigue Cardiovascular: Edema Objective Exam Vital Signs Vital Signs Date Time Temp Pulse Resp B/P (MAP) Pulse Ox O2 Delivery O2 Flow Rate FiO2 08/02/20 07:31 Nasal Cannula 2.00 08/02/20 07:21 94 08/02/20 05:43 36.4 82 17 107/74 (85) Capillary Refill : Less Than 3 Seconds General Appearance: No Apparent Distress, WD/WN, Chronically ill Respiratory: Chest Non Tender, Lungs Clear, Normal Breath Sounds, No Accessory Muscle Use, No Respiratory Distress Cardiovascular: Regular Rate, Rhythm, No Gallop, No JVD, No Murmur, Normal Peripheral Pulses Extremity: Pedal Edema Neurologic/Psychiatric: Alert, Oriented x3, No Motor/Sensory Deficits, Normal Mood/Affect Results/Procedures Lab Laboratory Tests 08/02/20 07:30 Patient resulted labs reviewed. 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
[2020-08-02] MEDS: RT-ALBUTEROL INHALER HFA (VENTOLIN HFA) 18 GM IH SCH ×2 (07:19→19:24)
[2020-08-02] MEDS: ADVAIR HFA 115/21 MCG INHALER 8 GM IH SCH ×2 (07:19→19:23)
[2020-08-02 08:04] LABS: HEMOGLOBIN 14.4 g/dL (13.3-17.7); MEAN PLATELET VOLUME 12.6 fL (9.0-12.2); WHITE BLOOD COUNT 9.6 10^3/uL (4.3-11.0)
[2020-08-02 08:29] LABS: ALANINE AMINOTRANSFERASE 46 U/L (0-55); ALBUMIN 1.7 GM/DL (3.2-4.5); ALKALINE PHOSPHATASE 709 U/L (40-136); BILIRUBIN,TOTAL 0.9 MG/DL (0.1-1.0); BUN/CREATININE RATIO 39; CALCIUM 7.4 MG/DL (8.5-10.1); CARBON DIOXIDE 18 MMOL/L (21-32); CHLORIDE 110 MMOL/L (98-107); CREATININE SERUM 1.08 MG/DL (0.60-1.30); GFR ESTIMATED > 60; GLUCOSE 76 MG/DL (70-105); POTASSIUM 4.2 MMOL/L (3.6-5.0); SODIUM 138 MMOL/L (135-145); TOTAL PROTEIN 4.3 GM/DL (6.4-8.2)
[2020-08-02] MEDS ORDERED: FAMOTIDINE 20 MG (PEPCID) TABLET PO SCH (09:00)
[2020-08-02] MEDS: amLODIPine 10 MG (NORVASC) TAB PO SCH (09:59)
[2020-08-02] MEDS: lisINopril 40 MG (PRINIVIL) TABLET PO SCH (09:59)
[2020-08-02] MEDS: PANTOPRAZOLE 40 MG (PROTONIX) TAB PO SCH (10:00)
[2020-08-02] MEDS: FAMOTIDINE 20 MG (PEPCID) TABLET PO SCH ×2 (10:01→20:33)
--- NOTE | 2020-08-02 10:40 | Progress Note - Surgery ---
LEE JUSTICE MED STUDENT 08/02/20 1040: Subjective Date Seen by a Provider: Aug 02, 2020 Time Seen by a Provider: 10:20 Subjective/Events-last exam Pt states he has fluid in his abdomen but Dr. Prieto wanted to wait until pt's health improved. Pt states he feels about the same as yesterday and denies pain. Pt is tolerating food and denies N/V. Pt denies difficulty w/ BM or urination. Last BM was this morning. Pt is walking around ok but does get SOB if walking too far d/t emphysema. Pt has a slight cough d/t residual COVID and emphysema. P t states he has had leg edema that hasn't gone down, even w/ elevation and prior use of compression socks. Review of Systems General: No Chills, No Night Sweats HEENT: No Head Aches, No Visual Changes, No Eye Pain, No Ear Pain Pulmonary: Dyspnea (d/t emphysema and covid), Cough (mild d/t emphysema and covid sx) Cardiovascular: No: Chest Pain Gastrointestinal: No: Nausea, Vomiting, Abdominal Pain Musculoskeletal: No: arm pain, leg pain Neurological: No: Weakness, Numbness, Change in speech Objective Exam Vital Signs Date Time Temp Pulse Resp B/P (MAP) Pulse Ox O2 Delivery O2 Flow Rate FiO2 08/02/20 07:31 Nasal Cannula 2.00 08/02/20 07:21 94 Nasal Cannula 2.00 08/02/20 05:43 36.4 82 17 107/74 (85) 93 Nasal Cannula 2.00 08/01/20 21:15 95 Nasal Cannula 2.00 08/01/20 18:32 95 Nasal Cannula 2.00 08/01/20 18:31 95 Nasal Cannula 2.00 08/01/20 17:35 88 22 114/80 (91) 95 Nasal Cannula 2.00 I & O 08/02/20 07:00 Intake Total 1360 ml Balance 1360 ml Capillary Refill : Less Than 3 Seconds General Appearance: No Apparent Distress, WD/WN HEENT: PERRL/EOMI, Normal ENT Inspection Neck: Normal Inspection, Non Tender Respiratory: Chest Non Tender, Lungs Clear, No Accessory Muscle Use, No Respiratory Distress Cardiovascular: Regular Rate, Rhythm Gastrointestinal: non tender, distended Extremity: Normal Range of Motion, Non Tender, No Calf Tenderness, Pedal Edema (pitting and calf edema) Neurologic/Psychiatric: Alert, Oriented x3, Normal Mood/Affect Skin: Normal Color, Warm/Dry Results Lab Laboratory Tests 08/02/20 07:30: White Blood Count 9.6, Red Blood Count 4.75, Hemoglobin 14.4, Hematocrit 42, Mean Corpuscular Volume 89, Mean Corpuscular Hemoglobin 30, Mean Corpuscular Hemoglobin Concent 34, Red Cell Distribution Width 17.9H, Platelet Count 334, Mean Platelet Volume 12.6H, Sodium Level 138, Potassium Level 4.2, Chloride Level 110H, Carbon Dioxide Level 18L, Anion Gap 10, Blood Urea Nitrogen 42H, Creatinine 1.08, Estimat Glomerular Filtration Rate > 60, BUN/Creatinine Ratio 39, Glucose Level 76, Calcium Level 7.4L, Corrected Calcium 9.2, Total Bilirubin 0.9, Aspartate Amino Transf (AST/SGOT) 56H, Alanine Aminotransferase (ALT/SGPT) 46, Alkaline Phosphatase 709H, Total Protein 4.3L, Albumin 1.7L Assessment/Plan Assessment/Plan Assessment/Plan bladder cancer abdominal ascites possible carcinomatosis Recent Covid-19 - continue diet and PT/OT. Delay surgery until health and strength improves. Clinical Quality Measures DVT/VTE Risk/Contraindication: Risk Factor Score Per Nursin BENITO LIZAMA DO 08/02/20 1104: Subjective Time Seen by a Provider: 10:32 Subjective/Events-last exam Pt seen and examined, no new complaints. States he is eating well; "I feel like I'm eating like a pig". Review of Systems General: No Chills, No Night Sweats HEENT: No Head Aches, No Visual Changes Pulmonary: Dyspnea (d/t emphysema and covid), Cough (mild d/t emphysema and covid sx) Cardiovascular: No: Chest Pain Gastrointestinal: No: Nausea, Vomiting, Abdominal Pain Objective Exam General Appearance: No Apparent Distress, WD/WN HEENT: PERRL/EOMI, Moist Mucous Membranes Respiratory: Chest Non Tender, Lungs Clear, No Accessory Muscle Use, No Respiratory Distress Gastrointestinal: non tender, distended (secondary to ascites) Extremity: Pedal Edema (pitting and calf edema) Assessment/Plan Assessment/Plan Assessment/Plan Bladder CA, Ascites, Possible carcinomatosis Continue PO and increase protein, PT/OT. Will probably plan diagnostic laparoscopy as an outpt. Supervisory-Addendum Brief Verification & Attestation Participated in pt care: history, MDM, physical Personally performed: exam, history, MDM Care discussed with: Medical Student Procedures: n/a Verification and Attestation of Medical Student E/M Service A medical student performed and documented this service. I then reviewed and verified all information documented by the medical student and made modifications to such information, when appropriate. I personally performed a physical exam, medical decision making and then discussed any differences between the notes and made revisions as necessary to create one note. Benito Lizama , 08/02/20 , 11:04 [employer] STUDENT Aug 02, 2020 10:40 BENITO LIZAMA DO Aug 02, 2020 11:04
--- NOTE | 2020-08-02 11:28 | Physical Therapy Daily Note ---
PT Daily Note-Current Subjective Pt presents sitting up in chair upon arrival to room, agreeable to therapy treatment at this time. Pt denies any pain during session Appearance Following session, pt up in chair with call light and tray within reach. All needs met at the end of session Mental Status Patient Orientation: Person, Place, Situation Attachments: Oxygen (2L) Transfers SCALE: Activities may be completed with or without assistive devices. 5-Ktrnczaecz-tukxlxj completes the activity by him/herself with no assistance from a helper. 5-Set-up or Clean-up Assistance-helper sets up or cleans up; patient completes activity. Donora assists only prior to or following the activity. 4-Supervision or Touching Assistance-helper provides verbal cues and/or touching/steadying and/or contact guard assistance as patient completes activity. Assistance may be provided throughout the activity or intermittently. 3-Partial/Moderate Assistance-helper does LESS THAN HALF the effort. Donora lifts, holds or supports trunk or limbs, but provides less than half the effort. 2-Substantial/Maximal Assistance-helper does MORE THAN HALF the effort. Donora lifts or holds trunk or limbs and provides more than half the effort. 7-Wdjuvjdzz-ouqcnc does ALL the effort. Patient does none of the effort to complete the activity. Or, the assistance of 2 or more helpers is required for the patient to complete the activity. If activity was not attempted, code reason: 7-Patient Refused. 9-Not Applicable-not attempted and the patient did not perform the activity before the current illness, exacerbation or injury. 10-Not Attempted due to Environmental Limitations-(lack of equipment, weather restraints, etc.). 88-Not Attempted due to Medical Conditions or Safety Concerns. Sit to Stand (QC): 6 Gait Training Distance: 600' Walk 10 feet (QC): 6 Walk 50 ft with 2 Turns(QC): 6 Walk 150 ft (QC): 6 Gait Assistive Device: None Pt ambulates with steady gait pattern, no deviations of LOB during long gait sequence. Pt does require 1 standing rest break after 400' ambulation 2/2 shortness of air; although, pt able to carry on conversation throughout standing break. Assessment Current Status: Good Progress Pt able to improve distance before requiring a rest break this date, will continue to progress activity tolerance to ensure safety upon pt return home. PT Nursing Home Goals Cooker Casing Goals PT Nursing Home Goals Time Frame: Aug 04, 2020 Roll Left & Right (QC): 6 Sit to Lying (QC): 6 Lying-Sitting on Side/Bed(QC): 6 Sit to Stand (QC): 6 Chair/Ihf-ie-Bdajr Xfer(QC): 6 Toilet Transfer (QC): 6 Car Transfer (QC): 6 Does the Patient Walk: Yes Walk 10 feet (QC): 6 Walk 50ft with 2 Turns (QC): 6 Walk 150 ft (QC): 6 Walking 10ft on Uneven Surface: 6 1 Step (curb) (QC): 6 4 Steps (QC): 6 12 Steps (QC): 6 Picking up an Object (QC): 6 Does the Pt use WC or Scooter?: No Wheel 50 feet with 2 turns (QC: 9 Type: N/A Wheel 150 feet: 9 Type: N/A PT Plan Problem List Problem List: Activity Tolerance, Functional Strength, Safety, Balance, Gait, Transfer, Bed Mobility, ROM Treatment/Plan Treatment Plan: Continue Plan of Care Treatment Plan: Education, Functional Activity Donavon, Functional Strength, Gait, Safety, Therapeutic Exercise, Transfers Treatment Duration: Aug 04, 2020 Frequency: 3 times per week Estimated Hrs Per Day: .5 hour per day Patient and/or Family Agrees t: Yes Time/GCodes Time In: 1055 Time Out: 1115 Total Billed Treatment 1 visit GT (20') SAMANTHA PEARSON PT Aug 02, 2020 11:28
[2020-08-02] MEDS: ENOXAPARIN 40 MG/0.4 ML (LOVENOX) SYR SQ SCH (17:59)
[2020-08-02 18:00] VITALS: BP 113/72
[2020-08-03 05:59] VITALS: BP 116/79
[2020-08-03 07:21] VITALS: BP 126/82
[2020-08-03] MEDS: ADVAIR HFA 115/21 MCG INHALER 8 GM IH SCH ×2 (07:27→20:43)
[2020-08-03] MEDS: RT-ALBUTEROL INHALER HFA (VENTOLIN HFA) 18 GM IH SCH ×2 (07:28→20:42)
[2020-08-03] MEDS: FAMOTIDINE 20 MG (PEPCID) TABLET PO SCH ×2 (08:31→20:20)
[2020-08-03] MEDS: lisINopril 40 MG (PRINIVIL) TABLET PO SCH (08:31)
[2020-08-03] MEDS: PANTOPRAZOLE 40 MG (PROTONIX) TAB PO SCH (08:31)
[2020-08-03] MEDS: amLODIPine 10 MG (NORVASC) TAB PO SCH (08:31)
--- NOTE | 2020-08-03 08:44 | Progress Note - Surgery ---
[employer]E [employer] MED STUDENT 08/03/20 0844: Subjective Date Seen by a Provider: Aug 03, 2020 Time Seen by a Provider: 07:10 Subjective/Events-last exam Pt states he's doing about the same as yesterday. Pt had BM this morning of normal consistency and denies troubles w/ urination. Pt is tolerating food and ambulation. Pt denies pain anywhere and feels that his swelling in his abdomen and legs are about the same as yesterday. Pt denies N/V/BARTLETT. Pt still has cough and SOB from emphysema and post covid sx. Review of Systems General: No Chills, No Night Sweats, No Fatigue HEENT: No Head Aches, No Visual Changes, No Eye Pain, No Ear Pain Pulmonary: Dyspnea (d/t covid and emphysema sx), Cough (d/t covid and emphysema sx) Cardiovascular: No: Chest Pain Gastrointestinal: Other (abdominal swelling); No: Nausea, Vomiting, Abdominal Pain Musculoskeletal: No: neck pain, arm pain, leg pain Neurological: No: Weakness, Numbness, Change in speech Objective Exam Vital Signs Date Time Temp Pulse Resp B/P (MAP) Pulse Ox O2 Delivery O2 Flow Rate FiO2 08/03/20 07:28 95 Nasal Cannula 2.00 08/03/20 07:28 Nasal Cannula 08/03/20 07:21 36.6 80 20 126/82 (97) 95 Nasal Cannula 2.00 08/03/20 05:59 36.8 65 18 116/79 (91) 95 Nasal Cannula 2.00 08/02/20 20:20 Nasal Cannula 2.00 08/02/20 19:27 Nasal Cannula 08/02/20 19:26 95 Nasal Cannula 2.00 08/02/20 18:00 36.7 56 20 113/72 (86) 97 Nasal Cannula 2.00 I & O 08/03/20 07:00 Intake Total 1220 ml Balance 1220 ml Capillary Refill : Less Than 3 Seconds General Appearance: No Apparent Distress, WD/WN, Chronically ill HEENT: PERRL/EOMI Neck: Non Tender, Supple Respiratory: Chest Non Tender, Lungs Clear, Normal Breath Sounds, No Accessory Muscle Use, No Respiratory Distress Cardiovascular: Regular Rate, Rhythm, No Murmur, Normal Peripheral Pulses Gastrointestinal: non tender, distended (secondary to ascites) Extremity: Normal Capillary Refill, No Calf Tenderness, Pedal Edema (calf and pedal edema bilateral) Neurologic/Psychiatric: Alert, Oriented x3, Normal Mood/Affect Skin: Normal Color, Warm/Dry Assessment/Plan Assessment/Plan Assessment/Plan ascites bladder ca - continue PO diet and ambulation. continue PT/OT. possible laparoscopy after health improves. Clinical Quality Measures DVT/VTE Risk/Contraindication: Risk Factor Score Per Nursin BENITO LIZAMA DO 08/03/20 1307: Subjective Time Seen by a Provider: 11:53 Subjective/Events-last exam Pt seen and examined, no new complaints. Review of Systems General: No Chills, No Night Sweats HEENT: No Head Aches, No Visual Changes Pulmonary: Dyspnea (d/t covid and emphysema sx), Cough (d/t covid and emphysema sx) Cardiovascular: No: Chest Pain Gastrointestinal: No: Nausea, Vomiting, Abdominal Pain Objective Exam General Appearance: No Apparent Distress, Chronically ill HEENT: PERRL/EOMI, Moist Mucous Membranes Respiratory: Lungs Clear, Normal Breath Sounds, No Accessory Muscle Use, No Respiratory Distress Cardiovascular: Regular Rate, Rhythm, No Murmur Gastrointestinal: non tender, distended (secondary to ascites) Assessment/Plan Assessment/Plan Assessment/Plan Ascites Bladder CA ??Carcinomatosis continue PO diet, ambulation, PT/OT, surgery planned for down the road. Supervisory-Addendum Brief Verification & Attestation Participated in pt care: history, MDM, physical Personally performed: exam, history, MDM Care discussed with: Medical Student Procedures: n/a Verification and Attestation of Medical Student E/M Service A medical student performed and documented this service. I then reviewed and verified all information documented by the medical student and made modifications to such information, when appropriate. I personally performed a physical exam, medical decision making and then discussed any differences between the notes and made revisions as necessary to create one note. Benito Lizama , 08/03/20 , 13:07 [employer] ST[employer]ENT Aug 03, 2020 08:44 BENITO LIZAMA DO Aug 03, 2020 13:07
--- NOTE | 2020-08-03 11:17 | Progress Note - Hospitalist ---
Subjective HPI/CC On Admission Date Seen by Provider: Aug 03, 2020 Time Seen by Provider: 11:30 Subjective/Events-last exam Patient doing well will be terminally extubated today Labs will be checked tomorrow Edema with wraps on Review of Systems General: Fatigue, Malaise Cardiovascular: Edema Objective Exam Vital Signs Vital Signs Date Time Temp Pulse Resp B/P (MAP) Pulse Ox O2 Delivery O2 Flow Rate FiO2 08/03/20 09:00 Nasal Cannula 2.00 08/03/20 07:28 95 08/03/20 07:21 36.6 80 20 126/82 (97) Capillary Refill : Less Than 3 Seconds General Appearance: No Apparent Distress, WD/WN, Chronically ill Respiratory: Chest Non Tender, Lungs Clear, Normal Breath Sounds, No Accessory Muscle Use, No Respiratory Distress Cardiovascular: Regular Rate, Rhythm, No Gallop, No JVD, No Murmur, Normal Peripheral Pulses Extremity: Pedal Edema Neurologic/Psychiatric: Alert, Oriented x3, No Motor/Sensory Deficits, Normal Mood/Affect Results/Procedures Lab Patient resulted labs reviewed. 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
[2020-08-03 17:10] VITALS: BP 97/66
[2020-08-03] MEDS: ENOXAPARIN 40 MG/0.4 ML (LOVENOX) SYR SQ SCH (17:25)
[2020-08-04 05:47] VITALS: BP 125/77
[2020-08-04 06:02] LABS: BASOPHILS # (AUTO) 0.1 10^3/uL (0.0-0.1); BASOPHILS % (AUTO) 1 % (0-10); EOSINOPHILS % (AUTO) 0 % (0-10); HEMATOCRIT 42 % (40-54); HEMOGLOBIN 14.2 g/dL (13.3-17.7); LYMPHOCYTES # (AUTO) 1.3 10^3/uL (1.0-4.0); LYMPHOCYTES % (AUTO) 14 % (12-44); MEAN CORPUSCULAR HEMOGLOBIN 30 pg (25-34); MEAN CORPUSCULAR HGB CONC 34 g/dL (32-36); MEAN CORPUSCULAR VOLUME 89 fL (80-99); MEAN PLATELET VOLUME 11.6 fL (9.0-12.2); MONOCYTES # (AUTO) 1.1 10^3/uL (0.0-1.0); MONOCYTES % (AUTO) 12 % (0-12); NEUTROPHILS # (AUTO) 6.4 10^3/uL (1.8-7.8); NEUTROPHILS % (AUTO) 69 % (42-75); PLATELET COUNT 334 10^3/uL (130-400); WHITE BLOOD COUNT 9.4 10^3/uL (4.3-11.0)
[2020-08-04 06:19] LABS: ALBUMIN 1.7 GM/DL (3.2-4.5)
[2020-08-04 06:20] LABS: CHLORIDE 110 MMOL/L (98-107); POTASSIUM 4.1 MMOL/L (3.6-5.0); SODIUM 135 MMOL/L (135-145)
[2020-08-04 06:21] LABS: CALCIUM 7.1 MG/DL (8.5-10.1)
[2020-08-04 06:22] LABS: GLUCOSE 83 MG/DL (70-105); TOTAL PROTEIN 4.2 GM/DL (6.4-8.2)
[2020-08-04 06:23] LABS: CARBON DIOXIDE 19 MMOL/L (21-32)
[2020-08-04 06:24] LABS: BILIRUBIN,TOTAL 0.7 MG/DL (0.1-1.0)
[2020-08-04 06:25] LABS: ALKALINE PHOSPHATASE 675 U/L (40-136)
[2020-08-04 06:26] LABS: CREATININE SERUM 0.99 MG/DL (0.60-1.30); GFR ESTIMATED > 60
[2020-08-04 06:27] LABS: BUN/CREATININE RATIO 32
[2020-08-04 06:29] LABS: ALANINE AMINOTRANSFERASE 47 U/L (0-55)
[2020-08-04] MEDS: lisINopril 40 MG (PRINIVIL) TABLET PO SCH (08:25)
[2020-08-04] MEDS: amLODIPine 10 MG (NORVASC) TAB PO SCH (08:25)
[2020-08-04] MEDS: FAMOTIDINE 20 MG (PEPCID) TABLET PO SCH (08:25)
[2020-08-04] MEDS: PANTOPRAZOLE 40 MG (PROTONIX) TAB PO SCH (08:25)
[2020-08-04] MEDS ORDERED: FLU QUAD HIGH DOSE 240 MCG/0.7 ML 2020-21 (FLUZONE) IM ONE (08:45)
--- NOTE | 2020-08-04 09:12 | Therapy Team Discharge Summary ---
Therapy Discharge Summary Discharge Recommendations Date of Discharge Physical Therapy Patient seen x 2 sessions to ensure functional mobility remained independent safely. Patient attained all functional goals and will dismiss to home this week. Patient is currently up independently in room without difficulty. Occupational Therapy Decreased Activ Tolerance, Edema, Impaired I ADL's PT Label Maker Goals Label Maker Goals PT Mcfp Goals Time Frame: Aug 04, 2020 Roll Left to Right (QC): 6 (met 08/01/20) Sit to Lying (QC): 6 (met 08/01/20) Lying-Sitting on Side/Bed(QC): 6 (met 08/01/20) Sit to Stand (QC): 6 (met 08/01/20) Chair/Mfp-mn-Wugex Xfer(QC): 6 (met 08/01/20) Car Transfer (QC): 6 (met 08/01/20) Does the Patient Walk: Yes Walk 10 feet (QC): 6 (met 08/01/20) Walk 10ft-Uneven Surface(QC): 6 (met 08/01/20) Walk 50ft with 2 Turns (QC): 6 (met 08/01/20) Walk 150 ft (QC): 6 (met 08/01/20) Does the Pt use WC or Scooter?: No Wheel 50 feet with 2 turns (QC: 9 1 Step (curb) (QC): 6 (met 08/01/20) 4 Steps (QC): 6 (met 08/01/20) 12 Steps (QC): 6 (met 08/01/20) Picking up an Object (QC): 6 (met 08/01/20) OT Mcfp Goals Mcfp Goals Time Frame: Aug 08, 2020 Eating (QC): 6 Oral Hygiene (QC): 6 Shower/Bathe Self (QC): 6 Upper Body Dressing (QC): 6 Lower Body Dressing (QC): 6 On/Off Footwear (QC): 6 Toileting Hygiene (QC): 6 Toilet/Commode Transfer (QC): 6 Additional Goals: 1-Demonstrate ADL Tasks, 2-Verbalize Understanding, 3- ImproveStrength/Donavon 1=Demonstrate adherence to instructed precautions during ADL tasks. 2=Patient will verbalize/demonstrate understanding of assistive devices/modifications for ADL. 3=Patient will improve strength/tolerance for activity to enable patient to perform ADL's. JUAN GELLER PT Aug 04, 2020 09:12
--- NOTE | 2020-08-04 09:31 | NUR ---
Home O2 study ordered per MD. Kaufman RT called at this time to perform study stated " I'll get to it when I can"
[2020-08-04] MEDS ORDERED: PANT40TA52 PO (09:50)
--- NOTE | 2020-08-04 09:52 | D/C HH Face to Face Order ---
D/C Face to Face Orders Reconcile Patient Problems Problems Reviewed?: Yes Instructions for Patient Via [facility], Patient Instructions/FollowUp: PCP [address] Prieto and Dr Queen in 1 week Physician to follow Patient: PCP Discharge Diet for Home: No Restrictions Patient Problems: Debility Hypoxia COVID s/p Patient Data-Allergies,Ht & Wt Patient Allergies: Coded Allergies: No Known Drug Allergies (Unverified , 04/01/20) Home Health Need/Face to Face Date of Face to Face: Aug 04, 2020 Clinical Findings: Generalized weakness and fatigue, Instability, Muscle weakness, Shortness of breath, Unsteady gait I have seen Pt [id number]: Yes Discharged To: Home Diagnosis/Conditions: Debility Hypoxia COVID s/p Patient is Homebound due to: CognItive deficits, Nataly fall risk due to instabilty, Muscle weakness, Shortness of breath/distress Homebound Status Due to the above stated illness, injury or surgical procedure (medical condition or diagnosis) and associated clinical findings, the patient is homebound because of his/her inability to leave home except with aid of a supportive device and/or person AND leaving the home requires a considerable and taxing effort or is medically contraindicated. Pt req the following assistanc: Walker Home Health Nursing Orders Home Health Services Order: Nursing Services (new O2 management), Solution Strategist-Evaluate & Treat, Physical Therapy-Evaluate & Treat Certify Stmt I certify that this patient is under my care and that I, a nurse practitioner or a physician; a psychological assistant working with me, had a face to face encounter that - meets the physician face to face encounter requirements with this patient as dated. HENRY PERKINS DO Aug 04, 2020 09:52
--- NOTE | 2020-08-04 09:53 | Discharge Summary ---
Discharge Summary Hospital Course Was the Problem List Reviewed?: Yes Problems/Dx: (1) Weakness Status: Acute (2) Ascites (3) 2019 novel coronavirus disease (COVID-19) Status: Acute (4) Hypoxia Status: Acute (5) Edema leg Status: Acute (6) Diarrhea Status: Acute (7) Bladder cancer Status: Acute Hospital Course Date of Admission: Aug 01, 2020 at 12:08 Admission Diagnosis : Family Physician/Provider: Kj Krueger MD Date of Discharge: 08/04/20 Discharge Diagnosis: Debility from COVID-19, hypoxia, ascites, bladder cancer 03/31, edema Hospital Course: Hospital Course: Pt had a short swingbed hospital course. He was admitted there for PT and OT due to debility from Covid 19. He did ween off O2 during his stay and he did require IV fluids and his liver enzymes were improving but still needed close monitoring for any type of peritoneal carcinoma but his after terminal extubated after Covid 19 respiratory failure so he was deemed stable for DC and did not need home O2 at DC. Will have close follow up with Dr. Queen oncology and Dr. Prieto. Labs and Pending Lab Test: Laboratory Tests 08/04/20 05:43: White Blood Count 9.4, Red Blood Count 4.72, Hemoglobin 14.2, Hematocrit 42, Mean Corpuscular Volume 89, Mean Corpuscular Hemoglobin 30, Mean Corpuscular Hemoglobin Concent 34, Red Cell Distribution Width 18.0H, Platelet Count 334, Mean Platelet Volume 11.6, Immature Granulocyte % (Auto) 4, Neutrophils (%) (Auto) 69, Lymphocytes (%) (Auto) 14, Monocytes (%) (Auto) 12, Eosinophils (%) (Auto) 0, Basophils (%) (Auto) 1, Neutrophils # (Auto) 6.4, Lymphocytes # (Auto) 1.3, Monocytes # (Auto) 1.1H, Eosinophils # (Auto) 0.0, Basophils # (Auto) 0.1, Immature Granulocyte # (Auto) 0.4H, Sodium Level 135, Potassium Level 4.1, Chloride Level 110H, Carbon Dioxide Level 19L, Anion Gap 6, Blood Urea Nitrogen 32H, Creatinine 0.99, Estimat Glomerular Filtration Rate > 60, BUN/Creatinine Ratio 32, Glucose Level 83, Calcium Level 7.1L, Corrected Calcium 8.9, Total Bilirubin 0.7, Aspartate Amino Transf (AST/SGOT) 56H, Alanine Aminotransferase (ALT/SGPT) 47, Alkaline Phosphatase 675H, Total Protein 4.2L, Albumin 1.7L Home Meds Active Pantoprazole Sodium 40 Mg Tablet.dr 40 Mg PO DAILY Reported Antacid Chewable Tablet (Calcium Carb/Magnesium Hydrox) 1 Each Tab.chew 1-2 Each PO PRN PRN Aspirin EC (Aspirin) 81 Mg Tablet.dr 81 Mg PO DAILY Zinc 50 Mg Tablet 50 Mg PO DAILY Vitamin C (Ascorbic Acid) 500 Mg Tab.chew 1,000 Mg PO DAILY Vitamin D3 (Cholecalciferol (Vitamin D3)) 25 Mcg Capsule 25 Mcg PO DAILY Furosemide 20 Mg Tablet 20 Mg PO DAILY Lisinopril 40 Mg Tablet 40 Mg PO DAILY Amlodipine Besylate 10 Mg Tablet 10 Mg PO HS Acid Office System Analyst (FAMOTIDINE) (Famotidine) 20 Mg Tablet 20 Mg PO BID Advair 250-50 Diskus (Fluticasone/Salmeterol) 1 Each Blst.w.dev 1 Each IH BID Assessment/Pt Instructions Dr Queen 1 week Discharge Planning: <30 minutes discharge planning Discharge Physical Examination Vital Signs Vital Signs Date Time Temp Pulse Resp B/P (MAP) Pulse Ox O2 Delivery O2 Flow Rate FiO2 08/04/20 05:47 36.8 72 20 125/77 (93) 96 Nasal Cannula 2.00 2.00 General Appearance: No Apparent Distress, WD/WN, Chronically ill Respiratory: Chest Non Tender, Lungs Clear, Normal Breath Sounds, No Accessory Muscle Use, No Respiratory Distress Cardiovascular: Regular Rate, Rhythm, No Edema, No Gallop, No JVD, No Murmur, Normal Peripheral Pulses Neurologic/Psychiatric: Alert, Oriented x3, No Motor/Sensory Deficits, Normal Mood/Affect Allergies: Coded Allergies: No Known Drug Allergies (Unverified , 04/01/20) Discharge Summary Date of Admission Aug 01, 2020 at 12:08 Date of Discharge Discharge Date: Aug 04, 2020 Discharge Diagnosis Assessment: 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
--- NOTE | 2020-08-04 10:04 | NUR ---
SPO2 DID NOT DROP BELOW 90% WITH EXERTION. Addendum: 08/04/20 at 1054 by LO PEREZ RT Amended: Links added.
[2020-08-04] MEDS: ADVAIR HFA 115/21 MCG INHALER 8 GM IH SCH (10:42)
[2020-08-04] MEDS: RT-ALBUTEROL INHALER HFA (VENTOLIN HFA) 18 GM IH SCH (10:42)
--- NOTE | 2020-08-04 10:46 | Progress Note ---
LON OCONNOR STUDENT 08/04/20 1046: Progress Note Fausto Dowling is a 69 year old white male who was admitted with increasing SOB, poor appetite, increased abdominal girth, and increasing leg swelling. He was diagnosed with COVID 19 on July 13. His symptoms began July 12. The patient had a bladder tumor resection in March of 2020 and seven instillations of mitomycin. Since that point in time his abdominal girth has been worsening per the patient. General surgery was consulted and Dr. Prieto performed a paracentesis this hospital stay, drained approximately 6-7 L at that time. Peritoneal fluid analysis was negative for malignant cells and so oncology was consulted for further management. Oncology relays his ascites is at least in part due to chronic diffuse liver disease and likely liver decompensation after the mitomycin treatment. Oncology consulted general surgery, this time to ascertain the possibility of having a diagnostic laparotomy surgery to look for signs of peritoneal seeding and possible peritoneal carcinomatosis. The patient has been consistently on 2 L oxygen via [place] for the duration of his stay and vital signs have remained stable. Given the patients debility related weakness and likely high risk surgical candidate, he was transferred to swing bed status. His yesterday after being terminally extubated in the ICU here at [facility], due to complications from COVID-19. Over the last few days Mr. Dowling has been stable. His vital signs have been stable and he's been afebrile. He's still requiring 2 L oxygen via NC today. He's tolerating po intake well and having regular BM's and voiding without difficulty. Plan is to have a home 02 evaluation completed today and discharge him to home later today. KAYLEE PERKINS DO 08/05/20 0433: Supervisory-Addendum Brief Verification & Attestation Participated in pt care: history, MDM, physical Personally performed: exam, history, MDM, supervision of care Care discussed with: Medical Student Procedures: n/a Results interpretation: Verified all documentation Verification and Attestation of Medical Student E/M Service A medical student performed and documented this service in my presence. I reviewed and verified all information documented by the medical student and made modifications to such information, when appropriate. I personally performed the physical exam and medical decision making. Kaylee Perkins, Aug 05, 2020,04:33 LON OCONNOR MED STUDENT Aug 04, 2020 10:46 KAYLEE PERKINS DO Aug 05, 2020 04:33
--- NOTE | 2020-08-04 11:41 | NUR ---
CM FINALIZED DISCHARGE PLAN: Patient will dismiss to home today self care. He had an O2 study performed by RT and did not qualify for oxygen. Offered home health care and he declines. He denies any needs and voices readiness to get home.
--- NOTE | 2020-08-04 11:45 | NUR ---
Room visit with patient. Patient is dressed and ready to be d/c today with family. Patient wanted to let everyone know how much he appreciated them. This report writer offering support /comfort as patient's on ICU 08/03/20 to [facility]. Patient on Swing Bed 08/01/20 and being d/c 08/04/20. No recreational assessment done as patient d/c today.
--- NOTE | 2020-08-04 11:52 | Occ Therapy Progress Note ---
Therapy Progress Note Pt discharging home today. Discussed with pt if any concerns or needs for home environment. Pt stated that he had made his home accessible with walk-in shower and grabbars. Pt is up ad narinder in room. Completed all ADLs independently prior to OT entering room. Pt has met all goals. 1 visit JOSÉ JAMISON Aug 04, 2020 11:52
[2020-08-04 11:58] VITALS: BP 125/77
--- NOTE | 2020-08-04 13:13 | NUR ---
Wire Mesh Filter Fabricator accompanied resident at discharge, assisted with belongings to the ER entrance where his two daughters were present. Offered condolences and empathic listening for grief of pt's who over the weekend after being placed on comfort care.
--- NOTE | 2020-08-04 15:00 | Therapy Team Discharge Summary ---
Therapy Discharge Summary Discharge Recommendations Date of Discharge Aug 04, 2020 at 11:58 Occupational Therapy Pt post-COVID. Pt was IND with ADLs upon evaluation, completed one tx session with pt to ensure safe d/c and increase fx UE and activity tolerance for home d/c. D/c with no OT recommendations as pt at PLOF for ADLs. Decreased Activ Tolerance, Edema, Impaired I ADL's PT Asbestos Siding Installer Goals Halfway Goals PT Asbestos Siding Installer Goals Time Frame: Aug 04, 2020 Roll Left to Right (QC): 6 (met 08/01/20) Sit to Lying (QC): 6 (met 08/01/20) Lying-Sitting on Side/Bed(QC): 6 (met 08/01/20) Sit to Stand (QC): 6 (met 08/01/20) Chair/Ovq-yk-Hfunq Xfer(QC): 6 (met 08/01/20) Car Transfer (QC): 6 (met 08/01/20) Does the Patient Walk: Yes Walk 10 feet (QC): 6 (met 08/01/20) Walk 10ft-Uneven Surface(QC): 6 (met 08/01/20) Walk 50ft with 2 Turns (QC): 6 (met 08/01/20) Walk 150 ft (QC): 6 (met 08/01/20) Does the Pt use WC or Scooter?: No Wheel 50 feet with 2 turns (QC: 9 1 Step (curb) (QC): 6 (met 08/01/20) 4 Steps (QC): 6 (met 08/01/20) 12 Steps (QC): 6 (met 08/01/20) Picking up an Object (QC): 6 (met 08/01/20) OT Asbestos Siding Installer Goals Asbestos Siding Installer Goals Time Frame: Aug 08, 2020 Eating (QC): 6 Oral Hygiene (QC): 6 Shower/Bathe Self (QC): 6 Upper Body Dressing (QC): 6 Lower Body Dressing (QC): 6 On/Off Footwear (QC): 6 Toileting Hygiene (QC): 6 Toilet/Commode Transfer (QC): 6 Additional Goals: 1-Demonstrate ADL Tasks, 2-Verbalize Understanding, 3-Improve Strength/[place] 1=Demonstrate adherence to instructed precautions during ADL tasks. 2=Patient will verbalize/demonstrate understanding of assistive devices/modifications for ADL. 3=Patient will improve strength/tolerance for activity to enable patient to pe rform ADL's. ANDRY MERINO OTR Aug 04, 2020 15:00
== END 2020-08-04 11:58 | disposition home health service (06) | DRG 948 ==
LOC: 4TH 12:08
PROVIDERS: ADMIT Internal Medicine; ATTEND Internal Medicine
DX: R53.1 Weakness (principal); R18.8 Other ascites; R53.81 Other malaise; R09.02 Hypoxemia; R05 Cough; R06.02 Shortness of breath; B94.8 Sequelae of other specified infectious and parasitic diseases; R60.0 Localized edema; J43.9 Emphysema, unspecified; R19.7 Diarrhea, unspecified; Z85.51 Personal history of malignant neoplasm of bladder; Z23 Encounter for immunization
CPT/HCPCS: 36415; 80053; 85025; 85027; 90662; 94640; 94760; 94761

== ENCOUNTER 2020-08-19 05:36 | Outpatient (RCR) | payer MEDICARE ==
[~2020-08-19] VITALS: Ht 167 cm; Wt 85.0 kg
[~2020-08-19 05:36] MED LIST changes: +DIPH1TAB25 PO; +LOPE-175 PO; +PANT40TA52 PO
== END 2020-08-19 08:41 | disposition home or self-care (01) ==
LOC: PREOP 05:36
PROVIDERS: ATTEND Surgery
DX: Z01.812 Encounter for preprocedural laboratory examination (principal); U07.1 COVID-19; R18.8 Other ascites
CPT/HCPCS: 87635

== ENCOUNTER 2020-08-20 10:21 | Day surgery (SDC) | payer MEDICARE ==
[~2020-08-20] VITALS: Ht 167 cm; Wt 85.0 kg
[2020-08-20] VITALS (11 sets, daily range): BP systolic 77–115; BP diastolic 52–80
[2020-08-20] MEDS ORDERED: ceFAZolin INJECTION 1,000 MG ONE (10:44)
[2020-08-20] MEDS ORDERED: WATER (STERILE) FOR INJECTION 10 ML ONE (10:44)
[2020-08-20] MEDS: LACTATED RINGERS 1,000 ML IV PRN ×2 (10:52→13:53)
[2020-08-20] MEDS ORDERED: ceFAZolin INJECTION 1,000 MG in WATER (STERILE) FOR INJECTION 10 ML IV ONE (11:00)
--- NOTE | 2020-08-20 11:27 | Progress Note-Pre Operative ---
Pre-Operative Progress Note H&P Reviewed The H&P was reviewed, patient examined and no changes noted. Date Seen by Provider: Aug 20, 2020 Time Seen by Provider: :23 Date H&P Reviewed: Aug 20, 2020 Time H&P Reviewed: : Pre-Operative Diagnosis: symptomatic ascites, abdominal carcinomatosis FELIPA THOMPSON DO Aug 20, 2020 11:27
[2020-08-20] MEDS ORDERED: LIDOCAINE/EPI 1%-1:100,000 (XYLOCAINE) 20ML ONE (12:16)
[2020-08-20] MEDS ORDERED: fentaNYL INJECTION 100 MCG/2 ML AMP ONE (13:05)
[2020-08-20] MEDS ORDERED: proPOfol 200 MG/20 ML (DIPRIVAN) VIAL IV ONE (13:06)
[2020-08-20] MEDS ORDERED: LIDOCAINE PF 2% 5 ML (XYLOCAINE) VIAL ONE (13:06)
[2020-08-20] MEDS ORDERED: MIDAZOLAM 2 MG/2 ML (VERSED) VIAL ONE (13:18)
[2020-08-20] MEDS ORDERED: fentaNYL INJECTION 100 MCG/2 ML AMP IVP ONE (13:45)
[2020-08-20] MEDS ORDERED: MEPERIDINE (DEMEROL) INJ 50 MG/ML IVP ONE (13:45)
[2020-08-20] MEDS ORDERED: morphine INJ 10 MG/ML 1ML (SYR OR VIAL) IVP ONE (13:45)
[2020-08-20] MEDS ORDERED: ONDANSETRON 4 MG/2 ML (SDV) Z0FRAN IVP PRN (13:45)
[2020-08-20] MEDS ORDERED: ONDANSETRON 4 MG/2 ML (SDV) Z0FRAN ONE (13:48)
[2020-08-20] MEDS ORDERED: ISOFLURANE (FORANE) 15 ML/15 MIN INHALATION ONE (13:48)
[2020-08-20] MEDS ORDERED: SEVOFLURANE (ULTANE) 15 ML INHAL SOLN ONE (13:48)
[2020-08-20] MEDS ORDERED: NEOSTIGMINE 3 MG/3 ML VIAL ONE (13:58)
[2020-08-20] MEDS ORDERED: GLYCOPYRROLATE 0.2 MG/ML (ROBINUL) 2 ML VIAL ONE (13:58)
--- NOTE | 2020-08-20 14:45 | Anesthesia-General Post-Op ---
General Patient Condition Mental Status/LOC: Same as Preop Cardiovascular: Satisfactory Nausea/Vomiting: Absent Respiratory: Satisfactory Pain: Controlled Complications: Absent Post Op Complications Complications None Follow Up Care/Instructions Patient Instructions None needed. Anesthesia/Patient Condition Patient Condition Patient is doing well, no complaints, stable vital signs, no apparent adverse anesthesia problems. ELENI GARY DO Aug 20, 2020 14:45
[2020-08-20] MEDS ORDERED: HYDROcodone/APAP 5 MG/325 MG (LORTAB) TAB ONE (16:56)
[2020-08-20] MEDS ORDERED: HYDROcodone/APAP 5 MG/325 MG (LORTAB) TAB PO ONE (17:00)
--- NOTE | 2020-08-23 02:40 | OPERATIVE REPORT ---
DATE OF SERVICE: 08/20/2020 PREOPERATIVE DIAGNOSIS: Symptomatic ascites, possible abdominal carcinomatosis. POSTOPERATIVE DIAGNOSES: Ascites, miniscule possible peritoneal lesions. PROCEDURE: Diagnostic laparoscopy with excisional biopsy of peritoneum and PleurX drain placement. SURGEON: Felipa Prieto DO NUTRITION SERVICES ASSISTANT: Dr. Meyer, assisted in retraction, dissection and closure. ANESTHESIA: General. ESTIMATED BLOOD LOSS: Minimal. COMPLICATIONS: None. INDICATIONS: The patient is a 69-year-old male with recurrent abdominal ascites, symptomatic. He had a previous CT scan of his abdomen, which had questionable carcinomatosis. It was recommended to have diagnostic laparoscopy and we discussed possible placement of PleurX drain, which he wished to proceed with. The patient and family understand risks and benefits and consent was signed in the chart. DESCRIPTION OF PROCEDURE: The patient was taken to the operating suite, was prepped and draped in sterile fashion. Surgical pause was performed. Local anesthetic was infiltrated above the umbilicus. An 11 blade scalpel was used to make a small skin incision and cautery was used to dissect down the fascia, which was then scored, grasped with Kochers, elevated and the abdomen was then entered, yellowish ascitic fluid erupted and this was then suctioned. A balloon trocar was inserted and pneumoperitoneum was achieved. Under direct visualization of the laparoscope, a 5 mm trocar was placed in the right upper quadrant and a 5 mm trocar was placed in the left upper quadrant. Abdomen was then inspected multiple large pockets of ascitic fluid. The small bowel and colon that was able to be visualized, had normal appearance. The omentum had normal appearance. The liver was smooth, but had a slight area of contracted appearance, maybe slightly related to congestion, but no masses visualized. The ascitic fluid was able to be drained. It was then decided to place a PleurX drain, so further drainage could be performed when symptomatic. An 11 blade scalpel was used to make a small skin incision inferior to the right upper quadrant 5 mm trocar site. Local anesthetic had been infiltrated in this area and the area for tunneling to the trocar site as well. The PleurX catheter was then tunneled from this site all the way up to the trocar and brought out through the incision. The dilator sheath was advanced through the abdominal wall under direct visualization of the laparoscope. The dilator was removed. The catheter was inserted and the sheath was then removed. The catheter was then secured in the usual fashion. The abdomen was then desufflated. The 12 mm trocar at the umbilicus. Fascia defect was then closed using 0 Vicryl in a [id number] fashion. The skin was then closed using 4-0 Monocryl in a subcuticular fashion. The areas were then washed and dried and Skin Affix and sterile bandages were applied. The patient tolerated procedure well without any complications. RECOMMENDATIONS: The patient to continue draining on an as needed basis using the PleurX catheter. Prior to closure, there was small area in the perineum, questionable seeding, which Endo-scissors were used to remove a small portion of peritoneum with these lesions present. This was sent for pathology. The patient to follow up on pathology. Drain the PleurX catheter of the ascitic fluid when symptomatic. The patient to keep next appointment with Dr. Thomason as well. Job ID: [id number] DocumentID: [id number] Dictated Date: 08/22/2020 21:46:41 Adobe Layer Helper Date: 08/23/2020 02:39:48 Dictated By: FELIPA PRIETO DO
== END 2020-08-20 17:05 ==
LOC: SDC 10:21
PROVIDERS: ATTEND Surgery
DX: R18.8 Other ascites (principal); C67.9 Malignant neoplasm of bladder, unspecified; I10 Essential (primary) hypertension; J44.9 Chronic obstructive pulmonary disease, unspecified; K21.9 Gastro-esophageal reflux disease without esophagitis; E78.00 Pure hypercholesterolemia, unspecified; R93.5 Abnormal findings on diagnostic imaging of other abdominal regions, including retroperitoneum; Z79.51 Long term (current) use of inhaled steroids; Z79.899 Other long term (current) drug therapy; Z80.9 Family history of malignant neoplasm, unspecified
CPT/HCPCS: 32550; 49321; 87081; 88112; 88305; C1729

== ENCOUNTER 2020-09-01 12:56 | Outpatient (RCR) | payer MEDICARE ==
[~2020-09-01 12:56] MED LIST changes: -LISI40TA PO; +LISI40TA9 PO
[2020-09-01 13:05] LABS: BASOPHILS # (AUTO) 0.1 10^3/uL (0.0-0.1); BASOPHILS % (AUTO) 1 % (0-10); EOSINOPHILS # (AUTO) 0.1 10^3/uL (0.0-0.3); EOSINOPHILS % (AUTO) 0 % (0-10); HEMATOCRIT 47 % (40-54); HEMOGLOBIN 15.6 g/dL (13.3-17.7); LYMPHOCYTES # (AUTO) 1.1 10^3/uL (1.0-4.0); LYMPHOCYTES % (AUTO) 7 % (12-44); MEAN CORPUSCULAR HEMOGLOBIN 31 pg (25-34); MEAN CORPUSCULAR HGB CONC 33 g/dL (32-36); MEAN CORPUSCULAR VOLUME 92 fL (80-99); MEAN PLATELET VOLUME 10.3 fL (9.0-12.2); MONOCYTES # (AUTO) 0.9 10^3/uL (0.0-1.0); MONOCYTES % (AUTO) 5 % (0-12); NEUTROPHILS # (AUTO) 14.7 10^3/uL (1.8-7.8); NEUTROPHILS % (AUTO) 86 % (42-75); PLATELET COUNT 374 10^3/uL (130-400)
[2020-09-01 13:14] LABS: ALBUMIN 1.6 GM/DL (3.2-4.5); CHLORIDE 110 MMOL/L (98-107); POTASSIUM 4.2 MMOL/L (3.6-5.0); SODIUM 138 MMOL/L (135-145)
[2020-09-01 13:16] LABS: CALCIUM 7.6 MG/DL (8.5-10.1)
[2020-09-01 13:17] LABS: GLUCOSE 80 MG/DL (70-105); TOTAL PROTEIN 4.7 GM/DL (6.4-8.2)
[2020-09-01 13:18] LABS: BILIRUBIN,TOTAL 0.6 MG/DL (0.1-1.0); CARBON DIOXIDE 21 MMOL/L (21-32)
[2020-09-01 13:20] LABS: ALKALINE PHOSPHATASE 1006 U/L (40-136); CREATININE SERUM 0.79 MG/DL (0.60-1.30); GFR ESTIMATED > 60
[2020-09-01 13:21] LABS: BUN/CREATININE RATIO 41
[2020-09-01 13:23] LABS: ALANINE AMINOTRANSFERASE 50 U/L (0-55)
== END 2020-11-30 | disposition home or self-care (01) ==
LOC: ONC 12:56
PROVIDERS: ATTEND Internal Medicine Hematology & Oncology
DX: C67.9 Malignant neoplasm of bladder, unspecified (principal); J44.9 Chronic obstructive pulmonary disease, unspecified; K46.0 Unspecified abdominal hernia with obstruction, without gangrene; D17.79 Benign lipomatous neoplasm of other sites; R60.0 Localized edema; Z87.891 Personal history of nicotine dependence
CPT/HCPCS: 80053; 85025; G0463; 99213

== ENCOUNTER 2020-09-03 16:57 | Emergency (ER) | payer MEDICARE ==
[~2020-09-03] VITALS: Ht 167.7 cm; Wt 81.8 kg
[~2020-09-03 16:57] MED LIST changes: +LISI40TA PO; -LISI40TA9 PO
--- NOTE | 2020-09-03 17:03 | NUR ---
ABG BY Con ALEXANDER APRN.
[2020-09-03 17:11] LABS: ABG BASE EXCESS -6.7 MMOL/L (-2.5-2.5); ABG OXYGEN SATURATION 91 % (94-100); ABG PCO2 25 MMHG (35-45); ABG PH 7.44 (7.37-7.43); ABG PO2 59 MMHG (79-93); ABG TCO2 17.6 MMOL/L (21.0-31.0)
--- NOTE | 2020-09-03 17:15 | ED General ---
General Stated Complaint: LEFT LEG PAIN Source of Information: Patient Exam Limitations: No Limitations History of Present Illness Date Seen by Provider: Sep 03, 2020 Time Seen by Provider: 17:07 Initial Comments To ER by EMS from home with reports of left lower extremity swelling and pain. He is unable to tell us really when this pain started but states it seemed to be about his last hospitalization which was for Covid during the middle of July. He tested positive for Covid on 07/16/2020. His was also admitted and from Covid. He currently lives at home with his daughter. He does report chills but no fever. He is not on anticoagulation. No history of DVT. He is unable to walk because of the pain in the left calf. He is oxygen dependent for COPD at 3 L/min per nasal cannula. Timing/Duration: Constant, Getting Worse Severity: Moderate Associated Systoms: Denies Symptoms Allergies and Home Medications Allergies Coded Allergies: No Known Drug Allergies (Unverified , 08/20/20) Home Medications Albuterol Sulfate 1 Puff Puff, 2 PUFF INH TID, (Reported) 1 PUFF = 90 MCG Amlodipine Besylate 10 Mg Tablet, 10 MG PO HS, (Reported) Ascorbic Acid 500 Mg Tab.chew, 1,000 MG PO DAILY, (Reported) Aspirin 81 Mg Tablet.dr, 81 MG PO DAILY, (Reported) Cholecalciferol (Vitamin D3) 25 Mcg Capsule, 25 MCG PO DAILY, (Reported) Diphenoxylate HCl/Atropine 1 Each Tablet, 1 EACH PO BID PRN for DIARRHEA, (Reported) Fluticasone/Salmeterol 1 Each Blst.w.dev, 1 EACH IH BID, (Reported) Lisinopril 40 Mg Tablet, 40 MG PO DAILY, (Reported) Loperamide HCl 2 Mg Capsule, 2 MG PO PRN, (Reported) Pantoprazole Sodium 40 Mg Tablet.dr, 40 MG PO DAILY Prescribed by: HENRY PERKINS on 08/04/20 0950 Patient Home Medication List Home Medication List Reviewed: Yes Review of Systems Review of Systems Constitutional: see HPI, chills; No fever EENTM: see HPI Respiratory: no symptoms reported Cardiovascular: no symptoms reported Genitourinary: no symptoms reported Musculoskeletal: no symptoms reported Skin: no symptoms reported Psychiatric/Neurological: No Symptoms Reported Hematologic/Lymphatic: No Symptoms Reported Immunological/Allergic: no symptoms reported Past Ulrabrw-Memtcr-Kylnqv Hx Patient Social History Former Smoker, Quit: Apr 01, 2011 2nd Hand Smoke Exposure: No Recent Hopitalizations: No Immunizations Up To Date Date of Pneumonia Vaccine: Jun 12, 2019 Date of Influenza Vaccine: Jun 16, 2020 Seasonal Allergies Seasonal Allergies: No Past Medical History Surgeries: Yes Bladder Surgery Respiratory: Yes (O2 2.5L PRN) COPD, Emphysema Currently Using CPAP: No Currently Using BIPAP: No Cardiac: Yes Hypertension Neurological: No Sexually Transmitted Disease: No HIV/AIDS: No Genitourinary: Yes (bladder tumor) Gastrointestinal: Yes Gastroesophageal Reflux, Chronic Diarrhea Musculoskeletal: Yes Arthritis, Gout Endocrine: No HEENT: No (GLASSES) Loss of Vision: Denies Hearing Impairment: Hard of Hearing, Bilateral Hearing Aide Cancer: Yes Bladder Did You Recieve Any Treatments: Yes What Type of Treatment Did You: Chemotherapy, Surgical Intervention Psychosocial: No Integumentary: No Blood Disorders: No Adverse Reaction/Blood Tranf: No (N/A) Family Medical History No Pertinent Family Hx Physical Exam Vital Signs Vital Signs - First Documented 09/03/20 16:57 Temp 36.3 Pulse 91 Resp 26 B/P (MAP) 98/67 (77) Pulse Ox 89 O2 Delivery Nasal Cannula O2 Flow Rate 2.00 Capillary Refill : Height, Weight, BMI Height: '" Weight: lbs. oz. kg; 30.47 BMI Method: General Appearance: WD/WN, Chronically ill, Other (Rather dyspneic appearing on arrival. Respiratory rate of 28, oxygen saturation 87% on his baseline 3 L increases to 90% on 4 L. Yes placed ABG obtained.) HEENT: PERRL/EOMI, TMs Normal Neck: Full Range of Motion, Normal Inspection Respiratory: No Accessory Muscle Use, No Respiratory Distress, Decreased Breath Sounds Cardiovascular: Normal Peripheral Pulses, Tachycardia Gastrointestinal: Normal Bowel Sounds, Non Tender, Soft, Other (There is some edema even of the abdominal wall. There is a paracentesis drain in the right side of the lower abdomen covered with clear adherent OpSite with some underlying contact dermatitis beneath it that is well demarcated and does not appear to be cellulitis) Extremity: Normal Inspection, Other (There is 2-3+ pitting edema bilateral lower extremities. The left leg is a bit purplish in color as compared to the right but has a strong palpable dorsalis pedis pulse.) Neurologic/Psychiatric: Alert, Oriented x3 Focused Exam Lactate Level 09/03/20 18:58: Lactic Acid Level 2.60*H Lactic Acid Level Laboratory Tests Test 09/03/20 18:58 Lactic Acid Level 2.60 MMOL/L (0.50-2.00) *H Procedures/Interventions Lumen: triple Central Line Procedure: betadine prep, sterile drapes applied, sterile dressing applied Position: femoral (R) Anesthesia: Lidocaine Volume Anesthetic (ccs): 5 Complications: none Post Position: good blood return Progress/Results/Core Measures Suspected Sepsis SIRS Temperature: Pulse: Respiratory Rate: Laboratory Tests 09/03/20 17:00: White Blood Count 21.2H Blood Pressure / Mean: 09/03/20 18:58: Lactic Acid Level 2.60*H Laboratory Tests 09/03/20 17:00: Creatinine 1.72H, INR Comment 1.0, Platelet Count 362, Total Bilirubin 1.7H Results/Orders Lab Results Laboratory Tests Test 09/03/20 17:00 09/03/20 17:05 09/03/20 18:00 09/03/20 18:58 Range/Units White Blood Count 21.2 H 4.3-11.0 10^3/uL Red Blood Count 4.44 4.30-5.52 10^6/uL Hemoglobin 13.5 13.3-17.7 g/dL Hematocrit 40 40-54 % Mean Corpuscular Volume 90 80-99 fL Mean Corpuscular Hemoglobin 30 25-34 pg Mean Corpuscular Hemoglobin Concent 34 32-36 g/dL Red Cell Distribution Width 19.8 H 10.0-14.5 % Platelet Count 362 130-400 10^3/uL Mean Platelet Volume 10.9 9.0-12.2 fL Immature Granulocyte % (Auto) 1 % Neutrophils (%) (Auto) 93 H 42-75 % Lymphocytes (%) (Auto) 4 L 12-44 % Monocytes (%) (Auto) 2 0-12 % Eosinophils (%) (Auto) 0 0-10 % Basophils (%) (Auto) 0 0-10 % Neutrophils # (Auto) 19.8 H 1.8-7.8 10^3/uL Lymphocytes # (Auto) 0.8 L 1.0-4.0 10^3/uL Monocytes # (Auto) 0.3 0.0-1.0 10^3/uL Eosinophils # (Auto) 0.0 0.0-0.3 10^3/uL Basophils # (Auto) 0.1 0.0-0.1 10^3/uL Immature Granulocyte # (Auto) 0.2 H 0.0-0.1 10^3/uL Neutrophils % (Manual) 78 % Lymphocytes % (Manual) 1 % Monocytes % (Manual) 0 % Eosinophils % (Manual) 0 % Basophils % (Manual) 0 % Band Neutrophils 19 % Nucleated Red Blood Cells 1 Reactive Lymphocytes 2 % Toxic Granulation 2+ Polychromasia SLIGHT Hypochromasia SLIGHT Poikilocytosis MODERATE Anisocytosis SLIGHT Macrocytosis SLIGHT Target Cells MODERATE Schistocytes SLIGHT Prothrombin Time 13.8 12.2-14.7 SEC INR Comment 1.0 0.8-1.4 Activated Partial Thromboplast Time 35 24-35 SEC D-Dimer 14.81 H 0.00-0.49 UG/ML Sodium Level 129 L 135-145 MMOL/L Potassium Level 5.0 3.6-5.0 MMOL/L Chloride Level 101 98-107 MMOL/L Carbon Dioxide Level 16 L 21-32 MMOL/L Anion Gap 12 5-14 MMOL/L Blood Urea Nitrogen 55 H 7-18 MG/DL Creatinine 1.72 H 0.60-1.30 MG/DL Estimat Glomerular Filtration Rate 39 BUN/Creatinine Ratio 32 Glucose Level 82 70-105 MG/DL Calcium Level 7.8 L 8.5-10.1 MG/DL Corrected Calcium 9.7 8.5-10.1 MG/DL Total Bilirubin 1.7 H 0.1-1.0 MG/DL Aspartate Amino Transf (AST/SGOT) 43 H 5-34 U/L Alanine Aminotransferase (ALT/SGPT) 36 0-55 U/L Alkaline Phosphatase 656 H 40-136 U/L C-Reactive Protein High Sensitivity 41.32 H 0.00-0.50 MG/DL B-Type Natriuretic Peptide 1143.7 H <100.0 PG/ML Total Protein 4.7 L 6.4-8.2 GM/DL Albumin 1.6 L 3.2-4.5 GM/DL Procalcitonin 53.13 H <0.10 NG/ML Blood Gas Puncture Site UNK Blood Gas Patient Temperature 36.3 Arterial Blood pH 7.44 H 7.37-7.43 Arterial Blood Partial Pressure CO2 25 L 35-45 MMHG Arterial Blood Partial Pressure O2 59 L 79-93 MMHG Arterial Blood HCO3 17 *L 23-27 MMOL/L Arterial Blood Total CO2 17.6 L 21.0-31.0 MMOL/L Arterial Blood Oxygen Saturation 91 L 94-100 % Arterial Blood Base Excess -6.7 L -2.5-2.5 MMOL/L Andrzej Test YES-POS Blood Gas Ventilator Setting NO Blood Gas Inspired Oxygen 3L Body Fluid Source PERITONEAL Body Fluid Color PALE YELLOW Body Fluid Appearance SLT CLDY Body Fluid WBC 170 /uL Body Fluid RBC 100 /uL Body Fluid Polynuclear WBCs 96 % Body Fluid Mononuclear WBCs 0 % Body Fluid Lymphocytes 4 % Body Fluid Other Cells 0 % Lactic Acid Level 2.60 *H 0.50-2.00 MMOL/L Test 09/03/20 20:00 09/03/20 21:10 Range/Units Urine Color DARK YELLOW Urine Clarity SL CLOUDY Urine pH 5.0 5-9 Urine Specific [place] >=1.030 1.016-1.022 Urine Protein 2+ H NEGATIVE Urine Glucose (UA) NEGATIVE NEGATIVE Urine Ketones TRACE H NEGATIVE Urine Nitrite POSITIVE H NEGATIVE Urine Bilirubin 3+ H NEGATIVE Urine Urobilinogen 2.0 < = 1.0 MG/DL Urine Leukocyte Esterase NEGATIVE NEGATIVE Urine RBC (Auto) NEGATIVE NEGATIVE Urine RBC NONE /HPF Urine WBC 0-2 /HPF Urine Squamous Epithelial Cells NONE /HPF Urine Crystals PRESENT H /LPF Urine Amorphous Sediment MOD RONY URATES H /LPF Urine Bacteria FEW H /HPF Urine Casts PRESENT /LPF Urine Hyaline Casts 5-10 H /LPF Urine Mucus SMALL H /LPF Urine Culture Indicated YES My Orders Orders - HERIBERTO ALEXANDER [employer] PROSTHETICS ASSISTANT Cbc With Automated Diff (09/03/20 17:05) Comprehensive Metabolic Panel (09/03/20 17:05) Ua Culture If Indicated (09/03/20 17:05) Ed Iv/Invasive Line Start (09/03/20 17:05) Chest 1 View, Ap/Pa Only (09/03/20 17:05) Fibrin Degradation Products (09/03/20 17:05) Procalcitonin (Pct) (09/03/20 17:05) Hs C Reactive Protein (09/03/20 17:05) BNP (09/03/20 17:05) Arterial Blood Gas (09/03/20 17:05) Manual Differential (09/03/20 17:00) Piperacillin Sodium/Tazobactam (Zosyn Vi (09/03/20 18:15) Blood Culture (09/03/20 18:07) Lactic Acid Analyzer (09/03/20 18:07) Chest 1 View, Ap/Pa Only (09/03/20 18:07) Albumin 25% 25 Gm/100 Ml (Albumin 25% 25 (09/03/20 18:15) Body Fluid Cell Count (09/03/20 18:07) Body Fluid Culture (09/03/20 18:07) Fentanyl Injection (Sublimaze Injection (09/03/20 19:30) Catheter(Urinary) Care .0300, 1500 (09/03/20 20:04) Heparin Drip 98868 Unit/500ml (Heparin (09/03/20 20:15) Heparin (Bolus Per Protocol) (Heparin (B (09/03/20 20:15) Partial Thromboplastin Time (09/03/20 20:04) Protime With Inr (09/03/20 20:04) Cbc No Diff (09/06/20 05:00) Cbc No Diff (09/09/20 05:00) Platelet Count (09/04/20 05:00) Platelet Count (09/05/20 05:00) Platelet Count (09/06/20 05:00) Platelet Count (09/07/20 05:00) Platelet Count (09/08/20 05:00) Platelet Count (09/09/20 05:00) Platelet Count (09/10/20 05:00) Platelet Count (09/11/20 05:00) Platelet Count (09/12/20 05:00) Platelet Count (09/13/20 05:00) Partial Thromboplastin Time (09/04/20 00:04) Protime With Inr (09/06/20 05:00) Protime With Inr (09/07/20 05:00) Protime With Inr (09/08/20 05:00) Protime With Inr (09/09/20 05:00) Protime With Inr (09/10/20 05:00) Protime With Inr (09/11/20 05:00) Protime With Inr (09/12/20 05:00) Protime With Inr (09/13/20 05:00) Protime With Inr (09/14/20 05:00) Protime With Inr (09/15/20 05:00) Partial Thromboplastin Time (09/04/20 20:04) Partial Thromboplastin Time (09/04/20 02:04) Initiate Heparin Full Protocol (09/03/20 20:04) Urine Culture (09/03/20 20:00) Norepinephrine 4 Mg/250 Ml (Norepinephri (09/03/20 20:30) Covid 19 Inhouse Test (09/03/20 20:57) Arterial Blood Gas (09/03/20 21:08) Medications Given in ED Current Medications Medications Dose Ordered Sig/Ruby Route Start Time Stop Time Status Last Admin Dose Admin Albumin Human 100 ml @ 50 mls/hr ONCE ONCE IV 09/03/20 18:15 09/03/20 20:14 DC 09/03/20 18:57 50 MLS/HR Piperacillin Sod/ Tazobactam Sod 4.5 gm/Sodium Chloride 100 ml @ 200 mls/hr ONCE ONCE IV 09/03/20 18:15 09/03/20 18:44 DC 09/03/20 19:11 200 MLS/HR Vital Signs/I&O 09/03/20 09/03/20 09/03/20 16:57 18:00 20:25 Temp 36.3 Pulse 91 125 Resp 26 20 B/P (MAP) 98/67 (77) 73/59 Pulse Ox 89 94 O2 Delivery Nasal Cannula O2 Flow Rate 2.00 40.00 Capillary Refill : Diagnostic Imaging Diagonstic Imaging: Xray Comments NAME: [facility] REC#: [id number] PT STATUS: REG ER : 1950 PHYSICIAN: HERIBERTO ALEXANDER APRN ADMIT DATE: 09/03/20/ER Draft Date of Exam:09/03/20 CHEST 1 VIEW, AP/PA ONLY INDICATION: Cough and leg pain. COMPARISON: Prior examination from 07/26/2020. FINDINGS: There are patchy infiltrates in the right lung about the right upper lobe and right lower lobe. Heart size is normal. There is mild venous congestion. There is no pneumothorax. The mediastinum is unremarkable. The left lung is relatively clear. IMPRESSION: Patchy right upper lobe and lower lobe infiltrate suspect for pneumonia, as well as some mild central pulmonary venous congestion. Dictated on workstation # [id number] Dict: 09/03/201731 Trans: 09/03/201735 PJE [id number] Interpreted by: KIYA MARTÍNEZ MD Electronically signed by: Departure Communication (Admissions) Time/Spoke to Admitting Phy: 20:03 1757-blood pressure is 88/61, oxygen is 88 to 89% on 4 L. After reviewing his ABG he was placed on CPAP at 7 cm of water. He states he does want to be a full code. 1840-did right internal jugular central line placement x2 without success. I was able to enter the vessel with the finder needle but was unable to thread the guidewire past 10 to 12 cm john. This was using 2 kits 1854-based on based on labs several differentials here to include which would be cellulitis versus DVT left lower extremity +/- PE, right lung pneumonia, +/- bacterial peritonitis given the indwelling peritoneal drain. The fluid that I drained from this only totaled about 30 mL before he yelled out in pain however this fluid was clear straw-colored at not grossly cloudy. Spoke with Dr. Meyer, he agrees to consult from surgical standpoint, Dr. Perkins will admit. Patient does wish to be full code. 2002-Bp 84/61 RR 23, on cpap at 7cm. Was able to start a triple lumen central line in the right femoral vein using US guidance. 2105-Levophed has been started at 0.1 mics per kilo per minute infusing through the right femoral line. Blood pressure is up to 106/80. Heart rate 94, oxygen 93%. He is alert. Because of the pressor requirements he will need intensive care and we do not have any bed availability here. [facility] and [facility] and Paula are both on diversion. [facility] states that they do have a bed but they will need a repeat Covid test to determine which hospital to send him to. He has had 500 mL bolus of normal saline. Given the elevated BNP and the increased vascular markings on chest x-ray I am hesitant to overload him with fluids and feel that early pressors would be a better option. Impression Primary Impression: RESPIRATORY FAILURE, UNSP, UNSP W HYPOXIA OR HYPERCAPNIA Additional Impressions: Ascites Left leg pain Sepsis Disposition: 09 ADMITTED INPATIENT Condition: Critical Admissions Decision to Admit Reason: Admit from ER (General) Decision to Admit/Date: Sep 03, 2020 Time/Decision to Admit Time: 18:42 Departure-Patient Inst. Referrals: JN OLEA MD (PCP/Family) Primary Care Physician HERIBERTO ALEXANDER APRN Sep 03, 2020 17:14
[2020-09-03 17:21] LABS: ALLENS TEST YES-POS; INSPIRED O2 3L; PATIENT TEMP 36.3; VENTILATOR NO
[2020-09-03 17:26] LABS: BASOPHILS # (AUTO) 0.1 10^3/uL (0.0-0.1); BASOPHILS % (AUTO) 0 % (0-10); EOSINOPHILS % (AUTO) 0 % (0-10); HEMATOCRIT 40 % (40-54); HEMOGLOBIN 13.5 g/dL (13.3-17.7); LYMPHOCYTES # (AUTO) 0.8 10^3/uL (1.0-4.0); LYMPHOCYTES % (AUTO) 4 % (12-44); MEAN CORPUSCULAR HEMOGLOBIN 30 pg (25-34); MEAN CORPUSCULAR HGB CONC 34 g/dL (32-36); MEAN CORPUSCULAR VOLUME 90 fL (80-99); MEAN PLATELET VOLUME 10.9 fL (9.0-12.2); MONOCYTES # (AUTO) 0.3 10^3/uL (0.0-1.0); MONOCYTES % (AUTO) 2 % (0-12); NEUTROPHILS # (AUTO) 19.8 10^3/uL (1.8-7.8); NEUTROPHILS % (AUTO) 93 % (42-75); PLATELET COUNT 362 10^3/uL (130-400); WHITE BLOOD COUNT 21.2 10^3/uL (4.3-11.0)
[2020-09-03 17:30] LABS: ALBUMIN 1.6 GM/DL (3.2-4.5)
[2020-09-03 17:32] LABS: CALCIUM 7.8 MG/DL (8.5-10.1)
[2020-09-03 17:33] LABS: TOTAL PROTEIN 4.7 GM/DL (6.4-8.2)
[2020-09-03 17:35] LABS: BILIRUBIN,TOTAL 1.7 MG/DL (0.1-1.0)
--- NOTE | 2020-09-03 17:36 | Diagnostic Imaging Report ---
INDICATION: Cough and leg pain. COMPARISON: Prior examination from 07/26/2020. FINDINGS: There are patchy infiltrates in the right lung about the right upper lobe and right lower lobe. Heart size is normal. There is mild venous congestion. There is no pneumothorax. The mediastinum is unremarkable. The left lung is relatively clear. IMPRESSION: Patchy right upper lobe and lower lobe infiltrate suspect for pneumonia, as well as some mild central pulmonary venous congestion. Dictated by: Dictated on workstation # [id number]
[2020-09-03 17:37] LABS: CREATININE SERUM 1.72 MG/DL (0.60-1.30)
[2020-09-03 17:41] LABS: ANISOCYTOSIS SLIGHT; BAND NEUTROPHILS 19 %; BASOPHILS % (MANUAL) 0 %; EOSINOPHILS % (MANUAL) 0 %; HYPOCHROMASIA SLIGHT; LYMPHOCYTES % (MANUAL) 1 %; MONOCYTES % (MANUAL) 0 %; NEUTROPHILS % (MANUAL) 78 %; NUCLEATED RED BLOOD CELLS 1; POIKILOCYTOSIS MODERATE; POLYCHROMASIA SLIGHT; REACTIVE LYMPHOCYTES 2 %
[2020-09-03 17:42] LABS: SCHISTOCYTES SLIGHT; TARGET CELLS MODERATE; TOXIC GRANULATION/VACUOLAZATIO 2+
--- NOTE | 2020-09-03 17:51 | NUR ---
RT HERE TO PLACE ON C PAP Addendum: 09/03/20 at 1753 by PMCCLURE SAO2 88-90% ON 4L IS ON HOME 02
--- NOTE | 2020-09-03 17:59 | NUR ---
PLACED ON C PAP SAO2 UP TO 97%
[2020-09-03 18:00] VITALS: BP 96/65
--- NOTE | 2020-09-03 18:08 | NUR ---
PARCENTESIS FLUID SENT TO LAB
--- NOTE | 2020-09-03 18:11 | NUR ---
Con ALEXANDER APRN TO ROOM PATIENT GAVE VERBAL CONSENT FOR CENTRAL LINE PLACEMENT
[2020-09-03] MEDS ORDERED: ALBUMIN 25% 25 GM/100 ML 100 ML IV ONE (18:15)
[2020-09-03] MEDS ORDERED: PIPERACILLIN SODIUM/TAZOBACTAM 4.5 GM in NS (IVPB) 100 ML IV ONE (18:15)
--- NOTE | 2020-09-03 18:41 | NUR ---
UNABLE TO PLACE CENTRAL LINE BY Con ALEXANDER APRN. LAB CALLED TO DRAW 2ND BLOOD CULTURE AND LATIC ACID
[2020-09-03 18:42] LABS: BODY FLUID APPEARENCE SLT CLDY; BODY FLUID COLOR PALE YELLOW; BODY FLUID RBC COUNT 100 /uL; BODY FLUID SOURCE PERITONEAL; BODY FLUID WBC TOTAL COUNT 170 /uL
[2020-09-03 18:48] LABS: BF OTHER CELLS 0 %; LYMPHOCYTES,BODY FLUID 4 %
--- NOTE | 2020-09-03 18:50 | NUR ---
CALLED TO GIVE REPORT NURSE NOT AVIABLE
--- NOTE | 2020-09-03 19:13 | Diagnostic Imaging Report ---
INDICATION: Evaluate line placement. FINDINGS: Heart size is normal. There are patchy bilateral pulmonary infiltrates. There is a small right pleural effusion. There is no pneumothorax. The mediastinum is unremarkable. There is no evidence of central venous catheter. IMPRESSION: 1. No evidence of a central venous catheter. 2. Patchy bilateral pulmonary infiltrates and a small right pleural effusion. Dictated by: Dictated on workstation # [id number]
--- NOTE | 2020-09-03 19:21 | NUR ---
REPORT TO LINDA
[2020-09-03] MEDS ORDERED: fentaNYL INJECTION 100 MCG/2 ML AMP IVP ONE (19:30)
[2020-09-03 20:07] LABS: GLUCOSE, URINE (UA) NEGATIVE (NEGATIVE); KETONES,URINE TRACE (NEGATIVE); LEUKOCYTE ESTERASE ,URINE NEGATIVE (NEGATIVE); NITRITE,URINE POSITIVE (NEGATIVE); PROTEIN,URINE 2+ (NEGATIVE)
[2020-09-03 20:08] LABS: BILIRUBIN,URINE 3+ (NEGATIVE)
[2020-09-03 20:12] LABS: CLARITY,URINE SL CLOUDY; COLOR,URINE DARK YELLOW
[2020-09-03] MEDS ORDERED: HEParin DRIP 25000 UNIT/500ML 500 ML IV SCH (20:15)
[2020-09-03] MEDS ORDERED: HEParin 1000 UNIT/ML (10ML VIAL) FOR BOLUS IV SCH (20:15)
[2020-09-03 20:16] LABS: BACTERIA,URINE FEW /HPF; WBC,URINE 0-2 /HPF
[2020-09-03 20:17] LABS: AMORPHOUS SEDIMENT,UR MOD AMOR URATES /LPF
[2020-09-03 20:18] LABS: PROTHROMBIN TIME PATIENT 13.8 SEC (12.2-14.7)
[2020-09-03] MEDS ORDERED: NOREPINEPHRINE 4 MG/250 ML 250 ML IV SCH (20:30)
[2020-09-03 21:15] LABS: ABG BASE EXCESS -5.9 MMOL/L (-2.5-2.5); ABG OXYGEN SATURATION 97 % (94-100); ABG PCO2 27 MMHG (35-45); ABG PH 7.43 (7.37-7.43); ABG PO2 93 MMHG (79-93); ABG TCO2 18.4 MMOL/L (21.0-31.0)
[2020-09-03] MEDS ORDERED: NS IV 500 ML 500 ML IV SCH (21:15)
[2020-09-03 21:17] LABS: ALLENS TEST POSITIVE; INSPIRED O2 40%; PATIENT TEMP 99; VENTILATOR NO
[2020-09-03] MEDS ORDERED: NS IV 500 ML 500 ML IV ONE (22:00)
[2020-09-03] MEDS ORDERED: NS IV 1000 ML 1,000 ML IV SCH (22:00)
--- NOTE | 2020-09-03 22:00 | NUR ---
Betty ALEXANDER APRN NOTIFIED PT DAUGHTER, RONAK, THAT PT NOW REQUIRING IV BP MEDICATION AND REQUIRES A HIGHER LEVEL OF CARE. CURRENTLY NO ICU BEDS AVAILABLE AT THIS FACILITY AND PT HAS BEEN ACCEPTED TO [facility].
[2020-09-03 23:15] VITALS: BP 110/65
[2020-09-03] MEDS ORDERED: fentaNYL INJECTION 100 MCG/2 ML AMP ONE (23:37)
== END 2020-09-04 00:05 | disposition short-term general hospital (02) ==
LOC: EDUNIT# 16:57 → ER 16:58 → UNDOADMIN 18:54 → CSD 18:54 → EDLOC 18:54 → ER 09-04 00:05
DX: J96.91 Respiratory failure, unspecified with hypoxia (principal); R18.8 Other ascites; M79.605 Pain in left leg; A41.9 Sepsis, unspecified organism; J44.9 Chronic obstructive pulmonary disease, unspecified; K21.9 Gastro-esophageal reflux disease without esophagitis; I10 Essential (primary) hypertension; Z85.51 Personal history of malignant neoplasm of bladder; Z87.891 Personal history of nicotine dependence; Z20.828 Contact with and (suspected) exposure to other viral communicable diseases; Z79.82 Long term (current) use of aspirin
CPT/HCPCS: 51702; 71045; 80053; 81000; 82805; 83605; 83880; 84145; 85007; 85027; 85379; 85610; 85730; 86141; 87040; 87070; 87088; 87205; 89051; 94660; 99291; U0002; 36415; 87635